=== PATIENT | female | born 1980 | race Caucasian/White ===

== ENCOUNTER 2021-07-16 09:42 | Outpatient (REF) | payer OTHER, SELFPAY ==
--- NOTE | ~2021-07-16 | XR_ITS ---
EXAMINATION: XR KNEE, LEFT CLINICAL INFORMATION: Left knee pain. COMPARISON: None TECHNIQUE: Four views of the left knee. FINDINGS: Bones and soft tissues are normal. No fracture or joint effusion. Alignment is anatomic. Joint spaces are well maintained. No abnormal soft tissue calcification. XR/XR knee LT 2V IMPRESSION: Unremarkable left knee.
== END 2021-07-16 09:43 | disposition home or self-care (01) ==
LOC: HO.XRAY 09:42
PROVIDERS: PCP Internal Medicine; Visit Provider Internal Medicine
DX: M25.562 Pain in left knee (principal)
CPT/HCPCS: 73560

== ENCOUNTER 2021-12-16 16:05 | Outpatient (REF) | payer OTHER, SELFPAY ==
--- NOTE | ~2021-12-16 | XR_ITS ---
EXAMINATION: XR CHEST CLINICAL INFORMATION: Cough. COMPARISON: None TECHNIQUE: 2 views of the chest were obtained. FINDINGS: The lungs are well-expanded and clear. The heart size and the pulmonary vascularity is normal. No gross bony abnormality seen. XR/XR chest 2V IMPRESSION: Unremarkable chest exam.
== END 2021-12-16 16:06 | disposition home or self-care (01) ==
LOC: HO.XRAY 16:05
PROVIDERS: PCP Internal Medicine; Visit Provider Internal Medicine
DX: R05.9 Cough, unspecified (principal)
CPT/HCPCS: 71046

== ENCOUNTER 2021-12-17 00:08 | Emergency (ER) | payer OTHER, SELFPAY ==
[2021-12-17 00:41] VITALS: BP 135/76; PULSE 105; RESP 16; TEMP 37.9; O2SAT 97; BMI 24.1
[2021-12-17 01:30] LABS: Influenza A PCR NEGATIVE (Negative); Influenza B PCR NEGATIVE (Negative); Resp Syncy Virus RNA Qual PCR NEGATIVE (Negative); SARS COV2 PCR INHOUSE NEGATIVE (Negative)
--- NOTE | 2021-12-17 01:49 | ED.URI ---
HPI - URI/Sore Throat General Chief Complaint: General Medical Stated Complaint: SOB Time Seen by Provider: 12/17/21 01:49 Source: patient Mode of arrival: ambulatory Limitations: no limitations History of Present Illness HPI Narrative: Patient history of asthma been coughing for last 3 weeks patient does smoke no fever no chills mostly mucoid phlegm. Patient seen by her PCP who started her on amoxicillin using inhaler about not getting better Related Data Previous Rx's Medication Instructions Recorded ibuprofen 600 mg tablet 600 mg PO TID #90 tab 09/12/21 ProAir HFA 90 mcg/actuation 2 puff INHALATION Q4H PRN #8.5 g NS 11/26/21 aerosol inhaler (albuterol sulfate) amoxicillin 250 mg capsule 250 mg PO Q8H #30 cap 12/10/21 oxycodone 10 mg tablet 10 mg PO Q6H PRN 28 Days #112 tab 12/10/21 albuterol sulfate 2.5 mg (3 mL) INHALATION Q4-6H PRN 12/17/21 #90 ml codeine 10 mg-guaifenesin 100 mg/5 10 ml PO Q6-8H PRN #237 ml 12/17/21 mL oral liquid nebulizers #1 ea 12/17/21 prednisone 20 mg tablet 40 mg PO DAILY #10 tab 12/17/21 Allergies Allergy/AdvReac Type Severity Reaction Status Date / Time No Known Allergies Allergy Unknown Verified 12/10/21 09:30 Review of Systems Review of Systems: Yes all other systems are reviewed and are negative PMFSH Past Medical History Medical History Asthma Surgical History H/O tooth extraction History of carpal tunnel release History of D&C History of tonsillectomy History of total cystectomy Family History Family History Father Alive and well Mother Alive and well Maternal Aunt Breast cancer Social History Social History Housing: House Alcohol intake: current Alcohol intake frequency: does not drink Patient Tobacco Use Status: Current everyday Tobacco user Tobacco use type: Cigarette Cigarettes Per Day: 10 e-Cigarette/Vaping Use: Never Used Second Hand Smoke Exposure: No Advance Directives: No Patient : No service: No Current occupational status: employed Cognitive needs: No Hearing needs: No Vision needs: No Physical Exam Vital Signs: Vital Signs: Last Vital Signs Temp 100.2 F 12/17/21 00:41 Pulse 105 H 12/17/21 02:06 Resp 18 12/17/21 02:06 BP 135/76 12/17/21 00:41 Pulse Ox 97 12/17/21 00:41 BMI result Body Mass Index 24.1 Appearance: Alert. Oriented X3. No acute distress. Frequent cough ENT: Pharynx normal. Oral Mucosa moist Neck: Normal inspection. Neck supple. CVS: Normal heart rate and rhythm. Pulses normal. Respiratory: No respiratory distress. Equal air entry bilateral, bilateral wheezing and rhonchi no rales Abdomen: Soft and nontender. Bowel sounds are present, no mass palpable, no CVA tenderness Skin: Skin warm and dry. Normal skin color. Normal skin turgor. Extremities: No lower extremity edema. No calf tenderness Neuro: Oriented X 3. MDM - URI/Sore Throat MDM Narrative Medical decision making narrative: Patient with history of asthma chronic smoker chest x-ray negative for any infiltrate COVID negative felt better after nebulizer treatment discharge patient on prednisone patient already taking amoxicillin will continue same Lab Data Attestation: I reviewed the patient's lab results. Labs: Lab Results 12/17/21 Range/Units 00:48 Influenza Type A (PCR) NEGATIVE (Negative) Influenza Type B (PCR) NEGATIVE (Negative) RSV RNA Qual (PCR) NEGATIVE (Negative) SARS-CoV-2 RNA (RT-PCR) NEGATIVE (Negative) Discharge Plan Discharge Clinical Impression: Asthmatic bronchitis Patient Disposition: Home, Self-Care Instructions: Acute Bronchitis (ED) Additional Instructions: Stop smoking Continue your daily inhaler 2 puffs every 4 hours as needed Prednisone as prescribed Continue your antibiotics Prescriptions: New albuterol sulfate 2.5 mg /3 mL (0.083 %) solution for nebulization 2.5 mg inhalation Q4-6H PRN (Reason: shortness of breath or wheezing) Qty: 90 0RF prednisone 20 mg tablet 40 mg PO DAILY Qty: 10 0RF (DME) nebulizers Misc See Rx Instructions .Route Qty: 1 0RF Rx Instructions: As directed williamfenesin 10-100 mg/5 mL liquid 10 ml PO Q6-8H PRN (Reason: cough) Qty: 237 0RF No Action ibuprofen 600 mg tablet 600 mg PO TID Qty: 90 8RF albuterol sulfate [ProAir HFA] 90 mcg/actuation HFA aerosol inhaler 2 puff inhalation Q4H PRN (Reason: bronchospasm) Qty: 8.5 8RF amoxicillin 250 mg capsule 250 mg PO Q8H Qty: 30 0RF oxycodone 10 mg tablet 10 mg PO Q6H PRN (Reason: pain) 28 Days Qty: 112 0RF Rx Instructions: Covering for Dr Griffith Interventions: ED Discharge Assessment Last Done: 12/17/21 03:15 Discharge Date/Time: 12/17/21 03:15
[2021-12-17] MEDS: predniSONE 20 MG TABLET 40 MG PO (02:03)
[2021-12-17] MEDS: Albuterol/Iprat 2.5/0.5MG 3 ML AMPUL.NEB INHALE (02:05)
[2021-12-17 02:06] VITALS: PULSE 105; RESP 18; O2SAT 97
== END 2021-12-17 03:15 | disposition home or self-care (01) ==
PROVIDERS: Emergency Provider Internal Medicine; PCP Internal Medicine
DX: J45.909 Unspecified asthma, uncomplicated (principal); R06.02 Shortness of breath; F17.210 Nicotine dependence, cigarettes, uncomplicated; Z20.822 Contact with and (suspected) exposure to COVID-19; Z71.6 Tobacco abuse counseling; Z79.899 Other long term (current) drug therapy
CPT/HCPCS: 0241U; 99283; 99284

== ENCOUNTER 2023-04-28 09:54 | Outpatient (AMB) | payer OTHER, SELFPAY ==
--- NOTE | 2023-04-28 09:55 | A.OFFPC_ITS ---
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 Accompanied by: Self / Same As Patient Allergies No Known Allergies Allergy (Unknown, Verified 04/28/23 09:55) Medication List - Last Reconciled 04/28/23 by Santosh Griffith MD albuterol sulfate 90 mcg/actuation 2 puffs inhalation Q4-6H PRN 30 days albuterol sulfate 90 mcg/actuation (Ventolin HFA) 2 puffs inhalation Q4-6H PRN 30 days albuterol sulfate 2.5 mg (3 mL) inhalation Q4-6H PRN fluticasone propionate 110 mcg/actuation (Flovent HFA) 1 puff inhalation BID ibuprofen 600 mg PO TID nebulizers As directed nicotine 1 patch transdermal DAILY oxycodone 10 mg PO Q6H PRN 28 days selenium sulfide 2.5% 1 appl topical DAILY 30 days Tobacco use date assessed: 04/28/23 Dental Screening Dental Screen Date: 04/28/23 Did you have a dental visit in the last 12 months?: Yes Did you have a dental problem in the last 6 months where you did not have access to dental care?: No Was dental information given to patient?: Patient has dentist HPI Med Management HPI Details chronic back pain; doing well; compliant [facility] Medical History Asthma Surgical History H/O tooth extraction History of carpal tunnel release History of D&C History of tonsillectomy History of total cystectomy Family History Father Alive and well Mother Alive and well Maternal Aunt Breast cancer Social History Housing: House Alcohol intake: current Alcohol intake frequency: does not drink Patient Tobacco Use Status: Current everyday Tobacco user Tobacco use type: Cigarette Cigarettes Per Day: 10 e-Cigarette/Vaping Use: Never Used Second Hand Smoke Exposure: Yes service: No Current occupational status: employed Cognitive needs: No Hearing needs: No Vision needs: No Questionnaire PHQ-9 Over the last 2 weeks, how often have you been bothered by any of the following problems? Depression Screening Interpretation: Negative Source: Developed by Drs. Jeronimo Kenney, Floyd Chung and colleagues, with an educational yara from [employer]. Thrive Questionnaire Date Thrive assessed: 10/14/22 Currently or been in a relationship where the following occur: no concerns reported AUDIT C Alcohol Use Questionnaire (AUDIT-C) 1. How often do you have a drink containing alcohol?: Never 3. How often do you have six or more drinks on one occasion?: Never Total Score: 0 Score Reviewed/Action Taken: Yes FRANCHESCA-7 AMB Questionnaire FRANCHESCA-7 Date FRANCHESCA - 7 assessed: 10/14/22 Source: Developed by Drs. Jeronimo Kenney, Shawna Grier, Floyd Marcelo and colleagues, with an educational yara from [employer]. Review of Systems Const Denies chills, Denies headache(s) and Denies weight loss ENT Denies headache(s) Card Denies chest pain, Denies syncope, Denies irregular heart rhythm and Denies dyspnea Resp Denies chest congestion, Denies cough and Denies dyspnea GI Denies abdominal pain, Denies change in stool character, Denies nausea and Denies vomiting Musc Denies deformity and Denies joint swelling Neuro Denies syncope and Denies headache(s) Physical exam (Primary Care) Vital Signs: Last Vital Signs Pulse 78 04/28/23 09:56 BP 160/82 H 04/28/23 09:56 Pulse Ox 98 04/28/23 09:56 Oxygen Delivery Method Room Air 04/28/23 09:56 BMI result Body Mass Index 21.6 Tobacco/Smoking Status: Tobacco use Status Tobacco use date assessed 04/28/23 04/28/23 09:59 Patient Tobacco Use Status Current everyday Tobacco 04/28/23 09:55 Tobacco use type Cigarette 04/28/23 09:55 e-Cigarette/Vaping Use Never Used 04/28/23 09:55 Depression Screening Interpretation: Negative Thrive Assessment: Date of Thrive Assessment Date Thrive assessed 10/14/22 04/28/23 09:55 Currently or been in a relationship where the following occur: no concerns reported Const General: cooperative, comfortable and no acute distress Resp Effort & Inspection: normal respiratory effort Auscultation: clear to auscultation bilaterally Cardio Jugular venous distension: no JVD Rate: regular rate Rhythm: regular rhythm GI Inspection: Yes normal to inspection Assessment and Plan Assessment & Plan (1) Back pain: Code(s): M54.9 - Dorsalgia, unspecified Plan: stable; same rx Orders: Orders MM tomosynthesis screen imp BI Today Z12.31 - Encounter for screening mammogram for malignant neoplasm of breast Medications: Refilled oxycodone Covering for Dr Griffith 10 mg PO Q6H 28 days PRN 112 tabs 0RF pain Coding Level of Care Code Est Pt Level 3 (16202) Diagnoses Back pain M54.9
[2023-04-28 09:56] VITALS: BP 160/82; PULSE 78; O2SAT 98; BMI 21.6
== END 2023-04-28 10:04 | disposition home or self-care (01) ==
PROVIDERS: PCP Internal Medicine; Visit Provider Internal Medicine
DX: M54.9 Dorsalgia, unspecified (principal)
CPT/HCPCS: 99213

== ENCOUNTER 2023-05-26 09:31 | Outpatient (AMB) | payer OTHER, SELFPAY ==
--- NOTE | 2023-05-26 09:34 | A.OFFPC_ITS ---
Vital Signs 05/26/23 09:35 Height 5 ft 5 in Weight 134 lb 2 oz BMI 22.3 BP 120/70 Blood Pressure Location Lt brachial Position Sitting Pulse 92 Pulse Source Pulse Oximeter Pulse Oximetry (%) 98 Oxygen Delivery Method Room Air Intake Visit Reasons: Med Management Intake Note: Patient is here to follow up on med management. 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: Not Required per policy Accompanied by: Self / Same As Patient Allergies No Known Allergies Allergy (Unknown, Verified 05/26/23 09:34) Medication List - Last Reconciled 05/26/23 by Santosh Griffith MD albuterol sulfate 90 mcg/actuation 2 puffs inhalation Q4-6H PRN 30 days albuterol sulfate 90 mcg/actuation (Ventolin HFA) 2 puffs inhalation Q4-6H PRN 30 days albuterol sulfate 2.5 mg (3 mL) inhalation Q4-6H PRN fluticasone propionate 110 mcg/actuation (Flovent HFA) 1 puff inhalation BID ibuprofen 600 mg PO TID nebulizers As directed nicotine 1 patch transdermal DAILY oxycodone 10 mg PO Q6H PRN 28 days selenium sulfide 2.5% 1 appl topical DAILY 30 days Tobacco use date assessed: 05/26/23 HPI Med Management HPI Details f/u chronic back pain; stable and compliant [facility] Medical History Asthma Surgical History H/O tooth extraction History of carpal tunnel release History of D&C History of tonsillectomy History of total cystectomy Family History Father Alive and well Mother Alive and well Maternal Aunt Breast cancer Social History Housing: House Alcohol intake: current Alcohol intake frequency: does not drink Patient Tobacco Use Status: Current everyday Tobacco user Tobacco use type: Cigarette Cigarettes Per Day: 10 e-Cigarette/Vaping Use: Never Used Second Hand Smoke Exposure: Yes service: No Current occupational status: employed Cognitive needs: No Hearing needs: No Vision needs: No Questionnaire PHQ-9 Over the last 2 weeks, how often have you been bothered by any of the following problems? Depression Screening Interpretation: Negative Source: Developed by Drs. Jeronimo Kenney, Shawna Grier, Floyd Marcelo and colleagues, with an educational yara from [employer]. Thrive Questionnaire Date Thrive assessed: 10/14/22 Currently or been in a relationship where the following occur: no concerns reported FRANCHESCA-7 AMB Questionnaire FRANCHESCA-7 Date FRANCHESCA - 7 assessed: 10/14/22 Source: Developed by Drs. Jeronimo Kenney, Shawna Grier, Floyd Marcelo and colleagues, with an educational yara from [employer]. Review of Systems Const Denies chills, Denies headache(s) and Denies weight loss ENT Denies headache(s) Card Denies chest pain, Denies syncope, Denies irregular heart rhythm and Denies dyspnea Resp Denies chest congestion, Denies cough and Denies dyspnea GI Denies abdominal pain, Denies change in stool character, Denies nausea and Denies vomiting Musc Denies deformity and Denies joint swelling Neuro Denies syncope and Denies headache(s) Physical exam (Primary Care) Vital Signs: Last Vital Signs Pulse 92 05/26/23 09:35 BP 120/70 05/26/23 09:35 Pulse Ox 98 05/26/23 09:35 Oxygen Delivery Method Room Air 05/26/23 09:35 BMI result Body Mass Index 22.3 Tobacco/Smoking Status: Tobacco use Status Tobacco use date assessed 05/26/23 05/26/23 09:41 Patient Tobacco Use Status Current everyday Tobacco 05/26/23 09:41 Tobacco use type Cigarette 05/26/23 09:41 e-Cigarette/Vaping Use Never Used 05/26/23 09:41 Depression Screening Interpretation: Negative Thrive Assessment: Date of Thrive Assessment Date Thrive assessed 10/14/22 05/26/23 09:41 Currently or been in a relationship where the following occur: no concerns reported Const General: cooperative, comfortable and no acute distress Resp Effort & Inspection: normal respiratory effort Auscultation: clear to auscultation bilaterally Cardio Jugular venous distension: no JVD Rate: regular rate Rhythm: regular rhythm GI Inspection: Yes normal to inspection Assessment and Plan Assessment & Plan (1) Back pain: Code(s): M54.9 - Dorsalgia, unspecified Plan: stable; same rx Medications: New methylprednisolone (Medrol (Gregorio)) PO PER PKG DIR 21 ea 0RF Refilled oxycodone Covering for Dr Griffith 10 mg PO Q6H 28 days PRN 112 tabs 0RF pain Coding Level of Care Code Est Pt Level 3 (60531) Diagnoses Back pain M54.9
[2023-05-26 09:35] VITALS: BP 120/70; PULSE 92; O2SAT 98; BMI 22.3
== END 2023-05-26 09:47 | disposition home or self-care (01) ==
PROVIDERS: PCP Internal Medicine; Visit Provider Internal Medicine
DX: M54.9 Dorsalgia, unspecified (principal)
CPT/HCPCS: 99213

== ENCOUNTER 2023-06-23 09:25 | Outpatient (AMB) | payer OTHER, SELFPAY ==
[2023-06-23 09:26] VITALS: BP 120/66; PULSE 67; BMI 21.5
--- NOTE | 2023-06-23 09:26 | A.OFFPC_ITS ---
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 Accompanied by: Self / Same As Patient Allergies No Known Allergies Allergy (Unknown, Verified 06/23/23 09:27) Medication List - Last Reconciled 06/23/23 by Santosh Griffith MD albuterol sulfate 90 mcg/actuation 2 puffs inhalation Q4-6H PRN 30 days albuterol sulfate 90 mcg/actuation (Ventolin HFA) 2 puffs inhalation Q4-6H PRN 30 days albuterol sulfate 2.5 mg (3 mL) inhalation Q4-6H PRN fluticasone propionate 110 mcg/actuation (Flovent HFA) 1 puff inhalation BID ibuprofen 600 mg PO TID methylprednisolone (Medrol (Gregorio)) PO PER PKG DIR nebulizers As directed nicotine 1 patch transdermal DAILY oxycodone 10 mg PO Q6H PRN 28 days selenium sulfide 2.5% 1 appl topical DAILY 30 days Tobacco use date assessed: 05/26/23 Dental Screening Dental Screen Date: 06/23/23 Did you have a dental visit in the last 12 months?: Yes Did you have a dental problem in the last 6 months where you did not have access to dental care?: No Was dental information given to patient?: Patient has dentist HPI Med Management HPI Details chronic back pain on rx; doing well and compliant [facility] Medical History Asthma Surgical History H/O tooth extraction History of carpal tunnel release History of D&C History of total cystectomy History of tonsillectomy Family History Father Alive and well Mother Alive and well Maternal Aunt Breast cancer Social History Housing: House Alcohol intake: current Alcohol intake frequency: does not drink Patient Tobacco Use Status: Current everyday Tobacco user Tobacco use type: Cigarette Cigarettes Per Day: 10 e-Cigarette/Vaping Use: Never Used Second Hand Smoke Exposure: Yes service: No Current occupational status: employed Cognitive needs: No Hearing needs: No Vision needs: No Questionnaire PHQ-9 Over the last 2 weeks, how often have you been bothered by any of the following problems? 1. Little interest or pleasure in doing things: not at all 2. Feeling down, depressed, or hopeless: not at all 3. Trouble falling or staying asleep, or sleeping too much: not at all 4. Feeling tired or having little energy: not at all 5. Poor appetite or overeating: not at all 6. Feeling bad about yourself - or that you are a failure or have let yourself or your family down: not at all 7. Trouble concentrating on things, such as reading the newspaper or watching television: not at all 8. Moving or speaking so slowly that other people could have noticed. Or the opposite - being so fidgety or restless that you have been moving around a lot more than usual: not at all 9. Thoughts that you would be better off or of hurting yourself in some way: not at all Total score: 0 Depression Screening Interpretation: Negative Source: Developed by Drs. Jeronimo Kenney, Shawna Grier, Floyd Marcelo and colleagues, with an educational yara from [employer]. Thrive Questionnaire Date Thrive assessed: 10/14/22 AUDIT C Alcohol Use Questionnaire (AUDIT-C) 1. How often do you have a drink containing alcohol?: Never 3. How often do you have six or more drinks on one occasion?: Never Total Score: 0 Score Reviewed/Action Taken: Yes FRANCHESCA-7 AMB Questionnaire FRANCHESCA-7 Date FRANCHESCA - 7 assessed: 10/14/22 Source: Developed by Drs. Jeronimo Kenney, Floyd Chung and colleagues, with an educational yara from [employer]. Review of Systems Const Denies chills, Denies headache(s) and Denies weight loss ENT Denies headache(s) Card Denies chest pain, Denies syncope, Denies irregular heart rhythm and Denies dyspnea Resp Denies chest congestion, Denies cough and Denies dyspnea GI Denies abdominal pain, Denies change in stool character, Denies nausea and Denies vomiting Musc Denies deformity and Denies joint swelling Neuro Denies syncope and Denies headache(s) Physical exam (Primary Care) Vital Signs: Last Vital Signs Pulse 67 06/23/23 09:26 BP 120/66 06/23/23 09:26 Oxygen Delivery Method Room Air 06/23/23 09:26 BMI result Body Mass Index 21.5 Tobacco/Smoking Status: Tobacco use Status Tobacco use date assessed 05/26/23 06/23/23 09:29 Patient Tobacco Use Status Current everyday Tobacco 06/23/23 09:29 Tobacco use type Cigarette 06/23/23 09:29 e-Cigarette/Vaping Use Never Used 06/23/23 09:29 PHQ-9: PHQ-9 Score PHQ-9: Total score 0 06/23/23 09:29 Depression Screening Interpretation: Negative Thrive Assessment: Date of Thrive Assessment Date Thrive assessed 10/14/22 06/23/23 09:29 Const General: cooperative, comfortable, no acute distress and alert Neck Neck: Yes no lymphadenopathy Thyroid: Thyroid normal Resp Effort & Inspection: normal respiratory effort Auscultation: clear to auscultation bilaterally Percussion: percussion normal Cardio Jugular venous distension: no JVD Palpation: normal PMI Rate: regular rate Rhythm: regular rhythm Heart sounds: S1 normal heart sound present and S2 normal heart sound present GI Inspection: Yes normal to inspection Palpation (GI): No hepatosplenomegaly present Skin General skin exam: no rashes or lesions noted Extrem General: Yes no clubbing, cyanosis or edema Assessment and Plan Assessment & Plan (1) Back pain: Code(s): M54.9 - Dorsalgia, unspecified Plan: stable; same rx Medications: Refilled oxycodone Covering for Dr Griffith 10 mg PO Q6H PRN 112 tabs 0RF pain 28 days Coding Level of Care Code Est Pt Level 3 (15186) Diagnoses Back pain M54.9
== END 2023-06-23 09:38 | disposition home or self-care (01) ==
PROVIDERS: Visit Provider Internal Medicine
DX: M54.9 Dorsalgia, unspecified (principal)
CPT/HCPCS: 99213

== ENCOUNTER 2023-08-18 09:28 | Outpatient (AMB) | payer SELFPAY ==
[2023-08-18 09:30] VITALS: BP 122/68; PULSE 65; O2SAT 100; BMI 21.6
--- NOTE | 2023-08-18 09:30 | A.OFFPC_ITS ---
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: Not Required per policy Accompanied by: Self / Same As Patient Allergies No Known Allergies Allergy (Unknown, Verified 08/18/23 09:31) Medication List - Last Reconciled 08/18/23 by Santosh Griffith MD albuterol sulfate 90 mcg/actuation 2 puffs inhalation Q4-6H PRN 30 days albuterol sulfate 90 mcg/actuation (Ventolin HFA) 2 puffs inhalation Q4-6H PRN 30 days albuterol sulfate 2.5 mg (3 mL) inhalation Q4-6H PRN fluticasone propionate 110 mcg/actuation (Flovent HFA) 1 puff inhalation BID ibuprofen 600 mg PO TID methylprednisolone (Medrol (Gregorio)) PO PER PKG DIR nebulizers As directed nicotine 1 patch transdermal DAILY oxycodone 10 mg PO Q6H PRN 28 days Tobacco use date assessed: 05/26/23 Dental Screening Dental Screen Date: 08/18/23 Did you have a dental visit in the last 12 months?: Yes Did you have a dental problem in the last 6 months where you did not have access to dental care?: No Was dental information given to patient?: Patient has dentist HPI Med Management HPI Details f/u chronic back pain on pain management; doing well PFSH Medical History Asthma Surgical History H/O tooth extraction History of carpal tunnel release History of D&C History of total cystectomy History of tonsillectomy Family History Father Alive and well Mother Alive and well Maternal Aunt Breast cancer Social History Housing: House Alcohol intake: current Alcohol intake frequency: does not drink Patient Tobacco Use Status: Current everyday Tobacco user Tobacco use type: Cigarette Cigarettes Per Day: 10 e-Cigarette/Vaping Use: Never Used Second Hand Smoke Exposure: Yes service: No Current occupational status: employed Cognitive needs: No Hearing needs: No Vision needs: No Questionnaire PHQ-9 Over the last 2 weeks, how often have you been bothered by any of the following problems? 1. Little interest or pleasure in doing things: not at all 2. Feeling down, depressed, or hopeless: not at all 3. Trouble falling or staying asleep, or sleeping too much: not at all 4. Feeling tired or having little energy: not at all 5. Poor appetite or overeating: not at all 6. Feeling bad about yourself - or that you are a failure or have let yourself or your family down: not at all 7. Trouble concentrating on things, such as reading the newspaper or watching television: not at all 8. Moving or speaking so slowly that other people could have noticed. Or the opposite - being so fidgety or restless that you have been moving around a lot more than usual: not at all 9. Thoughts that you would be better off or of hurting yourself in some way: not at all Total score: 0 Depression Screening Interpretation: Negative Depression Screening Done: Yes Source: Developed by Drs. Jeronimo Kenney, Shawna Grier, Floyd Marcelo and colleagues, with an educational yara from [employer]. Thrive Questionnaire Date Thrive assessed: 10/14/22 AUDIT C Alcohol Use Questionnaire (AUDIT-C) 1. How often do you have a drink containing alcohol?: Never 3. How often do you have six or more drinks on one occasion?: Never Total Score: 0 Score Reviewed/Action Taken: Yes FRANCHESCA-7 AMB Questionnaire FRANCHESCA-7 Date FRANCHESCA - 7 assessed: 10/14/22 Source: Developed by Drs. Jeronimo Kenney, Shawna Grier, Floyd Marcelo and colleagues, with an educational yara from [employer]. Review of Systems Const Denies chills, Denies headache(s) and Denies weight loss ENT Denies headache(s) Card Denies chest pain, Denies syncope, Denies irregular heart rhythm and Denies dyspnea Resp Denies chest congestion, Denies cough and Denies dyspnea GI Denies abdominal pain, Denies change in stool character, Denies nausea and Denies vomiting Musc Denies deformity and Denies joint swelling Neuro Denies syncope and Denies headache(s) Physical exam (Primary Care) Vital Signs: Last Vital Signs Pulse 65 08/18/23 09:30 BP 122/68 08/18/23 09:30 Pulse Ox 100 08/18/23 09:30 Oxygen Delivery Method Room Air 08/18/23 09:30 BMI result Body Mass Index 21.6 Tobacco/Smoking Status: Tobacco use Status Tobacco use date assessed 05/26/23 08/18/23 09:35 Patient Tobacco Use Status Current everyday Tobacco 08/18/23 09:35 Tobacco use type Cigarette 08/18/23 09:35 e-Cigarette/Vaping Use Never Used 08/18/23 09:35 PHQ-9: PHQ-9 Score PHQ-9: Total score 0 08/18/23 09:35 Depression Screening Interpretation: Negative Thrive Assessment: Date of Thrive Assessment Date Thrive assessed 10/14/22 08/18/23 09:35 Const General: cooperative, comfortable, no acute distress and alert Neck Neck: Yes no lymphadenopathy Thyroid: Thyroid normal Resp Effort & Inspection: normal respiratory effort Auscultation: clear to auscultation bilaterally Percussion: percussion normal Cardio Jugular venous distension: no JVD Palpation: normal PMI Rate: regular rate Rhythm: regular rhythm Heart sounds: S1 normal heart sound present and S2 normal heart sound present GI Inspection: Yes normal to inspection Palpation (GI): No hepatosplenomegaly present Skin General skin exam: no rashes or lesions noted Extrem General: Yes no clubbing, cyanosis or edema Assessment and Plan Assessment & Plan (1) Back pain: Code(s): M54.9 - Dorsalgia, unspecified Plan: stable; same rx Orders: Orders Influenza [id number] Immunization Today Z23 - Encounter for immunization Medications: New flu vacc [id number] 6mos up(PF) 0.5 mL IM ONCE 0.5 mL 0RF Z23 - Encounter for immunization azithromycin take 500 mg today (day 1), then 250 mg for 4 days (days 2-5) PO 6 tabs 0RF Refilled oxycodone Covering for Dr Griffith 10 mg PO Q6H PRN 112 tabs 0RF pain 28 days Coding Level of Care Code Est Pt Level 3 (43791) Diagnoses Back pain M54.9
== END 2023-08-18 09:46 | disposition home or self-care (01) ==
PROVIDERS: Visit Provider Internal Medicine
DX: M54.9 Dorsalgia, unspecified (principal); Z23 Encounter for immunization
CPT/HCPCS: 90471; 90686; 99213

== ENCOUNTER 2023-09-15 09:29 | Outpatient (AMB) | payer OTHER, SELFPAY ==
[2023-09-15 09:33] VITALS: BP 116/62; PULSE 70; O2SAT 100; BMI 21.6
--- NOTE | 2023-09-15 09:33 | A.OFFPC_ITS ---
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: Not Required per policy Accompanied by: Self / Same As Patient Allergies No Known Allergies Allergy (Unknown, Verified 09/15/23 09:34) Medication List - Last Reconciled 09/15/23 by Santosh Griffith MD albuterol sulfate 90 mcg/actuation 2 puffs inhalation Q4-6H PRN 30 days albuterol sulfate 90 mcg/actuation (Ventolin HFA) 2 puffs inhalation Q4-6H PRN 30 days albuterol sulfate 2.5 mg (3 mL) inhalation Q4-6H PRN azithromycin take 500 mg today (day 1), then 250 mg for 4 days (days 2-5) PO fluticasone propionate 110 mcg/actuation (Flovent HFA) 1 puff inhalation BID ibuprofen 600 mg PO TID methylprednisolone (Medrol (Gregorio)) PO PER PKG DIR nebulizers As directed nicotine 1 patch transdermal DAILY oxycodone 10 mg PO Q6H PRN 28 days Tobacco use date assessed: 05/26/23 Dental Screening Dental Screen Date: 09/15/23 Did you have a dental visit in the last 12 months?: Yes Did you have a dental problem in the last 6 months where you did not have access to dental care?: No Was dental information given to patient?: Patient has dentist HPI Med Management HPI Details f/u chronic back pain; doing well on rx; compliant [facility] Medical History Asthma Surgical History H/O tooth extraction History of carpal tunnel release History of D&C History of total cystectomy History of tonsillectomy Family History Father Alive and well Mother Alive and well Maternal Aunt Breast cancer Social History Housing: House Alcohol intake: current Alcohol intake frequency: does not drink Patient Tobacco Use Status: Current everyday Tobacco user Tobacco use type: Cigarette Cigarettes Per Day: 10 e-Cigarette/Vaping Use: Never Used Second Hand Smoke Exposure: Yes service: No Current occupational status: employed Cognitive needs: No Hearing needs: No Vision needs: No Questionnaire Thrive Questionnaire Date Thrive assessed: 10/14/22 FRANCHESCA-7 AMB Questionnaire FRANCHESCA-7 Date FRANCHESCA - 7 assessed: 10/14/22 Source: Developed by Drs. Jeronimo Kenney, Shawna Grier, Floyd Marcelo and colleagues, with an educational yara from [employer]. Review of Systems Const Denies chills, Denies headache(s) and Denies weight loss ENT Denies headache(s) Card Denies chest pain, Denies syncope, Denies irregular heart rhythm and Denies dyspnea Resp Denies chest congestion, Denies cough and Denies dyspnea GI Denies abdominal pain, Denies change in stool character, Denies nausea and Denies vomiting Musc Denies deformity and Denies joint swelling Neuro Denies syncope and Denies headache(s) Physical exam (Primary Care) Vital Signs: Last Vital Signs Pulse 70 09/15/23 09:33 BP 116/62 09/15/23 09:33 Pulse Ox 100 09/15/23 09:33 Oxygen Delivery Method Room Air 09/15/23 09:33 BMI result Body Mass Index 21.6 Tobacco/Smoking Status: Tobacco use Status Tobacco use date assessed 05/26/23 09/15/23 09:34 Patient Tobacco Use Status Current everyday Tobacco 09/15/23 09:34 Tobacco use type Cigarette 09/15/23 09:34 e-Cigarette/Vaping Use Never Used 09/15/23 09:34 Thrive Assessment: Date of Thrive Assessment Date Thrive assessed 10/14/22 09/15/23 09:34 Const General: cooperative, comfortable, no acute distress and alert Neck Neck: Yes no lymphadenopathy Thyroid: Thyroid normal Resp Effort & Inspection: normal respiratory effort Auscultation: clear to auscultation bilaterally Percussion: percussion normal Cardio Jugular venous distension: no JVD Palpation: normal PMI Rate: regular rate Rhythm: regular rhythm Heart sounds: S1 normal heart sound present and S2 normal heart sound present GI Inspection: Yes normal to inspection Palpation (GI): No hepatosplenomegaly present Skin General skin exam: no rashes or lesions noted Extrem General: Yes no clubbing, cyanosis or edema Assessment and Plan Assessment & Plan (1) Back pain: Code(s): M54.9 - Dorsalgia, unspecified Plan: stable; same rx Medications: Refilled oxycodone Covering for Dr Griffith 10 mg PO Q6H PRN 112 tabs 0RF pain 28 days Coding Level of Care Code Est Pt Level 3 (63268) Diagnoses Back pain M54.9
== END 2023-09-15 09:43 | disposition home or self-care (01) ==
PROVIDERS: Visit Provider Internal Medicine
DX: M54.9 Dorsalgia, unspecified (principal)
CPT/HCPCS: 99213

== ENCOUNTER 2023-10-13 09:26 | Outpatient (AMB) | payer OTHER, SELFPAY ==
[2023-10-13 09:28] VITALS: BP 112/62; PULSE 88; O2SAT 98; BMI 22.0
--- NOTE | 2023-10-13 09:28 | MHC.PC.OV ---
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: Not Required per policy Accompanied by: Self / Same As Patient Allergies No Known Allergies Allergy (Unknown, Verified 10/13/23 09:28) Medication List - Last Reconciled 10/13/23 by Santosh Griffith MD albuterol sulfate 90 mcg/actuation (Ventolin HFA) 2 puffs inhalation Q4-6H PRN 30 days albuterol sulfate 90 mcg/actuation 2 puffs inhalation Q4-6H PRN 30 days albuterol sulfate 2.5 mg (3 mL) inhalation Q4-6H PRN azithromycin take 500 mg today (day 1), then 250 mg for 4 days (days 2-5) PO fluticasone propionate 110 mcg/actuation (Flovent HFA) 1 puff inhalation BID ibuprofen 600 mg PO TID methylprednisolone (Medrol (Gregorio)) PO PER PKG DIR nebulizers As directed nicotine 1 patch transdermal DAILY oxycodone 10 mg PO Q6H PRN 28 days Tobacco use date assessed: 10/13/23 Dental Screening Dental Screen Date: 10/13/23 Did you have a dental visit in the last 12 months?: Yes Did you have a dental problem in the last 6 months where you did not have access to dental care?: No Was dental information given to patient?: Patient has dentist HPI Med Management HPI Details chronic back pain on rx; doing well PFSH Medical History Asthma Surgical History H/O tooth extraction History of carpal tunnel release History of D&C History of total cystectomy History of tonsillectomy Family History Father Alive and well Mother Alive and well Maternal Aunt Breast cancer Social History Housing: House Alcohol intake: current Alcohol intake frequency: does not drink Patient Tobacco Use Status: Current everyday Tobacco user Tobacco use type: Cigarette Cigarettes Per Day: 10 e-Cigarette/Vaping Use: Never Used Second Hand Smoke Exposure: Yes service: No Current occupational status: employed Cognitive needs: No Hearing needs: No Vision needs: No Questionnaire PHQ-9 Over the last 2 weeks, how often have you been bothered by any of the following problems? 1. Little interest or pleasure in doing things: not at all 2. Feeling down, depressed, or hopeless: not at all 3. Trouble falling or staying asleep, or sleeping too much: not at all 4. Feeling tired or having little energy: not at all 5. Poor appetite or overeating: not at all 6. Feeling bad about yourself - or that you are a failure or have let yourself or your family down: not at all 7. Trouble concentrating on things, such as reading the newspaper or watching television: not at all 8. Moving or speaking so slowly that other people could have noticed. Or the opposite - being so fidgety or restless that you have been moving around a lot more than usual: not at all 9. Thoughts that you would be better off or of hurting yourself in some way: not at all Total score: 0 Depression Screening Interpretation: Negative Depression Screening Done: Yes Source: Developed by Drs. Jeronimo Kenney, Shawna Grier, Floyd Marcelo and colleagues, with an educational yara from [employer]. Thrive Questionnaire Date Thrive assessed: 10/13/23 I am a: Patient What is your living situation today?: I have a steady place to live Within the past 12 months, did the food you bought not last and you didn't have the money to get more?: Never true Within the past 12 months, did you worry whether your food would run out before you got money to buy more?: Never true Do you have trouble paying for medicines?: No Do you have trouble getting transportation to medical appointments?: No Do you have trouble paying your heating and electricity bill?: No Do you have trouble taking care of your child, family member or friend?: No Do you have trouble with day-to-day activities such as bathing, preparing meals, shopping, managing finances, etc.?: No Are you currently unemployed and looking for a job?: No Are you interested in more education?: No Please select the resources that you would like help with: None AUDIT C Alcohol Use Questionnaire (AUDIT-C) 1. How often do you have a drink containing alcohol?: Never 3. How often do you have six or more drinks on one occasion?: Never Total Score: 0 Score Reviewed/Action Taken: Yes FRANCHESCA-7 AMB Questionnaire FRANCHESCA-7 Date FRANCHESCA - 7 assessed: 10/13/23 Feeling nervous, anxious, or on edge: 1 = Several days Not being able to stop or control worryin = Several days Worrying too much about different things: 1 = Several days Trouble relaxin = Not at all Being so restless that it is hard to sit still: 0 = Not at all Becoming easily annoyed or irritable: 0 = Not at all Feeling afraid as if something awful might happen: 0 = Not at all Total FRANCHESCA-7 score (0-4 normal; 5-9 mild; 10-14 moderate; 15-21 severe): 3 Source: Developed by Drs. Jeronimo Kenney, Shawna Grier, Floyd Marcelo and colleagues, with an educational yara from [employer]. Review of Systems Const Denies chills, Denies headache(s) and Denies weight loss ENT Denies headache(s) Card Denies chest pain, Denies syncope, Denies irregular heart rhythm and Denies dyspnea Resp Denies chest congestion, Denies cough and Denies dyspnea GI Denies abdominal pain, Denies change in stool character, Denies nausea and Denies vomiting Musc Denies deformity and Denies joint swelling Neuro Denies syncope and Denies headache(s) Physical exam (Primary Care) Vital Signs: Last Vital Signs Pulse 88 10/13/23 09:28 BP 112/62 10/13/23 09:28 Pulse Ox 98 10/13/23 09:28 Oxygen Delivery Method Room Air 10/13/23 09:28 BMI result Body Mass Index 22.0 Tobacco/Smoking Status: Tobacco use Status Tobacco use date assessed 10/13/23 10/13/23 09:33 Patient Tobacco Use Status Current everyday Tobacco 10/13/23 09:33 Tobacco use type Cigarette 10/13/23 09:33 e-Cigarette/Vaping Use Never Used 10/13/23 09:33 PHQ-9: PHQ-9 Score PHQ-9: Total score 0 10/13/23 09:33 Depression Screening Interpretation: Negative Thrive Assessment: Date of Thrive Assessment Date Thrive assessed 10/13/23 10/13/23 09:33 Const General: cooperative, comfortable, no acute distress and alert Neck Neck: Yes no lymphadenopathy Thyroid: Thyroid normal Resp Effort & Inspection: normal respiratory effort Auscultation: clear to auscultation bilaterally Percussion: percussion normal Cardio Jugular venous distension: no JVD Palpation: normal PMI Rate: regular rate Rhythm: regular rhythm Heart sounds: S1 normal heart sound present and S2 normal heart sound present GI Inspection: Yes normal to inspection Palpation (GI): No hepatosplenomegaly present Skin General skin exam: no rashes or lesions noted Extrem General: Yes no clubbing, cyanosis or edema Assessment and Plan Assessment & Plan (1) Back pain: Code(s): M54.9 - Dorsalgia, unspecified Plan: stable; same rx Medications: New azithromycin take 500 mg today (day 1), then 250 mg for 4 days (days 2-5) orally; 6 tabs 0RF Refilled oxycodone Covering for Dr Griffith 10 mg PO Q6H PRN 112 tabs 0RF pain 28 days Coding Level of Care Code Est Pt Level 3 (30975) Diagnoses Back pain M54.9
== END 2023-10-13 09:39 | disposition home or self-care (01) ==
PROVIDERS: PCP Internal Medicine; Visit Provider Internal Medicine
DX: M54.9 Dorsalgia, unspecified (principal)
CPT/HCPCS: 99213

== ENCOUNTER 2023-11-10 09:25 | Outpatient (AMB) | payer OTHER, SELFPAY ==
[2023-11-10 09:27] VITALS: BP 142/72; PULSE 88; O2SAT 98; BMI 21.8
--- NOTE | 2023-11-10 09:27 | MHC.PC.OV ---
Vital Signs 11/10/23 09:27 Height 5 ft 5 in Weight 131 lb BMI 21.8 BP 142/72 H Blood Pressure Location Lt brachial Position Sitting Pulse 88 Pulse Source Pulse Oximeter Pulse Oximetry (%) 98 Oxygen Delivery Method Room Air Intake Visit Reasons: Med Management Residential Sales Associate Required: No Finisher Plate: Not Required per policy Accompanied by: Self / Same As Patient Allergies No Known Allergies Allergy (Unknown, Verified 10/13/23 09:28) Tobacco use date assessed: 10/13/23 HPI Med Management HPI Details f/u chronic back pain; doing well on rx and compliant PFSH Medical History Asthma Surgical History H/O tooth extraction History of carpal tunnel release History of D&C History of total cystectomy History of tonsillectomy Family History Father Alive and well Mother Alive and well Maternal Aunt Breast cancer Social History Housing: House Alcohol intake: current Alcohol intake frequency: does not drink Patient Tobacco Use Status: Current everyday Tobacco user Tobacco use type: Cigarette Cigarettes Per Day: 10 e-Cigarette/Vaping Use: Never Used Second Hand Smoke Exposure: Yes service: No Current occupational status: employed Cognitive needs: No Hearing needs: No Vision needs: No Questionnaire Thrive Questionnaire Date Thrive assessed: 10/13/23 FRANCHESCA-7 AMB Questionnaire FRANCHESCA-7 Date FRANCHESCA - 7 assessed: 10/13/23 Source: Developed by Drs. Jeronimo Kenney, Shawna Grier, Floyd Marcelo and colleagues, with an educational yara from [employer]. Review of Systems Const Denies chills, Denies headache(s) and Denies weight loss ENT Denies headache(s) Card Denies chest pain, Denies syncope, Denies irregular heart rhythm and Denies dyspnea Resp Denies chest congestion, Denies cough and Denies dyspnea GI Denies abdominal pain, Denies change in stool character, Denies nausea and Denies vomiting Musc Denies deformity and Denies joint swelling Neuro Denies syncope and Denies headache(s) Physical exam (Primary Care) Vital Signs: Last Vital Signs Pulse 88 11/10/23 09:27 BP 142/72 H 11/10/23 09:27 Pulse Ox 98 11/10/23 09:27 Oxygen Delivery Method Room Air 11/10/23 09:27 BMI result Body Mass Index 21.8 Tobacco/Smoking Status: Tobacco use Status Tobacco use date assessed 10/13/23 11/10/23 09:29 Patient Tobacco Use Status Current everyday Tobacco 11/10/23 09:29 Tobacco use type Cigarette 11/10/23 09:29 e-Cigarette/Vaping Use Never Used 11/10/23 09:29 Thrive Assessment: Date of Thrive Assessment Date Thrive assessed 10/13/23 11/10/23 09:29 Const General: cooperative, comfortable, no acute distress and alert Neck Neck: Yes no lymphadenopathy Thyroid: Thyroid normal Resp Effort & Inspection: normal respiratory effort Auscultation: clear to auscultation bilaterally Percussion: percussion normal Cardio Jugular venous distension: no JVD Palpation: normal PMI Rate: regular rate Rhythm: regular rhythm Heart sounds: S1 normal heart sound present and S2 normal heart sound present GI Inspection: Yes normal to inspection Palpation (GI): No hepatosplenomegaly present Skin General skin exam: no rashes or lesions noted Extrem General: Yes no clubbing, cyanosis or edema Assessment and Plan Assessment & Plan (1) Back pain: Code(s): M54.9 - Dorsalgia, unspecified Plan: stable; same rx Medications: Refilled oxycodone Covering for Dr Griffith 10 mg PO Q6H PRN 112 tabs 0RF pain 28 days Coding Level of Care Code Est Pt Level 3 (63386) Diagnoses Back pain M54.9
== END 2023-11-10 09:50 | disposition home or self-care (01) ==
PROVIDERS: PCP Internal Medicine; Visit Provider Internal Medicine
DX: M54.9 Dorsalgia, unspecified (principal)
CPT/HCPCS: 99213

== ENCOUNTER 2023-12-08 09:29 | Outpatient (AMB) | payer OTHER, SELFPAY ==
[2023-12-08 09:34] VITALS: BP 116/70; PULSE 80; O2SAT 99; BMI 22.8
--- NOTE | 2023-12-08 09:34 | A.OFFPC_ITS ---
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: Not Required per policy Accompanied by: Self / Same As Patient Allergies No Known Allergies Allergy (Unknown, Verified 12/08/23 09:35) Medication List - Last Reconciled 12/08/23 by Santosh Griffith MD albuterol sulfate 90 mcg/actuation (Ventolin HFA) 2 puffs inhalation Q4-6H PRN 30 days albuterol sulfate 90 mcg/actuation 2 puffs inhalation Q4-6H PRN 30 days albuterol sulfate 2.5 mg (3 mL) inhalation Q4-6H PRN fluticasone propionate 110 mcg/actuation (Flovent HFA) 1 puff inhalation BID ibuprofen 600 mg PO TID methylprednisolone (Medrol (Gregorio)) PO PER PKG DIR nebulizers As directed nicotine 1 patch transdermal DAILY oxycodone 10 mg PO Q6H PRN 28 days Tobacco use date assessed: 10/13/23 Dental Screening Dental Screen Date: 12/08/23 Did you have a dental visit in the last 12 months?: Yes Did you have a dental problem in the last 6 months where you did not have access to dental care?: No Was dental information given to patient?: Patient has dentist HPI Med Management HPI Details f/u chronic back pain; stable on rx PFSH Medical History Asthma Surgical History H/O tooth extraction History of carpal tunnel release History of D&C History of total cystectomy History of tonsillectomy Family History Father Alive and well Mother Alive and well Maternal Aunt Breast cancer Social History Housing: House Alcohol intake: current Alcohol intake frequency: does not drink Patient Tobacco Use Status: Current everyday Tobacco user Tobacco use type: Cigarette Cigarettes Per Day: 10 e-Cigarette/Vaping Use: Never Used Second Hand Smoke Exposure: Yes service: No Current occupational status: employed Cognitive needs: No Hearing needs: No Vision needs: No Questionnaire Thrive Questionnaire Date Thrive assessed: 10/13/23 FRANCHESCA-7 AMB Questionnaire FRANCHESCA-7 Date FRANCHESCA - 7 assessed: 10/13/23 Source: Developed by Drs. Jeronimo Kenney, Shawna Grier, Floyd Marcelo and colleagues, with an educational yara from [employer]. Review of Systems Const Denies chills, Denies headache(s) and Denies weight loss ENT Denies headache(s) Card Denies chest pain, Denies syncope, Denies irregular heart rhythm and Denies dyspnea Resp Denies chest congestion, Denies cough and Denies dyspnea GI Denies abdominal pain, Denies change in stool character, Denies nausea and Denies vomiting Musc Denies deformity and Denies joint swelling Neuro Denies syncope and Denies headache(s) Physical exam (Primary Care) Vital Signs: Last Vital Signs Pulse 80 12/08/23 09:34 BP 116/70 12/08/23 09:34 Pulse Ox 99 12/08/23 09:34 Oxygen Delivery Method Room Air 12/08/23 09:34 BMI result Body Mass Index 22.8 Tobacco/Smoking Status: Tobacco use Status Tobacco use date assessed 10/13/23 12/08/23 09:39 Patient Tobacco Use Status Current everyday Tobacco 12/08/23 09:39 Tobacco use type Cigarette 12/08/23 09:39 e-Cigarette/Vaping Use Never Used 12/08/23 09:39 Thrive Assessment: Date of Thrive Assessment Date Thrive assessed 10/13/23 12/08/23 09:39 Const General: cooperative, comfortable, no acute distress and alert Neck Neck: Yes no lymphadenopathy Thyroid: Thyroid normal Resp Effort & Inspection: normal respiratory effort Auscultation: clear to auscultation bilaterally Percussion: percussion normal Cardio Jugular venous distension: no JVD Palpation: normal PMI Rate: regular rate Rhythm: regular rhythm Heart sounds: S1 normal heart sound present and S2 normal heart sound present GI Inspection: Yes normal to inspection Palpation (GI): No hepatosplenomegaly present Skin General skin exam: no rashes or lesions noted Extrem General: Yes no clubbing, cyanosis or edema Assessment and Plan Assessment & Plan (1) Back pain: Code(s): M54.9 - Dorsalgia, unspecified Plan: stable; same rx Medications: Refilled albuterol sulfate 2.5 mg (3 mL) inhalation Q4-6H PRN 90 mL 0RF shortness of breath or wheezing oxycodone Covering for Dr Griffith 10 mg PO Q6H PRN 112 tabs 0RF pain 28 days Coding Level of Care Code Est Pt Level 3 (73633) Diagnoses Back pain M54.9
== END 2023-12-08 09:54 | disposition home or self-care (01) ==
PROVIDERS: PCP Internal Medicine; Visit Provider Internal Medicine
DX: M54.9 Dorsalgia, unspecified (principal)
CPT/HCPCS: 99213

== ENCOUNTER 2024-01-05 09:17 | Outpatient (AMB) | payer OTHER, SELFPAY ==
--- NOTE | 2024-01-05 09:18 | A.OFFPC_ITS ---
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: No Marketing Sales Consultant: Not Required per policy Accompanied by: Self / Same As Patient Allergies No Known Allergies Allergy (Unknown, Verified 01/05/24 09:19) Medication List - Last Reconciled 01/05/24 by Santosh Griffith MD albuterol sulfate 90 mcg/actuation (Ventolin HFA) 2 puffs inhalation Q4-6H PRN 30 days albuterol sulfate 90 mcg/actuation 2 puffs inhalation Q4-6H PRN 30 days albuterol sulfate 2.5 mg (3 mL) inhalation Q4-6H PRN fluticasone propionate 110 mcg/actuation (Flovent HFA) 1 puff inhalation BID ibuprofen 600 mg PO TID methylprednisolone (Medrol (Gregorio)) PO PER PKG DIR nebulizers As directed nicotine 1 patch transdermal DAILY oxycodone 10 mg PO Q6H PRN 28 days Tobacco use date assessed: 10/13/23 Dental Screening Dental Screen Date: 12/08/23 HPI Med Management HPI Details chronic back pain on rx; doing well and compliant [facility] Medical History Asthma Surgical History H/O tooth extraction History of carpal tunnel release History of D&C History of total cystectomy History of tonsillectomy Family History Father Alive and well Mother Alive and well Maternal Aunt Breast cancer Social History Housing: House Alcohol intake: current Alcohol intake frequency: does not drink Patient Tobacco Use Status: Current everyday Tobacco user Tobacco use type: Cigarette Cigarettes Per Day: 10 e-Cigarette/Vaping Use: Never Used Second Hand Smoke Exposure: Yes service: No Current occupational status: employed Cognitive needs: No Hearing needs: No Vision needs: No Questionnaire Thrive Questionnaire Date Thrive assessed: 10/13/23 FRANCHESCA-7 AMB Questionnaire FRANCHESCA-7 Date FRANCHESCA - 7 assessed: 10/13/23 Source: Developed by Drs. Jeronimo Kenney, Shawna Grier, Floyd Marcelo and colleagues, with an educational yara from [employer]. Review of Systems Const Denies chills, Denies headache(s) and Denies weight loss ENT Denies headache(s) Card Denies chest pain, Denies syncope, Denies irregular heart rhythm and Denies dyspnea Resp Denies chest congestion, Denies cough and Denies dyspnea GI Denies abdominal pain, Denies change in stool character, Denies nausea and Denies vomiting Musc Denies deformity and Denies joint swelling Neuro Denies syncope and Denies headache(s) Physical exam (Primary Care) Vital Signs: Last Vital Signs Pulse 79 01/05/24 09:19 BP 102/60 01/05/24 09:19 Pulse Ox 99 01/05/24 09:19 Oxygen Delivery Method Room Air 01/05/24 09:19 BMI result Body Mass Index 23.5 Tobacco/Smoking Status: Tobacco use Status Tobacco use date assessed 10/13/23 01/05/24 09:19 Patient Tobacco Use Status Current everyday Tobacco 01/05/24 09:19 Tobacco use type Cigarette 01/05/24 09:19 e-Cigarette/Vaping Use Never Used 01/05/24 09:19 Thrive Assessment: Date of Thrive Assessment Date Thrive assessed 10/13/23 01/05/24 09:19 Const General: cooperative, comfortable, no acute distress and alert Neck Neck: Yes no lymphadenopathy Thyroid: Thyroid normal Resp Effort & Inspection: normal respiratory effort Auscultation: clear to auscultation bilaterally Percussion: percussion normal Cardio Jugular venous distension: no JVD Palpation: normal PMI Rate: regular rate Rhythm: regular rhythm Heart sounds: S1 normal heart sound present and S2 normal heart sound present GI Inspection: Yes normal to inspection Palpation (GI): No hepatosplenomegaly present Skin General skin exam: no rashes or lesions noted Extrem General: Yes no clubbing, cyanosis or edema Assessment and Plan Assessment & Plan (1) Back pain: Code(s): M54.9 - Dorsalgia, unspecified Plan: stable; same rx Orders: Orders Lipid Panel Today E78.5 - Hyperlipidemia, unspecified Complete Blood Count Auto Diff Today D64.9 - Anemia, unspecified Comprehensive [place]. Panel Fast Today N28.9 - Disorder of kidney and ureter, unspecified Thyroid Stimulating Hormone Today E03.9 - Hypothyroidism, unspecified Medications: Refilled oxycodone Covering for Dr Griffith 10 mg PO Q6H PRN 112 tabs 0RF pain 28 days Coding Level of Care Code Est Pt Level 3 (31895) Diagnoses Back pain M54.9
[2024-01-05 09:19] VITALS: BP 102/60; PULSE 79; O2SAT 99; BMI 23.5
== END 2024-01-05 09:42 | disposition home or self-care (01) ==
PROVIDERS: PCP Internal Medicine; Visit Provider Internal Medicine
DX: M54.9 Dorsalgia, unspecified (principal)
CPT/HCPCS: 99213

== ENCOUNTER 2024-02-02 08:56 | Outpatient (REF) | payer OTHER, SELFPAY ==
[2024-02-02 09:16] LABS: MANUAL DIFF FLAG NO
[2024-02-02 09:45] LABS: Basophils Absolute Auto 0.1 X10*3/uL (0.0-0.2); Basophils Percent Auto 0.7 % (0-2); Eosinophils Absolute Auto 0.6 X10*3/uL (0.0-0.4); Eosinophils Percent Auto 8.1 % (0-4); Hematocrit 35.1 % (37.0-47.0); Hemoglobin 11.8 g/dl (12.0-16.0); Imm Gran Abs Auto 0.02 X10*3/uL (0.00-0.03); Imm Gran Pct Auto 0.3 % (0.0-0.4); Mean Corpuscular HGB Conc 33.6 g/dl (31.0-35.0); Mean Corpuscular Hemoglobin 30.7 pg (27.0-33.0); Mean Corpuscular Volume 91.4 fL (80.0-98.0); Mean Platelet Volume 10.9 fL (9.4-12.3); Monocytes Absolute Auto 0.5 X10*3/uL (0.1-1.2); Monocytes Percent Auto 6.5 % (2-11); Neutrophils Absolute Auto 4.3 x10*3/uL (2.0-8.3); Neutrophils Percent Auto 57.4 % (45-73); Platelet Count 362 X10*3/uL (160-400); Red Blood Count 3.84 X10*6/uL (4.20-5.50); Red Cell Distribution Width 12.8 % (11.0-16.0); White Blood Count 7.6 X10*3/uL (4.8-10.8)
[2024-02-02 10:33] LABS: Alkaline Phosphatase 70 U/L (39-117); Anion Gap 13 (12-20); Aspartate Amino Transferase 21 U/L (5-31); Bilirubin Total 0.3 mg/dL (0.0-1.0); Blood Urea Nitrogen 10 mg/dL (9-16); Calcium 9.2 mg/dL (8.4-10.2); Carbon Dioxide 27 mmol/L (22-29); Chloride 104 mmol/L (96-108); Cholesterol 171 mg/dL (<200); Estimated Glomerular Filt Rate > 60; Glucose Fasting 113 mg/dL (60-99); HDL Cholesterol 48 mg/dL (>40); LDL Cholesterol Calculated 111 mg/dL (<100); Potassium 3.8 mmol/L (3.3-5.1); Sodium 140 mmol/L (135-145); Triglycerides 61 mg/dL (<150)
[2024-02-02 10:35] LABS: Thyroid Stimulating Hormone 0.46 uIU/mL (0.32-4.0)
== END 2024-02-02 08:57 | disposition home or self-care (01) ==
LOC: HO.LAB 08:56
PROVIDERS: Visit Provider Internal Medicine
DX: E78.5 Hyperlipidemia, unspecified (principal); E03.9 Hypothyroidism, unspecified; D64.9 Anemia, unspecified; N28.9 Disorder of kidney and ureter, unspecified
CPT/HCPCS: 36415; 80053; 80061; 84443; 85025

== ENCOUNTER 2024-02-02 09:29 | Outpatient (AMB) | payer OTHER, SELFPAY ==
[2024-02-02 09:31] VITALS: BP 140/80; PULSE 80; O2SAT 99; BMI 22.8
--- NOTE | 2024-02-02 09:31 | MHC.PC.OV ---
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 Quality Assurance Lab Technician: Not Required per policy Accompanied by: Self / Same As Patient Allergies No Known Allergies Allergy (Unknown, Verified 02/02/24 09:31) Medication List - Last Reconciled 02/02/24 by Santosh Griffith MD albuterol sulfate 90 mcg/actuation (Ventolin HFA) 2 puffs inhalation Q4-6H PRN 30 days albuterol sulfate 90 mcg/actuation 2 puffs inhalation Q4-6H PRN 30 days albuterol sulfate 2.5 mg (3 mL) inhalation Q4-6H PRN fluticasone propionate 110 mcg/actuation (Flovent HFA) 1 puff inhalation BID ibuprofen 600 mg PO TID methylprednisolone (Medrol (Gregorio)) PO PER PKG DIR nebulizers As directed nicotine 1 patch transdermal DAILY oxycodone 10 mg PO Q6H PRN 28 days Tobacco use date assessed: 10/13/23 Dental Screening Dental Screen Date: 12/08/23 HPI Med Management HPI Details chronic back pain on pain mangement; stable and compliant [facility] Medical History Asthma Surgical History H/O tooth extraction History of carpal tunnel release History of D&C History of total cystectomy History of tonsillectomy Family History Father Alive and well Mother Alive and well Maternal Aunt Breast cancer Social History Housing: House Alcohol intake: current Alcohol intake frequency: does not drink Patient Tobacco Use Status: Current everyday Tobacco user Tobacco use type: Cigarette Cigarettes Per Day: 10 e-Cigarette/Vaping Use: Never Used Second Hand Smoke Exposure: Yes service: No Current occupational status: employed Cognitive needs: No Hearing needs: No Vision needs: No Questionnaire Thrive Questionnaire Date Thrive assessed: 10/13/23 FRANCHESCA-7 AMB Questionnaire FRANCHESCA-7 Date FRANCHESCA - 7 assessed: 10/13/23 Source: Developed by Drs. Jeronimo Kenney, Shawna Grier, Floyd Marcelo and colleagues, with an educational yara from [employer]. Review of Systems Const Denies chills, Denies headache(s) and Denies weight loss ENT Denies headache(s) Card Denies chest pain, Denies syncope, Denies irregular heart rhythm and Denies dyspnea Resp Denies chest congestion, Denies cough and Denies dyspnea GI Denies abdominal pain, Denies change in stool character, Denies nausea and Denies vomiting Musc Denies deformity and Denies joint swelling Neuro Denies syncope and Denies headache(s) Physical exam (Primary Care) Vital Signs: Last Vital Signs Pulse 80 02/02/24 09:31 BP 140/80 H 02/02/24 09:31 Pulse Ox 99 02/02/24 09:31 Oxygen Delivery Method Room Air 02/02/24 09:31 BMI result Body Mass Index 22.8 Tobacco/Smoking Status: Tobacco use Status Tobacco use date assessed 10/13/23 02/02/24 09:32 Patient Tobacco Use Status Current everyday Tobacco 02/02/24 09:32 Tobacco use type Cigarette 02/02/24 09:32 e-Cigarette/Vaping Use Never Used 02/02/24 09:32 Thrive Assessment: Date of Thrive Assessment Date Thrive assessed 10/13/23 02/02/24 09:32 Const General: cooperative, comfortable, no acute distress and alert Neck Neck: Yes no lymphadenopathy Thyroid: Thyroid normal Resp Effort & Inspection: normal respiratory effort Auscultation: clear to auscultation bilaterally Percussion: percussion normal Cardio Jugular venous distension: no JVD Palpation: normal PMI Rate: regular rate Rhythm: regular rhythm Heart sounds: S1 normal heart sound present and S2 normal heart sound present GI Inspection: Yes normal to inspection Palpation (GI): No hepatosplenomegaly present Skin General skin exam: no rashes or lesions noted Extrem General: Yes no clubbing, cyanosis or edema Assessment and Plan Assessment & Plan (1) Back pain: Code(s): M54.9 - Dorsalgia, unspecified Plan: stable; same rx Medications: Refilled ibuprofen 600 mg PO TID 90 tabs 8RF albuterol sulfate 2.5 mg (3 mL) inhalation Q4-6H PRN 90 mL 0RF shortness of breath or wheezing oxycodone Covering for Dr Griffith 10 mg PO Q6H PRN 112 tabs 0RF pain 28 days Coding Level of Care Code Est Pt Level 3 (59567) Diagnoses Back pain M54.9
== END 2024-02-02 09:45 | disposition home or self-care (01) ==
PROVIDERS: PCP Internal Medicine; Visit Provider Internal Medicine
DX: M54.9 Dorsalgia, unspecified (principal)
CPT/HCPCS: 99213

== ENCOUNTER 2024-03-29 09:50 | Outpatient (AMB) | payer OTHER, SELFPAY ==
[2024-03-29 09:54] VITALS: BP 130/64; PULSE 69; O2SAT 99; BMI 21.8
--- NOTE | 2024-03-29 09:54 | A.OFFPC_ITS ---
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 per policy Accompanied by: Self / Same As Patient Allergies No Known Allergies Allergy (Unknown, Verified 03/29/24 09:54) Tobacco use date assessed: 10/13/23 Dental Screening Dental Screen Date: 12/08/23 HPI Med Management HPI Details chronic back pain on rx; LDD; compliant with regimen PFSH Medical History Asthma Surgical History H/O tooth extraction History of carpal tunnel release History of D&C History of total cystectomy History of tonsillectomy Family History Father Alive and well Mother Alive and well Maternal Aunt Breast cancer Social History Housing: House Alcohol intake: current Alcohol intake frequency: does not drink Patient Tobacco Use Status: Current everyday Tobacco user Tobacco use type: Cigarette Cigarettes Per Day: 10 e-Cigarette/Vaping Use: Never Used Second Hand Smoke Exposure: Yes service: No Current occupational status: employed Cognitive needs: No Hearing needs: No Vision needs: No Questionnaire Thrive Questionnaire Date Thrive assessed: 10/13/23 FRANCHESCA-7 AMB Questionnaire FRANCHESCA-7 Date FRANCHESCA - 7 assessed: 10/13/23 Source: Developed by Drs. Jeronimo Kenney, Shawna Grier, Floyd Marcelo and colleagues, with an educational yara from [employer].. Review of Systems Const Denies chills, Denies headache(s) and Denies weight loss ENT Denies headache(s) Card Denies chest pain, Denies syncope, Denies irregular heart rhythm and Denies dyspnea Resp Denies chest congestion, Denies cough and Denies dyspnea GI Denies abdominal pain, Denies change in stool character, Denies nausea and Denies vomiting Musc Denies deformity and Denies joint swelling Neuro Denies syncope and Denies headache(s) Physical exam (Primary Care) Vital Signs: Last Vital Signs Pulse 69 03/29/24 09:54 BP 130/64 03/29/24 09:54 Pulse Ox 99 03/29/24 09:54 Oxygen Delivery Method Room Air 03/29/24 09:54 BMI result Body Mass Index 21.8 Tobacco/Smoking Status: Tobacco use Status Tobacco use date assessed 10/13/23 03/29/24 09:54 Patient Tobacco Use Status Current everyday Tobacco 03/29/24 09:54 Tobacco use type Cigarette 03/29/24 09:54 e-Cigarette/Vaping Use Never Used 03/29/24 09:54 Thrive Assessment: Date of Thrive Assessment Date Thrive assessed 10/13/23 03/29/24 09:54 Const General: cooperative, comfortable, no acute distress and alert Neck Neck: Yes no lymphadenopathy Thyroid: Thyroid normal Resp Effort & Inspection: normal respiratory effort Auscultation: clear to auscultation bilaterally Percussion: percussion normal Cardio Jugular venous distension: no JVD Palpation: normal PMI Rate: regular rate Rhythm: regular rhythm Heart sounds: S1 normal heart sound present and S2 normal heart sound present GI Inspection: Yes normal to inspection Palpation (GI): No hepatosplenomegaly present Skin General skin exam: no rashes or lesions noted Extrem General: Yes no clubbing, cyanosis or edema Assessment and Plan Assessment & Plan (1) Back pain: Code(s): M54.9 - Dorsalgia, unspecified Plan: stable; same rx Medications: Refilled oxycodone Covering for Dr Griffith 10 mg PO Q6H 28 days PRN 112 tabs 0RF pain Coding Level of Care Code Est Pt Level 3 (45755) Diagnoses Back pain M54.9
== END 2024-03-29 10:04 | disposition home or self-care (01) ==
PROVIDERS: PCP Internal Medicine; Visit Provider Internal Medicine
DX: M54.9 Dorsalgia, unspecified (principal)
CPT/HCPCS: 99213

== ENCOUNTER 2024-05-24 10:49 | Outpatient (AMB) | payer OTHER, SELFPAY ==
[2024-05-24 10:50] VITALS: BP 142/82; PULSE 98; O2SAT 98; BMI 21.6
--- NOTE | 2024-05-24 10:50 | A.OFFPC_ITS ---
Vital Signs 05/24/24 10:50 Height 5 ft 5 in Weight 130 lb BMI 21.6 BP 142/82 H Blood Pressure Location Lt brachial Position Sitting Pulse 98 Pulse Source Pulse Oximeter Pulse Oximetry (%) 98 Oxygen Delivery Method Room Air Intake Visit Reasons: med management Allergies No Known Allergies Allergy (Unknown, Verified 05/24/24 10:50) Tobacco use date assessed: 10/13/23 Dental Screening Dental Screen Date: 05/24/24 Did you have a dental visit in the last 12 months?: Yes Did you have a dental problem in the last 6 months where you did not have access to dental care?: No Was dental information given to patient?: Patient has dentist HPI med management HPI Details chronic low back pain; compliant with regimen [facility] Medical History Asthma Surgical History H/O tooth extraction History of carpal tunnel release History of D&C History of total cystectomy History of tonsillectomy Family History Father Alive and well Mother Alive and well Maternal Aunt Breast cancer Social History Housing: House Alcohol intake: current Alcohol intake frequency: does not drink Patient Tobacco Use Status: Current everyday Tobacco user Tobacco use type: Cigarette Cigarettes Per Day: 10 e-Cigarette/Vaping Use: Never Used Second Hand Smoke Exposure: Yes service: No Current occupational status: employed Cognitive needs: No Hearing needs: No Vision needs: No Questionnaire PHQ-9 Over the last 2 weeks, how often have you been bothered by any of the following problems? 1. Little interest or pleasure in doing things: not at all 2. Feeling down, depressed, or hopeless: not at all 3. Trouble falling or staying asleep, or sleeping too much: not at all 4. Feeling tired or having little energy: not at all 5. Poor appetite or overeating: not at all 6. Feeling bad about yourself - or that you are a failure or have let yourself or your family down: not at all 7. Trouble concentrating on things, such as reading the newspaper or watching television: not at all 8. Moving or speaking so slowly that other people could have noticed. Or the opposite - being so fidgety or restless that you have been moving around a lot more than usual: not at all 9. Thoughts that you would be better off or of hurting yourself in some way: not at all Total score: 0 Depression Screening Interpretation: Negative Depression Screening Done: Yes Source: Developed by Drs. Jeronimo Kenney, Shawna Grier, Floyd Marcelo and colleagues, with an educational yara from [email or web address]. Thrive Questionnaire Date Thrive assessed: 10/13/23 AUDIT C Alcohol Use Questionnaire (AUDIT-C) 1. How often do you have a drink containing alcohol?: Never 3. How often do you have six or more drinks on one occasion?: Never Total Score: 0 Score Reviewed/Action Taken: Yes FRANCHESCA-7 AMB Questionnaire FRANCHESCA-7 Date FRANCHESCA - 7 assessed: 10/13/23 Source: Developed by Drs. Jeronimo Kenney, Shawna Grier, Floyd Marcelo and colleagues, with an educational yara from [email or web address]. Review of Systems Const Denies chills, Denies headache(s) and Denies weight loss ENT Denies headache(s) Card Denies chest pain, Denies syncope, Denies irregular heart rhythm and Denies dyspnea Resp Denies chest congestion, Denies cough and Denies dyspnea GI Denies abdominal pain, Denies change in stool character, Denies nausea and Denies vomiting Musc Denies deformity and Denies joint swelling Neuro Denies syncope and Denies headache(s) Physical exam (Primary Care) Vital Signs: Last Vital Signs Pulse 98 05/24/24 10:50 BP 142/82 H 05/24/24 10:50 Pulse Ox 98 05/24/24 10:50 Oxygen Delivery Method Room Air 05/24/24 10:50 BMI result Body Mass Index 21.6 Tobacco/Smoking Status: Tobacco use Status Tobacco use date assessed 10/13/23 05/24/24 10:54 Patient Tobacco Use Status Current everyday Tobacco 05/24/24 10:54 Tobacco use type Cigarette 05/24/24 10:54 e-Cigarette/Vaping Use Never Used 05/24/24 10:54 PHQ-9: PHQ-9 Score PHQ-9: Total score 0 05/24/24 10:54 Depression Screening Interpretation: Negative Thrive Assessment: Date of Thrive Assessment Date Thrive assessed 10/13/23 05/24/24 10:54 Const General: cooperative, comfortable, no acute distress and alert Neck Neck: Yes no lymphadenopathy Thyroid: Thyroid normal Resp Effort & Inspection: normal respiratory effort Auscultation: clear to auscultation bilaterally Percussion: percussion normal Cardio Jugular venous distension: no JVD Palpation: normal PMI Rate: regular rate Rhythm: regular rhythm Heart sounds: S1 normal heart sound present and S2 normal heart sound present GI Inspection: Yes normal to inspection Palpation (GI): No hepatosplenomegaly present Skin General skin exam: no rashes or lesions noted Extrem General: Yes no clubbing, cyanosis or edema Assessment and Plan Assessment & Plan (1) Back pain: Code(s): M54.9 - Dorsalgia, unspecified Plan: stable; same rx Medications: Refilled oxycodone Covering for Dr Griffith 10 mg PO Q6H 28 days PRN 112 tabs 0RF pain Coding Level of Care Code Est Pt Level 3 (72795) Diagnoses Back pain M54.9
== END 2024-05-24 11:08 | disposition home or self-care (01) ==
PROVIDERS: PCP Internal Medicine; Visit Provider Internal Medicine
DX: M54.9 Dorsalgia, unspecified (principal)
CPT/HCPCS: 99213

== ENCOUNTER 2024-07-19 09:35 | Outpatient (AMB) | payer OTHER, SELFPAY ==
--- NOTE | 2024-07-19 09:35 | A.OFFPC_ITS ---
Vital Signs 07/19/24 09:36 Height 5 ft 5 in Weight 131 lb BMI 21.8 BP 114/60 Blood Pressure Location Lt brachial Position Sitting Pulse 67 Pulse Source Pulse Oximeter Pulse Oximetry (%) 97 Oxygen Delivery Method Room Air Intake Visit Reasons: Med management Standard Machine Stitcher Required: No Accompanied by: Self / Same As Patient Allergies No Known Allergies Allergy (Unknown, Verified 07/19/24 09:36) Medication List - Last Reconciled 07/19/24 by Santosh Griffith MD albuterol sulfate 90 mcg/actuation (Ventolin HFA) 2 puffs inhalation Q4-6H PRN 30 days albuterol sulfate 90 mcg/actuation 2 puffs inhalation Q4-6H PRN 30 days albuterol sulfate 2.5 mg (3 mL) inhalation Q4-6H PRN fluticasone propionate 110 mcg/actuation (Flovent HFA) 1 puff inhalation BID ibuprofen 600 mg PO TID nebulizers As directed nicotine 1 patch transdermal DAILY oxycodone 10 mg PO Q6H PRN 28 days Tobacco use date assessed: 10/13/23 Dental Screening Dental Screen Date: 05/24/24 HPI Med management HPI Details chronic back pain on rx; doing well and compliant [facility] Medical History Asthma Surgical History H/O tooth extraction History of carpal tunnel release History of D&C History of total cystectomy History of tonsillectomy Family History Father Alive and well Mother Alive and well Maternal Aunt Breast cancer Social History Housing: House Alcohol intake: current Alcohol intake frequency: does not drink Patient Tobacco Use Status: Current everyday Tobacco user Tobacco use type: Cigarette Cigarettes Per Day: 10 e-Cigarette/Vaping Use: Never Used Second Hand Smoke Exposure: Yes service: No Current occupational status: employed Cognitive needs: No Hearing needs: No Vision needs: No Questionnaire PHQ-9 Over the last 2 weeks, how often have you been bothered by any of the following problems? 1. Little interest or pleasure in doing things: not at all 2. Feeling down, depressed, or hopeless: not at all 3. Trouble falling or staying asleep, or sleeping too much: not at all 4. Feeling tired or having little energy: not at all 5. Poor appetite or overeating: not at all 6. Feeling bad about yourself - or that you are a failure or have let yourself or your family down: not at all 7. Trouble concentrating on things, such as reading the newspaper or watching television: not at all 8. Moving or speaking so slowly that other people could have noticed. Or the opposite - being so fidgety or restless that you have been moving around a lot more than usual: not at all 9. Thoughts that you would be better off or of hurting yourself in some way: not at all Total score: 0 Depression Screening Interpretation: Negative Depression Screening Done: Yes Source: Developed by Drs. Jeronimo Kenney, Shawna Grier, Floyd Marcelo and colleagues, with an educational yara from [employer]. Thrive Questionnaire Date Thrive assessed: 10/13/23 Are you currently unemployed and looking for a job?: I choose not to answer this question AUDIT C Alcohol Use Questionnaire (AUDIT-C) 1. How often do you have a drink containing alcohol?: Never 3. How often do you have six or more drinks on one occasion?: Never Total Score: 0 Score Reviewed/Action Taken: Yes FRANCHESCA-7 AMB Questionnaire FRANCHESCA-7 Date FRANCHESCA - 7 assessed: 10/13/23 Source: Developed by Drs. Jeronimo Kenney, Shawna Grier, Floyd Marcelo and colleagues, with an educational yara from [employer]. Review of Systems Const Denies chills, Denies headache(s) and Denies weight loss ENT Denies headache(s) Card Denies chest pain, Denies syncope, Denies irregular heart rhythm and Denies dyspnea Resp Denies chest congestion, Denies cough and Denies dyspnea GI Denies abdominal pain, Denies change in stool character, Denies nausea and Denies vomiting Musc Denies deformity and Denies joint swelling Neuro Denies syncope and Denies headache(s) Physical exam (Primary Care) Vital Signs: Last Vital Signs Pulse 67 07/19/24 09:36 BP 114/60 07/19/24 09:36 Pulse Ox 97 07/19/24 09:36 Oxygen Delivery Method Room Air 07/19/24 09:36 BMI result Body Mass Index 21.8 Tobacco/Smoking Status: Tobacco use Status Tobacco use date assessed 10/13/23 07/19/24 09:40 Patient Tobacco Use Status Current everyday Tobacco 07/19/24 09:40 Tobacco use type Cigarette 07/19/24 09:40 e-Cigarette/Vaping Use Never Used 07/19/24 09:40 PHQ-9: PHQ-9 Score PHQ-9: Total score 0 07/19/24 09:40 Depression Screening Interpretation: Negative Thrive Assessment: Date of Thrive Assessment Date Thrive assessed 10/13/23 07/19/24 09:40 Const General: cooperative, comfortable, no acute distress and alert Neck Neck: Yes no lymphadenopathy Thyroid: Thyroid normal Resp Effort & Inspection: normal respiratory effort Auscultation: clear to auscultation bilaterally Percussion: percussion normal Cardio Jugular venous distension: no JVD Palpation: normal PMI Rate: regular rate Rhythm: regular rhythm Heart sounds: S1 normal heart sound present and S2 normal heart sound present GI Inspection: Yes normal to inspection Palpation (GI): No hepatosplenomegaly present Skin General skin exam: no rashes or lesions noted Extrem General: Yes no clubbing, cyanosis or edema Coding Level of Care Code Est Pt Level 3 (23453) Diagnoses Back pain M54.9 Assessment & Plan Assessment & Plan (1) Back pain: Code(s): M54.9 - Dorsalgia, unspecified Category: Medical Plan: stable; same rx Medications: New cephalexin 250 mg PO Q6H 20 caps 0RF Refilled albuterol sulfate 2.5 mg (3 mL) inhalation Q4-6H PRN 90 mL 0RF shortness of breath or wheezing oxycodone Covering for Dr Griffith 10 mg PO Q6H 28 days PRN 112 tabs 0RF pain selenium sulfide 2.5% 1 appl topical DAILY 30 days 120 mL 2RF
[2024-07-19 09:36] VITALS: BP 114/60; PULSE 67; O2SAT 97; BMI 21.8
== END 2024-07-19 09:49 | disposition home or self-care (01) ==
PROVIDERS: PCP Internal Medicine; Visit Provider Internal Medicine
DX: M54.9 Dorsalgia, unspecified (principal)

== ENCOUNTER → 2024-07-19 09:35 | Outpatient (BNVA) | payer OTHER, SELFPAY | PROVIDERS: PCP Internal Medicine; Visit Provider Internal Medicine | DX: M54.9 Dorsalgia, unspecified (principal) | CPT/HCPCS: 96127; 99212 ==

== ENCOUNTER 2024-08-16 09:33 | Outpatient (AMB) | payer OTHER, SELFPAY ==
[2024-08-16 09:40] VITALS: BP 108/64; PULSE 68; O2SAT 98; BMI 22.5
--- NOTE | 2024-08-16 09:40 | MHC.PC.OV ---
Vital Signs 08/16/24 09:40 Height 5 ft 5 in Weight 135 lb BMI 22.5 BP 108/64 Blood Pressure Location Lt brachial Position Sitting Pulse 68 Pulse Source Pulse Oximeter Pulse Oximetry (%) 98 Oxygen Delivery Method Room Air Intake Visit Reasons: Med Management Nursing Education Consultant Required: No Accompanied by: Self / Same As Patient Allergies No Known Allergies Allergy (Unknown, Verified 08/16/24 09:41) Medication List - Last Reconciled 08/16/24 by Santosh Griffith MD albuterol sulfate 90 mcg/actuation (Ventolin HFA) 2 puffs inhalation Q4-6H PRN 30 days albuterol sulfate 90 mcg/actuation 2 puffs inhalation Q4-6H PRN 30 days albuterol sulfate 2.5 mg (3 mL) inhalation Q4-6H PRN cephalexin 250 mg PO Q6H fluticasone propionate 110 mcg/actuation (Flovent HFA) 1 puff inhalation BID ibuprofen 600 mg PO TID nebulizers As directed nicotine 1 patch transdermal DAILY oxycodone 10 mg PO Q6H PRN 28 days selenium sulfide 2.5% 1 appl topical DAILY 30 days Tobacco use date assessed: 10/13/23 Dental Screening Dental Screen Date: 05/24/24 HPI Med Management HPI Details chronic back pain on rx; doing well and compliant with regimen PFSH Medical History Asthma Surgical History H/O tooth extraction History of carpal tunnel release History of D&C History of total cystectomy History of tonsillectomy Family History Father Alive and well Mother Alive and well Maternal Aunt Breast cancer Social History Housing: House Alcohol intake: current Alcohol intake frequency: does not drink Patient Tobacco Use Status: Current everyday Tobacco user Tobacco use type: Cigarette Cigarettes Per Day: 10 e-Cigarette/Vaping Use: Never Used Second Hand Smoke Exposure: Yes service: No Current occupational status: employed Cognitive needs: No Hearing needs: No Vision needs: No Questionnaire Thrive Questionnaire Date Thrive assessed: 10/13/23 Are you currently unemployed and looking for a job?: I choose not to answer this question FRANCHESCA-7 AMB Questionnaire FRANCHESCA-7 Date FRANCHESCA - 7 assessed: 10/13/23 Source: Developed by Drs. Jeronimo Kenney, Shawna Grier, Floyd Marcelo and colleagues, with an educational yara from [employer]. Review of Systems Const Denies chills, Denies headache(s) and Denies weight loss ENT Denies headache(s) Card Denies chest pain, Denies syncope, Denies irregular heart rhythm and Denies dyspnea Resp Denies chest congestion, Denies cough and Denies dyspnea GI Denies abdominal pain, Denies change in stool character, Denies nausea and Denies vomiting Musc Denies deformity and Denies joint swelling Neuro Denies syncope and Denies headache(s) Physical exam (Primary Care) Vital Signs: Last Vital Signs Pulse 68 08/16/24 09:40 BP 108/64 08/16/24 09:40 Pulse Ox 98 08/16/24 09:40 Oxygen Delivery Method Room Air 08/16/24 09:40 BMI result Body Mass Index 22.5 Tobacco/Smoking Status: Tobacco use Status Tobacco use date assessed 10/13/23 08/16/24 09:43 Patient Tobacco Use Status Current everyday Tobacco 08/16/24 09:43 Tobacco use type Cigarette 08/16/24 09:43 e-Cigarette/Vaping Use Never Used 08/16/24 09:43 Thrive Assessment: Date of Thrive Assessment Date Thrive assessed 10/13/23 08/16/24 09:43 Const General: cooperative, comfortable, no acute distress and alert Neck Neck: Yes no lymphadenopathy Thyroid: Thyroid normal Resp Effort & Inspection: normal respiratory effort Auscultation: clear to auscultation bilaterally Percussion: percussion normal Cardio Jugular venous distension: no JVD Palpation: normal PMI Rate: regular rate Rhythm: regular rhythm Heart sounds: S1 normal heart sound present and S2 normal heart sound present GI Inspection: Yes normal to inspection Palpation (GI): No hepatosplenomegaly present Skin General skin exam: no rashes or lesions noted Extrem General: Yes no clubbing, cyanosis or edema Coding Level of Care Code Est Pt Level 3 (60914) Diagnoses Back pain M54.9 Assessment & Plan Assessment & Plan (1) Back pain: Code(s): M54.9 - Dorsalgia, unspecified Category: Medical Plan: stable; same rx Medications: Refilled oxycodone Covering for Dr Griffith 10 mg PO Q6H 28 days PRN 112 tabs 0RF pain
== END 2024-08-16 09:54 | disposition home or self-care (01) ==
PROVIDERS: PCP Internal Medicine; Visit Provider Internal Medicine
DX: Z23 Encounter for immunization (principal); M54.9 Dorsalgia, unspecified

== ENCOUNTER → 2024-08-16 09:33 | Outpatient (BNVA) | payer OTHER, SELFPAY | PROVIDERS: PCP Internal Medicine; Visit Provider Internal Medicine | DX: Z23 Encounter for immunization (principal); M54.9 Dorsalgia, unspecified | CPT/HCPCS: 90471; 90656; 99212 ==

== ENCOUNTER 2024-09-13 09:23 | Outpatient (AMB) | payer OTHER, SELFPAY ==
[2024-09-13 09:26] VITALS: BP 114/70; PULSE 71; O2SAT 96; BMI 22.6
--- NOTE | 2024-09-13 09:26 | A.OFFPC_ITS ---
Vital Signs 09/13/24 09:26 Height 5 ft 5 in Weight 136 lb BMI 22.6 BP 114/70 Blood Pressure Location Lt brachial Position Sitting Pulse 71 Pulse Source Pulse Oximeter Pulse Oximetry (%) 96 Oxygen Delivery Method Room Air Intake Visit Reasons: Med Management Allergies No Known Allergies Allergy (Unknown, Verified 09/13/24 09:26) Medication List - Last Reconciled 09/13/24 by Santosh Griffith MD albuterol sulfate 90 mcg/actuation (Ventolin HFA) 2 puffs inhalation Q4-6H PRN 30 days albuterol sulfate 90 mcg/actuation 2 puffs inhalation Q4-6H PRN 30 days albuterol sulfate 2.5 mg (3 mL) inhalation Q4-6H PRN fluticasone propionate 110 mcg/actuation (Flovent HFA) 1 puff inhalation BID ibuprofen 600 mg PO TID nebulizers As directed nicotine 1 patch transdermal DAILY oxycodone 10 mg PO Q6H PRN 28 days selenium sulfide 2.5% 1 appl topical DAILY 30 days Tobacco use date assessed: 10/13/23 Dental Screening Dental Screen Date: 05/24/24 HPI Med Management HPI Details chronic back pain on rx; compliant with regimen [facility] Medical History Asthma Surgical History H/O tooth extraction History of carpal tunnel release History of D&C History of total cystectomy History of tonsillectomy Family History Father Alive and well Mother Alive and well Maternal Aunt Breast cancer Social History Housing: House Alcohol intake: current Alcohol intake frequency: does not drink Patient Tobacco Use Status: Current everyday Tobacco user Tobacco use type: Cigarette Cigarettes Per Day: 10 e-Cigarette/Vaping Use: Never Used Second Hand Smoke Exposure: Yes service: No Current occupational status: employed Cognitive needs: No Hearing needs: No Vision needs: No Questionnaire PHQ-9 Over the last 2 weeks, how often have you been bothered by any of the following problems? 1. Little interest or pleasure in doing things: not at all 2. Feeling down, depressed, or hopeless: not at all 3. Trouble falling or staying asleep, or sleeping too much: not at all 4. Feeling tired or having little energy: not at all 5. Poor appetite or overeating: not at all 6. Feeling bad about yourself - or that you are a failure or have let yourself or your family down: not at all 7. Trouble concentrating on things, such as reading the newspaper or watching television: not at all 8. Moving or speaking so slowly that other people could have noticed. Or the opposite - being so fidgety or restless that you have been moving around a lot more than usual: not at all 9. Thoughts that you would be better off or of hurting yourself in some way: not at all Total score: 0 Depression Screening Interpretation: Negative Depression Screening Done: Yes Source: Developed by Drs. Jeronimo Kenney, Shawna Grier, Floyd Marcelo and colleagues, with an educational yara from [employer]. Thrive Questionnaire Date Thrive assessed: 10/13/23 Are you currently unemployed and looking for a job?: I choose not to answer this question AUDIT C Alcohol Use Questionnaire (AUDIT-C) 2. How many drinks containing alcohol do you have on a typical day when you are drinking?: 1 or 2 3. How often do you have six or more drinks on one occasion?: Never Total Score: 0 FRANCHESCA-7 AMB Questionnaire FRANCHESCA-7 Date FRANCHESCA - 7 assessed: 10/13/23 Source: Developed by Drs. Jeronimo Kenney, Shawna Grier, Folyd Marcelo and colleagues, with an educational yara from [employer]. Review of Systems Const Denies chills, Denies headache(s) and Denies weight loss ENT Denies headache(s) Card Denies chest pain, Denies syncope, Denies irregular heart rhythm and Denies dyspnea Resp Denies chest congestion, Denies cough and Denies dyspnea GI Denies abdominal pain, Denies change in stool character, Denies nausea and Denies vomiting Musc Denies deformity and Denies joint swelling Neuro Denies syncope and Denies headache(s) Physical exam (Primary Care) Vital Signs: Last Vital Signs Pulse 71 09/13/24 09:26 BP 114/70 09/13/24 09:26 Pulse Ox 96 09/13/24 09:26 Oxygen Delivery Method Room Air 09/13/24 09:26 BMI result Body Mass Index 22.6 Tobacco/Smoking Status: Tobacco use Status Tobacco use date assessed 10/13/23 09/13/24 09:31 Patient Tobacco Use Status Current everyday Tobacco 09/13/24 09:31 Tobacco use type Cigarette 09/13/24 09:31 e-Cigarette/Vaping Use Never Used 09/13/24 09:31 PHQ-9: PHQ-9 Score PHQ-9: Total score 0 09/13/24 09:31 Depression Screening Interpretation: Negative Thrive Assessment: Date of Thrive Assessment Date Thrive assessed 10/13/23 09/13/24 09:31 Const General: cooperative, comfortable, no acute distress and alert Neck Neck: Yes no lymphadenopathy Thyroid: Thyroid normal Resp Effort & Inspection: normal respiratory effort Auscultation: clear to auscultation bilaterally Percussion: percussion normal Cardio Jugular venous distension: no JVD Palpation: normal PMI Rate: regular rate Rhythm: regular rhythm Heart sounds: S1 normal heart sound present and S2 normal heart sound present GI Inspection: Yes normal to inspection Palpation (GI): No hepatosplenomegaly present Skin General skin exam: no rashes or lesions noted Extrem General: Yes no clubbing, cyanosis or edema Coding Level of Care Code Est Pt Level 3 (33911) Diagnoses Back pain M54.9 Assessment & Plan Assessment & Plan (1) Back pain: Code(s): M54.9 - Dorsalgia, unspecified Category: Medical Plan: stable; same rx Medications: New azithromycin take 500 mg today (day 1), then 250 mg for 4 days (days 2-5) PO 6 tabs 0RF Refilled oxycodone Covering for Dr Griffith 10 mg PO Q6H 28 days PRN 112 tabs 0RF pain
== END 2024-09-13 09:37 | disposition home or self-care (01) ==
PROVIDERS: PCP Internal Medicine; Visit Provider Internal Medicine
DX: M54.9 Dorsalgia, unspecified (principal)

== ENCOUNTER → 2024-09-13 09:23 | Outpatient (BNVA) | payer OTHER, SELFPAY | PROVIDERS: PCP Internal Medicine; Visit Provider Internal Medicine | DX: M54.9 Dorsalgia, unspecified (principal) | CPT/HCPCS: 96127; 99212 ==

== ENCOUNTER 2024-10-11 09:28 | Outpatient (AMB) | payer OTHER, SELFPAY ==
[2024-10-11 09:30] VITALS: BP 112/78; PULSE 77; O2SAT 97; BMI 22.9
--- NOTE | 2024-10-11 09:30 | A.OFFPC_ITS ---
Vital Signs 10/11/24 09:30 Height 5 ft 5 in Weight 137 lb 6 oz BMI 22.9 BP 112/78 Blood Pressure Location Lt brachial Position Sitting Pulse 77 Pulse Source Pulse Oximeter Pulse Oximetry (%) 97 Oxygen Delivery Method Room Air Intake Visit Reasons: Med Management Fiscal Services Director Required: No Accompanied by: Self / Same As Patient Allergies No Known Allergies Allergy (Unknown, Verified 10/11/24 09:30) Medication List - Last Reconciled 10/11/24 by Santosh Griffith MD albuterol sulfate 90 mcg/actuation (Ventolin HFA) 2 puffs inhalation Q4-6H PRN 30 days albuterol sulfate 2.5 mg (3 mL) inhalation Q4-6H PRN albuterol sulfate 90 mcg/actuation 2 puffs inhalation Q4-6H PRN 30 days fluticasone propionate 110 mcg/actuation (Flovent HFA) 1 puff inhalation BID ibuprofen 600 mg PO TID nebulizers As directed nicotine 1 patch transdermal DAILY oxycodone 10 mg PO Q6H PRN 28 days selenium sulfide 2.5% 1 appl topical DAILY 30 days Tobacco use date assessed: 10/11/24 Dental Screening Dental Screen Date: 10/11/24 Did you have a dental visit in the last 12 months?: Yes Did you have a dental problem in the last 6 months where you did not have access to dental care?: No Was dental information given to patient?: Patient has dentist HPI Med Management HPI Details chronic back pain on rx; compliant [facility] Medical History Asthma Surgical History H/O tooth extraction History of carpal tunnel release History of D&C History of total cystectomy History of tonsillectomy Family History Father Alive and well Mother Alive and well Maternal Aunt Breast cancer Social History Housing: House Alcohol intake: current Alcohol intake frequency: does not drink Patient Tobacco Use Status: Current everyday Tobacco user Tobacco use type: Cigarette Cigarettes Per Day: 10 e-Cigarette/Vaping Use: Never Used Second Hand Smoke Exposure: Yes service: No Current occupational status: employed Cognitive needs: No Hearing needs: No Vision needs: No Questionnaire PHQ-9 Over the last 2 weeks, how often have you been bothered by any of the following problems? 1. Little interest or pleasure in doing things: several days (very minimal ) 2. Feeling down, depressed, or hopeless: not at all 3. Trouble falling or staying asleep, or sleeping too much: not at all 4. Feeling tired or having little energy: not at all 5. Poor appetite or overeating: not at all 6. Feeling bad about yourself - or that you are a failure or have let yourself or your family down: not at all 7. Trouble concentrating on things, such as reading the newspaper or watching television: not at all 8. Moving or speaking so slowly that other people could have noticed. Or the opposite - being so fidgety or restless that you have been moving around a lot more than usual: not at all 9. Thoughts that you would be better off or of hurting yourself in some way: not at all Total score: 1 Depression Screening Interpretation: Negative Depression Screening Done: Yes Source: Developed by Drs. Jeronimo Kenney, Shawna Grier, Floyd Marcelo and colleagues, with an educational yara from [employer]. Thrive Questionnaire Date Thrive assessed: 10/11/24 I am a: Patient What is your living situation today?: I have a steady place to live Within the past 12 months, did the food you bought not last and you didn't have the money to get more?: Never true Within the past 12 months, did you worry whether your food would run out before you got money to buy more?: Never true Do you have trouble paying for medicines?: No Do you have trouble getting transportation to medical appointments?: No Do you have trouble paying your heating and electricity bill?: No Do you have trouble taking care of your child, family member or friend?: No Do you have trouble with day-to-day activities such as bathing, preparing meals, shopping, managing finances, etc.?: No Are you currently unemployed and looking for a job?: I choose not to answer this question Are you interested in more education?: No Please select the resources that you would like help with: None Currently or been in a relationship where the following occur: No concerns reported THRIVE Score: 0 AUDIT C Alcohol Use Questionnaire (AUDIT-C) 1. How often do you have a drink containing alcohol?: Monthly or less 2. How many drinks containing alcohol do you have on a typical day when you are drinking?: 1 or 2 3. How often do you have six or more drinks on one occasion?: Never Total Score: 1 FRANCHESCA-7 AMB Questionnaire FRANCHESCA-7 Date FRANCHESCA - 7 assessed: 10/11/24 Feeling nervous, anxious, or on edge: 0 = Not at all Not being able to stop or control worryin = Not at all Worrying too much about different things: 0 = Not at all Trouble relaxin = Not at all Being so restless that it is hard to sit still: 0 = Not at all Becoming easily annoyed or irritable: 0 = Not at all Feeling afraid as if something awful might happen: 0 = Not at all Total FRANCHESCA-7 score (0-4 normal; 5-9 mild; 10-14 moderate; 15-21 severe): 0 Source: Developed by Drs. Jeronimo Kenney, Shawna Grier, Floyd Marcelo and colleagues, with an educational yara from [employer]. Review of Systems Const Denies chills, Denies headache(s) and Denies weight loss ENT Denies headache(s) Card Denies chest pain, Denies syncope, Denies irregular heart rhythm and Denies dyspnea Resp Denies chest congestion, Denies cough and Denies dyspnea GI Denies abdominal pain, Denies change in stool character, Denies nausea and Denies vomiting Musc Denies deformity and Denies joint swelling Neuro Denies syncope and Denies headache(s) Physical exam (Primary Care) Vital Signs: Last Vital Signs Pulse 77 10/11/24 09:30 BP 112/78 10/11/24 09:30 Pulse Ox 97 10/11/24 09:30 Oxygen Delivery Method Room Air 10/11/24 09:30 BMI result Body Mass Index 22.9 Tobacco/Smoking Status: Tobacco use Status Tobacco use date assessed 10/11/24 10/11/24 09:35 Patient Tobacco Use Status Current everyday Tobacco 10/11/24 09:35 Tobacco use type Cigarette 10/11/24 09:35 e-Cigarette/Vaping Use Never Used 10/11/24 09:35 PHQ-9: PHQ-9 Score PHQ-9: Total score 1 10/11/24 09:35 Depression Screening Interpretation: Negative Thrive Assessment: Date of Thrive Assessment Date Thrive assessed 10/11/24 10/11/24 09:35 Currently or been in a relationship where the following occur: No concerns reported Const General: cooperative, comfortable, no acute distress and alert Neck Neck: Yes no lymphadenopathy Thyroid: Thyroid normal Resp Effort & Inspection: normal respiratory effort Auscultation: clear to auscultation bilaterally Percussion: percussion normal Cardio Jugular venous distension: no JVD Palpation: normal PMI Rate: regular rate Rhythm: regular rhythm Heart sounds: S1 normal heart sound present and S2 normal heart sound present GI Inspection: Yes normal to inspection Palpation (GI): No hepatosplenomegaly present Skin General skin exam: no rashes or lesions noted Extrem General: Yes no clubbing, cyanosis or edema Coding Level of Care Code Est Pt Level 3 (20134) Diagnoses Back pain M54.9 Assessment & Plan Assessment & Plan (1) Back pain: Code(s): M54.9 - Dorsalgia, unspecified Category: Medical Plan: stable; same rx Medications: Refilled oxycodone Covering for Dr Griffith 10 mg PO Q6H 28 days PRN 112 tabs 0RF pain
== END 2024-10-11 09:40 | disposition home or self-care (01) ==
PROVIDERS: PCP Internal Medicine; Visit Provider Internal Medicine
DX: M54.9 Dorsalgia, unspecified (principal)

== ENCOUNTER → 2024-10-11 09:28 | Outpatient (BNVA) | payer OTHER, SELFPAY | PROVIDERS: PCP Internal Medicine; Visit Provider Internal Medicine | DX: M54.9 Dorsalgia, unspecified (principal); F17.210 Nicotine dependence, cigarettes, uncomplicated; Z79.891 Long term (current) use of opiate analgesic | CPT/HCPCS: 96127; 99212 ==

== ENCOUNTER 2024-12-06 11:02 | Outpatient (AMB) | payer OTHER, SELFPAY ==
--- NOTE | 2024-12-06 11:13 | A.OFFPC_ITS ---
Vital Signs 12/06/24 11:15 Height 5 ft 5 in Weight 136 lb 6 oz BMI 22.7 BP 140/76 H Blood Pressure Location Lt brachial Position Sitting Pulse 81 Pulse Source Pulse Oximeter Temp 97.3 F Temp Source Temporal Artery Scan Pulse Oximetry (%) 97 Oxygen Delivery Method Room Air Intake Visit Reasons: med management Intake Note: Patient is here to follow up on med management. 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 per policy Accompanied by: Self / Same As Patient Allergies No Known Allergies Allergy (Unknown, Verified 12/06/24 11:14) Medication List - Last Reconciled 12/06/24 by Santosh Griffith MD albuterol sulfate 90 mcg/actuation (Ventolin HFA) 2 puffs inhalation Q4-6H PRN 30 days albuterol sulfate 90 mcg/actuation 2 puffs inhalation Q4-6H PRN 30 days albuterol sulfate 2.5 mg (3 mL) inhalation Q4-6H PRN ibuprofen 600 mg PO TID nebulizers As directed nicotine 1 patch transdermal DAILY oxycodone 10 mg PO Q6H PRN 28 days selenium sulfide 2.5% 1 appl topical DAILY 30 days Tobacco use date assessed: 12/06/24 Dental Screening Dental Screen Date: 10/11/24 HPI med management HPI Details chronic back pain on rx; compliant with regimen PFSH Medical History Asthma Surgical History H/O tooth extraction History of carpal tunnel release History of D&C History of total cystectomy History of tonsillectomy Family History Father Alive and well Mother Alive and well Maternal Aunt Breast cancer Social History Housing: House Alcohol intake: current Alcohol intake frequency: does not drink Patient Tobacco Use Status: Current everyday Tobacco user Tobacco use type: Cigarette Cigarette Packs Per Day: 0.5 Cigarettes Per Day: 10 e-Cigarette/Vaping Use: Never Used Second Hand Smoke Exposure: Yes service: No Current occupational status: employed Cognitive needs: No Hearing needs: No Vision needs: No Questionnaire Thrive Questionnaire Date Thrive assessed: 10/11/24 FRANCHESCA-7 AMB Questionnaire FRANCHESCA-7 Date FRANCHESCA - 7 assessed: 10/11/24 Source: Developed by Drs. Jeronimo Kenney, Shawna Grier, Floyd Marcelo and colleagues, with an educational yara from [employer]. Review of Systems Const Denies chills, Denies headache(s) and Denies weight loss ENT Denies headache(s) Card Denies chest pain, Denies syncope, Denies irregular heart rhythm and Denies dyspnea Resp Denies chest congestion, Denies cough and Denies dyspnea GI Denies abdominal pain, Denies change in stool character, Denies nausea and Denies vomiting Musc Denies deformity and Denies joint swelling Neuro Denies syncope and Denies headache(s) Physical exam (Primary Care) Vital Signs: Last Vital Signs Temp 97.3 F 12/06/24 11:15 Pulse 81 12/06/24 11:15 BP 140/76 H 12/06/24 11:15 Pulse Ox 97 12/06/24 11:15 Oxygen Delivery Method Room Air 12/06/24 11:15 BMI result Body Mass Index 22.7 Tobacco/Smoking Status: Tobacco use Status Tobacco use date assessed 12/06/24 12/06/24 11:18 Patient Tobacco Use Status Current everyday Tobacco 12/06/24 11:18 Tobacco use type Cigarette 12/06/24 11:18 e-Cigarette/Vaping Use Never Used 12/06/24 11:18 Thrive Assessment: Date of Thrive Assessment Date Thrive assessed 10/11/24 12/06/24 11:18 Const General: cooperative, comfortable, no acute distress and alert Neck Neck: Yes no lymphadenopathy Thyroid: Thyroid normal Resp Effort & Inspection: normal respiratory effort Auscultation: clear to auscultation bilaterally Percussion: percussion normal Cardio Jugular venous distension: no JVD Palpation: normal PMI Rate: regular rate Rhythm: regular rhythm Heart sounds: S1 normal heart sound present and S2 normal heart sound present GI Inspection: Yes normal to inspection Palpation (GI): No hepatosplenomegaly present Skin General skin exam: no rashes or lesions noted Extrem General: Yes no clubbing, cyanosis or edema Coding Level of Care Code Est Pt Level 3 (02062) Diagnoses Back pain M54.9 Assessment & Plan Assessment & Plan (1) Back pain: Code(s): M54.9 - Dorsalgia, unspecified Category: Medical Plan: stable; same rx Medications: Refilled albuterol sulfate 2.5 mg (3 mL) inhalation Q4-6H PRN 90 mL 0RF shortness of breath or wheezing oxycodone Covering for Dr Griffith 10 mg PO Q6H 28 days PRN 112 tabs 0RF pain
[2024-12-06 11:15] VITALS: BP 140/76; PULSE 81; TEMP 36.3; O2SAT 97; BMI 22.7
== END 2024-12-06 11:31 | disposition home or self-care (01) ==
PROVIDERS: PCP Internal Medicine; Visit Provider Internal Medicine
DX: M54.9 Dorsalgia, unspecified (principal)

== ENCOUNTER → 2024-12-06 11:02 | Outpatient (BNVA) | payer OTHER, SELFPAY | PROVIDERS: PCP Internal Medicine; Visit Provider Internal Medicine | DX: M54.9 Dorsalgia, unspecified (principal) | CPT/HCPCS: 99212 ==

== ENCOUNTER 2025-01-04 11:47 | Outpatient (AMB) | payer OTHER, SELFPAY ==
[2025-01-04 11:52] VITALS: BP 122/80; PULSE 70; O2SAT 98; BMI 22.9
--- NOTE | 2025-01-04 11:52 | MHC.PC.OV ---
Vital Signs 01/04/25 11:52 Height 5 ft 5 in Weight 137 lb 6 oz BMI 22.9 BP 122/80 Blood Pressure Location Lt brachial Position Sitting Pulse 70 Pulse Source Pulse Oximeter Pulse Oximetry (%) 98 Oxygen Delivery Method Room Air Intake Visit Reasons: KELLY Dr Griffith Physician Gynecologist Required: No Accompanied by: Self / Same As Patient Allergies No Known Allergies Allergy (Unknown, Verified 01/04/25 12:13) Medication List - Last Reconciled 01/04/25 by Louis Thurston MD albuterol sulfate 90 mcg/actuation 2 puffs inhalation Q4-6H PRN 30 days albuterol sulfate 2.5 mg (3 mL) inhalation Q4-6H PRN ibuprofen 600 mg PO TID nebulizers As directed nicotine 1 patch transdermal DAILY oxycodone 10 mg PO Q6H PRN 28 days selenium sulfide 2.5% 1 appl topical DAILY 30 days Tobacco use date assessed: 01/04/25 Dental Screening Dental Screen Date: 01/04/25 Did you have a dental visit in the last 12 months?: Yes Did you have a dental problem in the last 6 months where you did not have access to dental care?: No Was dental information given to patient?: Patient has dentist HPI KELLY Dr Griffith HPI Details Patient comes in today for her follow-up visit - is transferring care over from Dr. Griffith, who retired from the practice a couple of weeks ago States that she has been on chronic pain medication with Dr. Griffith for years for her chronic back pain and mainly needs her prescription refilled today States that in all the years that she has been on her pain medications, she has never once taken it inappropriately or requested for early prescription refills, and that the pain medications are working well enough to allow her to be able to function during today States that she has also been experiencing frequent allergy symptoms lately, including runny nose, eye itching and recurrent sneezing as well as on and off clear nasal discharge She denies any headaches or dizziness; denies any sore throat Denies any chest pains, no increased shortness of breath No nausea/vomiting, no abdominal pain No change in bowel habits noted PFSH Medical History (Updated 01/05/25 @ 04:03 by Louis Thurston MD) Smoker Allergic rhinitis Lumbar degenerative disc disease Asthma Surgical History H/O tooth extraction History of carpal tunnel release History of D&C History of total cystectomy History of tonsillectomy Family History Father Alive and well Mother Alive and well Maternal Aunt Breast cancer Social History Housing: House Alcohol intake: current Alcohol intake frequency: does not drink Patient Tobacco Use Status: Current everyday Tobacco user Tobacco use type: Cigarette Cigarette Packs Per Day: 0.5 Cigarettes Per Day: 10 e-Cigarette/Vaping Use: Never Used Second Hand Smoke Exposure: Yes service: No Current occupational status: employed Cognitive needs: No Hearing needs: No Vision needs: No Questionnaire PHQ-9 Over the last 2 weeks, how often have you been bothered by any of the following problems? 1. Little interest or pleasure in doing things: several days (very minimal ) 2. Feeling down, depressed, or hopeless: not at all 3. Trouble falling or staying asleep, or sleeping too much: not at all 4. Feeling tired or having little energy: not at all 5. Poor appetite or overeating: not at all 6. Feeling bad about yourself - or that you are a failure or have let yourself or your family down: not at all 7. Trouble concentrating on things, such as reading the newspaper or watching television: not at all 8. Moving or speaking so slowly that other people could have noticed. Or the opposite - being so fidgety or restless that you have been moving around a lot more than usual: not at all 9. Thoughts that you would be better off or of hurting yourself in some way: not at all Total score: 1 Depression Screening Interpretation: Negative Depression Screening Done: Yes 30684 - PHQ-9 Billing: Yes Source: Developed by Drs. Jeronimo Kenney, Shawna Grier, Floyd Marcelo and colleagues, with an educational yara from [employer]. Thrive Questionnaire Date Thrive assessed: 01/04/25 I am a: Patient What is your living situation today?: I have a steady place to live Within the past 12 months, did the food you bought not last and you didn't have the money to get more?: Never true Within the past 12 months, did you worry whether your food would run out before you got money to buy more?: Never true Do you have trouble paying for medicines?: No Do you have trouble getting transportation to medical appointments?: No Do you have trouble paying your heating and electricity bill?: No Do you have trouble taking care of your child, family member or friend?: No Do you have trouble with day-to-day activities such as bathing, preparing meals, shopping, managing finances, etc.?: No Are you currently unemployed and looking for a job?: No Are you interested in more education?: No Please select the resources that you would like help with: None Currently or been in a relationship where the following occur: No concerns reported THRIVE Score: 0 AUDIT C Alcohol Use Questionnaire (AUDIT-C) 1. How often do you have a drink containing alcohol?: Monthly or less 2. How many drinks containing alcohol do you have on a typical day when you are drinking?: 1 or 2 3. How often do you have six or more drinks on one occasion?: Never Total Score: 1 Score Reviewed/Action Taken: Yes FRANCHESCA-7 AMB Questionnaire FRANCHESCA-7 Date FRANCHESCA - 7 assessed: 01/04/25 Feeling nervous, anxious, or on edge: 0 = Not at all Not being able to stop or control worryin = Not at all Worrying too much about different things: 0 = Not at all Trouble relaxin = Not at all Being so restless that it is hard to sit still: 0 = Not at all Becoming easily annoyed or irritable: 0 = Not at all Feeling afraid as if something awful might happen: 0 = Not at all Total FRANCHESCA-7 score (0-4 normal; 5-9 mild; 10-14 moderate; 15-21 severe): 0 Source: Developed by Drs. Jeronimo Kenney, Shawna Grier, Floyd Marcelo and colleagues, with an educational yara from [employer]. Review of Systems Const Denies chills, Denies fatigue, Denies fever(s) and Denies headache(s) Eyes Reports itchy eyes ENT Denies dysphagia, Denies dizziness, Denies otalgia, Denies headache(s), Reports nasal discharge (clear, on and off lately), Denies neck pain, Denies odynophagia and Denies sore throat Card Denies chest pain, Denies palpitations and Denies dyspnea Resp Reports chest congestion (at times, mild), Reports cough (on and off lately), Denies dyspnea and Denies wheezing GI Denies abdominal pain, Denies constipation, Denies dysphagia, Denies heartburn, Denies diarrhea, Denies nausea, Denies odynophagia and Denies vomiting Denies difficulty voiding, Denies nocturia and Denies dysuria Musc Reports back pain (over the lower back - chronic) and Denies neck pain Skin/Breast Denies rash Neuro Denies dizziness and Denies headache(s) Endo Denies fatigue and Denies palpitations Aller/Immun Reports itchy eyes, Reports seasonal rhinorrhea and Denies wheezing Physical exam (Primary Care) Vital Signs: Last Vital Signs Pulse 70 01/04/25 11:52 BP 122/80 01/04/25 11:52 Pulse Ox 98 01/04/25 11:52 Oxygen Delivery Method Room Air 01/04/25 11:52 BMI result Body Mass Index 22.9 Tobacco/Smoking Status: Tobacco use Status Tobacco use date assessed 01/04/25 01/04/25 12:00 Patient Tobacco Use Status Current everyday Tobacco 01/04/25 12:00 Tobacco use type Cigarette 01/04/25 12:00 e-Cigarette/Vaping Use Never Used 01/04/25 12:00 PHQ-9: PHQ-9 Score PHQ-9: Total score 1 01/04/25 12:56 Depression Screening Interpretation: Negative Thrive Assessment: Date of Thrive Assessment Date Thrive assessed 01/04/25 01/04/25 12:00 Currently or been in a relationship where the following occur: No concerns reported Const General: no acute distress and alert HENMT Ears: TM's normal bilaterally and EAC's normal Throat: Yes posterior oropharynx normal and Yes tonsils normal (no TP congestion) Neck Neck: Yes supple and No lymphadenopathy Resp Auscultation: clear to auscultation bilaterally, no rales, rhonchi (scattered bilaterally) and wheezes (occasional, faint) Cardio Rate: regular rate Rhythm: regular rhythm Heart sounds: no murmurs GI Palpation (GI): Soft to palpation and nontender Auscultation: normal bowel sounds General: Yes no CVA tenderness Back/Spine/Pelvis Back: no CVA tenderness Thoracic/Lumbar Spine: lumbar spinal tenderness Skin Rashes: no rashes Extrem General: Yes no clubbing, cyanosis or edema Coding Level of Care Code Est Pt Level 4 (79664) Diagnoses Mild persistent asthma without complication J45.30 Asthma severity: mild Asthma persistence: persistent Asthma complication type: uncomplicated Degeneration of intervertebral disc of lumbar region with discogenic back pain M51.360 Disc-related pain type: discogenic back pain only Seasonal allergic rhinitis, unspecified trigger J30.2 Allergic rhinitis trigger: unspecified Allergic rhinitis seasonality: seasonal Smoker F17.200 Additional Codes PHQ-9 - 08533 - PHQ-9 Billing: Yes ([id number]) Assessment & Plan Assessment & Plan (1) Asthma: Code(s): J45.909 - Unspecified asthma, uncomplicated Category: Medical Qualifiers: Asthma severity: mild Asthma persistence: persistent Asthma complication type: uncomplicated Qualified Code(s): J45.30 - Mild persistent asthma, uncomplicated Plan: Patient states that her asthma is normally well controlled and she hardly has to use her rescue inhaler but lately, she has been experiencing recurrent chest congestion and coughing - thinks that this is likely due to her spring allergies triggering her asthma flare-ups Continue Albuterol HFA 1 to 2 inhalations QID PRN for now but advised that if her asthma continues to flare up often, we may need to start her on some additional Rx or inhalers to get her asthma back under control (2) Lumbar degenerative disc disease: Comment: chronic Code(s): M51.369 - Other intervertebral disc degeneration, lumbar region without mention of lumbar back pain or lower extremity pain Category: Medical Qualifiers: Disc-related pain type: discogenic back pain only Qualified Code(s): M51.360 - Other intervertebral disc degeneration, lumbar region with discogenic back pain only Plan: Reinforced activity and weightlifting restrictions to avoid aggravating her low back pain Continue Oxycodone 10 mg Q 6 hours PRN for now - Rx refilled Have advised patient that at her next visit, we will likely need to have her renew her pain management agreement and we will also require her to get some random drug screening sometime later this year to keep us in compliance (3) Allergic rhinitis: Code(s): J30.9 - Allergic rhinitis, unspecified Category: Medical Qualifiers: Allergic rhinitis trigger: unspecified Allergic rhinitis seasonality: seasonal Qualified Code(s): J30.2 - Other seasonal allergic rhinitis Plan: Will start patient for now on Cetirizine 10 mg QD PRN Have advised her to at least take this every day during the spring season hopefully, if we can control her allergies, this would also help minimize her asthma flaring up (4) Smoker: Code(s): F17.200 - Nicotine dependence, unspecified, uncomplicated Category: Social Hx Plan: Patient is counseled on complete smoking cessation Plan Follow up in 1 month Medications: New cetirizine 10 mg PO DAILY 90 days PRN 90 tabs 3RF allergy symptoms Refilled oxycodone Covering for Dr Griffith 10 mg PO Q6H 28 days PRN 112 tabs 0RF pain
== END 2025-01-04 13:04 | disposition home or self-care (01) ==
LOC: HO.HMCH 11:48
PROVIDERS: PCP Internal Medicine; Visit Provider Internal Medicine
DX: J45.30 Mild persistent asthma, uncomplicated (principal); M51.360 Other intervertebral disc degeneration, lumbar region with discogenic back pain only; J30.2 Other seasonal allergic rhinitis; F17.200 Nicotine dependence, unspecified, uncomplicated

== ENCOUNTER → 2025-01-04 11:47 | Outpatient (BNVA) | payer OTHER, SELFPAY | PROVIDERS: PCP Internal Medicine; Visit Provider Internal Medicine | DX: J45.30 Mild persistent asthma, uncomplicated (principal); M51.360 Other intervertebral disc degeneration, lumbar region with discogenic back pain only; J30.2 Other seasonal allergic rhinitis; F17.210 Nicotine dependence, cigarettes, uncomplicated | CPT/HCPCS: 96127; 99212 ==

== ENCOUNTER 2025-01-30 11:00 | Outpatient (AMB) | payer OTHER, SELFPAY ==
[2025-01-30 11:02] VITALS: BP 110/74; PULSE 78; O2SAT 98; BMI 23.0
--- NOTE | 2025-01-30 11:02 | A.OFFPC_ITS ---
Vital Signs 01/30/25 11:02 Height 5 ft 5 in Weight 138 lb 6 oz BMI 23.0 BP 110/74 Blood Pressure Location Lt brachial Position Sitting Pulse 78 Pulse Source Pulse Oximeter Pulse Oximetry (%) 98 Oxygen Delivery Method Room Air Intake Visit Reasons: med f/u It Application Development Manager Required: No Accompanied by: Self / Same As Patient Allergies No Known Allergies Allergy (Unknown, Verified 01/30/25 11:42) Medication List - Last Reconciled 01/30/25 by Louis Thurston MD albuterol sulfate 90 mcg/actuation 2 puffs inhalation Q4-6H PRN 30 days albuterol sulfate 2.5 mg (3 mL) inhalation Q4-6H PRN cetirizine 10 mg PO DAILY PRN 90 days ibuprofen 600 mg PO TID nebulizers As directed nicotine 1 patch transdermal DAILY oxycodone 10 mg PO Q6H PRN 28 days selenium sulfide 2.5% 1 appl topical DAILY 30 days Tobacco use date assessed: 01/30/25 Dental Screening Dental Screen Date: 01/30/25 Did you have a dental visit in the last 12 months?: Yes Did you have a dental problem in the last 6 months where you did not have access to dental care?: No Was dental information given to patient?: Patient has dentist HPI med f/u HPI Details Patient comes in today for her follow-up visit for her chronic back pain States that her pain remains adequately controlled on her current meds and needs her pain prescription refilled today She also continues to experience frequent allergy symptoms which appear to be causing her asthma to flare up often although she feels that her asthma symptoms are starting to settle down She continues to use her Albuterol inhaler often and will need that as well as her Albuterol nebulizer solution refilled today as well She denies any fever or sore throat; denies any headaches or dizziness Denies any chest pains; notes that her chest often feels congested lately - states that her symptoms are promptly relieved when she uses her Albuterol inhaler No nausea/vomiting, no abdominal pain No change in bowel habits noted [facility] Medical History (Updated 01/30/25 @ 11:49 by Louis Thurston MD) Smoker Allergic rhinitis Lumbar degenerative disc disease Asthma Surgical History H/O tooth extraction History of carpal tunnel release History of D&C History of total cystectomy History of tonsillectomy Family History Father Alive and well Mother Alive and well Maternal Aunt Breast cancer Social History Housing: House Alcohol intake: current Alcohol intake frequency: does not drink Patient Tobacco Use Status: Current everyday Tobacco user Tobacco use type: Cigarette Cigarette Packs Per Day: 0.5 Cigarettes Per Day: 10 e-Cigarette/Vaping Use: Never Used Second Hand Smoke Exposure: Yes service: No Current occupational status: employed Cognitive needs: No Hearing needs: No Vision needs: No Questionnaire PHQ-9 Over the last 2 weeks, how often have you been bothered by any of the following problems? 1. Little interest or pleasure in doing things: several days (very minimal ) 2. Feeling down, depressed, or hopeless: not at all 3. Trouble falling or staying asleep, or sleeping too much: not at all 4. Feeling tired or having little energy: not at all 5. Poor appetite or overeating: not at all 6. Feeling bad about yourself - or that you are a failure or have let yourself or your family down: not at all 7. Trouble concentrating on things, such as reading the newspaper or watching television: not at all 8. Moving or speaking so slowly that other people could have noticed. Or the opposite - being so fidgety or restless that you have been moving around a lot more than usual: not at all 9. Thoughts that you would be better off or of hurting yourself in some way: not at all Total score: 1 Depression Screening Interpretation: Negative Depression Screening Done: Yes 35271 - PHQ-9 Billing: Yes Source: Developed by Drs. Jeronimo Kenney, Shawna Grier, Floyd Marcelo and colleagues, with an educational yara from [employer]. Thrive Questionnaire Date Thrive assessed: 01/30/25 I am a: Patient What is your living situation today?: I have a steady place to live Within the past 12 months, did the food you bought not last and you didn't have the money to get more?: Never true Within the past 12 months, did you worry whether your food would run out before you got money to buy more?: Never true Do you have trouble paying for medicines?: No Do you have trouble getting transportation to medical appointments?: No Do you have trouble paying your heating and electricity bill?: No Do you have trouble taking care of your child, family member or friend?: No Do you have trouble with day-to-day activities such as bathing, preparing meals, shopping, managing finances, etc.?: No Are you currently unemployed and looking for a job?: No Are you interested in more education?: No Please select the resources that you would like help with: None Currently or been in a relationship where the following occur: No concerns reported THRIVE Score: 0 AUDIT C Alcohol Use Questionnaire (AUDIT-C) 1. How often do you have a drink containing alcohol?: Monthly or less 2. How many drinks containing alcohol do you have on a typical day when you are drinking?: 1 or 2 3. How often do you have six or more drinks on one occasion?: Never Total Score: 1 Score Reviewed/Action Taken: Yes FRANCHESCA-7 AMB Questionnaire FRANCHESCA-7 Date FRANCHESCA - 7 assessed: 01/30/25 Feeling nervous, anxious, or on edge: 0 = Not at all Not being able to stop or control worryin = Not at all Worrying too much about different things: 0 = Not at all Trouble relaxin = Not at all Being so restless that it is hard to sit still: 0 = Not at all Becoming easily annoyed or irritable: 0 = Not at all Feeling afraid as if something awful might happen: 0 = Not at all Total FRANCHESCA-7 score (0-4 normal; 5-9 mild; 10-14 moderate; 15-21 severe): 0 Source: Developed by Drs. Jeronimo Kenney, Shawna Grier, Floyd Marcelo and colleagues, with an educational yara from [employer]. Review of Systems Const Denies chills, Denies fatigue, Denies fever(s) and Denies headache(s) Eyes Reports itchy eyes ENT Denies dysphagia, Denies dizziness, Denies otalgia, Denies headache(s), Denies nasal congestion, Denies neck pain, Denies odynophagia and Denies sore throat Card Denies chest pain, Denies palpitations and Denies dyspnea Resp Reports chest congestion (at times, mild), Reports cough (on and off ), Denies dyspnea and Denies wheezing GI Denies abdominal pain, Denies constipation, Denies dysphagia, Denies heartburn, Denies diarrhea, Denies nausea, Denies odynophagia and Denies vomiting Denies difficulty voiding, Denies nocturia, Denies dysuria and Denies urinary urgency Musc Reports back pain (over the lower back - chronic) and Denies neck pain Skin/Breast Denies rash Neuro Denies dizziness and Denies headache(s) Endo Denies fatigue and Denies palpitations Aller/Immun Reports itchy eyes, Reports seasonal rhinorrhea and Denies wheezing Physical exam (Primary Care) Vital Signs: Last Vital Signs Pulse 78 01/30/25 11:02 BP 110/74 01/30/25 11:02 Pulse Ox 98 01/30/25 11:02 Oxygen Delivery Method Room Air 01/30/25 11:02 BMI result Body Mass Index 23.0 Tobacco/Smoking Status: Tobacco use Status Tobacco use date assessed 01/30/25 01/30/25 11:05 Patient Tobacco Use Status Current everyday Tobacco 01/30/25 11:05 Tobacco use type Cigarette 01/30/25 11:05 e-Cigarette/Vaping Use Never Used 01/30/25 11:05 PHQ-9: PHQ-9 Score PHQ-9: Total score 1 01/30/25 11:05 Depression Screening Interpretation: Negative Thrive Assessment: Date of Thrive Assessment Date Thrive assessed 01/30/25 01/30/25 11:05 Currently or been in a relationship where the following occur: No concerns reported Const General: no acute distress and alert HENMT Ears: TM's normal bilaterally and EAC's normal Throat: Yes posterior oropharynx normal and Yes tonsils normal (no TP congestion) Neck Neck: Yes supple and No lymphadenopathy Thyroid: Thyroid normal Resp Auscultation: no crackles, no rales, rhonchi (scattered bilaterally) and no wheezes Cardio Rate: regular rate Rhythm: regular rhythm Heart sounds: no murmurs GI Palpation (GI): Soft to palpation and nontender Auscultation: normal bowel sounds General: Yes no CVA tenderness Back/Spine/Pelvis Back: no CVA tenderness Thoracic/Lumbar Spine: lumbar spinal tenderness Skin Rashes: no rashes Extrem General: Yes no clubbing, cyanosis or edema Coding Level of Care Code Est Pt Level 4 (11001) Diagnoses Mild persistent asthma without complication J45.30 Asthma severity: mild Asthma persistence: persistent Asthma complication type: uncomplicated Degeneration of intervertebral disc of lumbar region with discogenic back pain M51.360 Disc-related pain type: discogenic back pain only Seasonal allergic rhinitis, unspecified trigger J30.2 Allergic rhinitis trigger: unspecified Allergic rhinitis seasonality: seasonal Smoker F17.200 Additional Codes PHQ-9 - 02976 - PHQ-9 Billing: Yes ([id number]) Assessment & Plan Assessment & Plan (1) Asthma: Code(s): J45.909 - Unspecified asthma, uncomplicated Category: Medical Qualifiers: Asthma severity: mild Asthma persistence: persistent Asthma complication type: uncomplicated Qualified Code(s): J45.30 - Mild persistent asthma, uncomplicated Plan: She currently still appears to be experiencing frequent flare ups/exacerbations of her asthma, likely due to her spring allergies, although patient feels that they are starting to get better Continue Albuterol HFA 1 to 2 inhalations QID PRN for now but she is again advised that if her asthma continues to flare up often, we may need to start her on some additional Rx or (maintenance) inhalers next month to try to get her asthma back under control (2) Lumbar degenerative disc disease: Comment: chronic Code(s): M51.369 - Other intervertebral disc degeneration, lumbar region without mention of lumbar back pain or lower extremity pain Category: Medical Qualifiers: Disc-related pain type: discogenic back pain only Qualified Code(s): M51.360 - Other intervertebral disc degeneration, lumbar region with discogenic back pain only Plan: Reinforced activity and weight-lifting restrictions to avoid aggravating her low back pain Continue Oxycodone 10 mg Q 6 hours PRN for now - Rx refilled We had patient renew her pain management agreement today; is also advised that we will require her to get random drug screening done - will likely have her do this at one of her upcoming appointments over the next few months (3) Allergic rhinitis: Code(s): J30.9 - Allergic rhinitis, unspecified Category: Medical Qualifiers: Allergic rhinitis trigger: unspecified Allergic rhinitis seasonality: seasonal Qualified Code(s): J30.2 - Other seasonal allergic rhinitis Plan: Continue Cetirizine 10 mg QD PRN (4) Smoker: Code(s): F17.200 - Nicotine dependence, unspecified, uncomplicated Category: Social Hx Plan: Patient is counseled again on complete smoking cessation Plan To return as scheduled next month - will have office change her appt to an annual physical exam Patient is advised to get her yearly labs done (ordered) just before she comes back for her appointment next month Orders: Orders Lipid Panel 02/17/25 E78.00 - Pure hypercholesterolemia, unspecified, Z00.00 - Encounter for general adult medical examination without abnormal findings TSH reflex Free T4 02/17/25 E78.00 - Pure hypercholesterolemia, unspecified, Z00.00 - Encounter for general adult medical examination without abnormal findings UA CC w/rflx Micro + Cult 02/17/25 R30.0 - Dysuria, Z00.00 - Encounter for general adult medical examination without abnormal findings Complete Blood Count Auto Diff 02/17/25 D64.9 - Anemia, unspecified, Z00.00 - Encounter for general adult medical examination without abnormal findings Comprehensive [place]. Panel Fast 02/17/25 E78.00 - Pure hypercholesterolemia, unspecified, Z00.00 - Encounter for general adult medical examination without abnormal findings Vitamin D 25-OH Total 02/17/25 E55.9 - Vitamin D deficiency, unspecified, Z00.00 - Encounter for general adult medical examination without abnormal findings Medications: Refilled albuterol sulfate 90 mcg/actuation 2 puffs inhalation Q4-6H 30 days PRN 8.5 grams 5RF shortness of breath or wheezing albuterol sulfate 2.5 mg (3 mL) inhalation Q4-6H PRN 90 mL 0RF shortness of breath or wheezing oxycodone Covering for Dr Griffith 10 mg PO Q6H 28 days PRN 112 tabs 0RF pain
== END 2025-01-30 11:58 | disposition home or self-care (01) ==
LOC: HO.HMCH 11:01
PROVIDERS: PCP Internal Medicine; Visit Provider Internal Medicine
DX: J45.30 Mild persistent asthma, uncomplicated (principal); M51.360 Other intervertebral disc degeneration, lumbar region with discogenic back pain only; J30.2 Other seasonal allergic rhinitis; F17.200 Nicotine dependence, unspecified, uncomplicated

== ENCOUNTER → 2025-01-30 11:00 | Outpatient (BNVA) | payer OTHER, SELFPAY | PROVIDERS: PCP Internal Medicine; Visit Provider Internal Medicine | DX: J45.30 Mild persistent asthma, uncomplicated (principal); M51.360 Other intervertebral disc degeneration, lumbar region with discogenic back pain only; J30.2 Other seasonal allergic rhinitis; F17.210 Nicotine dependence, cigarettes, uncomplicated; Z79.891 Long term (current) use of opiate analgesic; Z79.899 Other long term (current) drug therapy | CPT/HCPCS: 96127; 99212 ==

== ENCOUNTER 2025-02-28 13:26 | Outpatient (AMB) | payer OTHER, SELFPAY ==
[2025-02-28 13:35] VITALS: BP 118/80; PULSE 75; O2SAT 98; BMI 22.9
--- NOTE | 2025-02-28 13:35 | MHC.PC.OV ---
Vital Signs 02/28/25 13:35 Height 5 ft 5 in Weight 137 lb 8 oz BMI 22.9 BP 118/80 Blood Pressure Location Lt brachial Position Sitting Pulse 75 Pulse Source Pulse Oximeter Pulse Oximetry (%) 98 Oxygen Delivery Method Room Air Intake Visit Reasons: med f/u/ Annual Exam Application Trainer Required: No Accompanied by: Self / Same As Patient Allergies No Known Allergies Allergy (Unknown, Verified 02/28/25 13:47) Medication List - Last Reconciled 02/28/25 by Louis Thurston MD albuterol sulfate 90 mcg/actuation 2 puffs inhalation Q4-6H PRN 30 days albuterol sulfate 2.5 mg (3 mL) inhalation Q4-6H PRN cetirizine 10 mg PO DAILY PRN 90 days ibuprofen 600 mg PO TID nebulizers As directed nicotine 1 patch transdermal DAILY oxycodone 10 mg PO Q6H PRN 28 days selenium sulfide 2.5% 1 appl topical DAILY 30 days Tobacco use date assessed: 02/28/25 Dental Screening Dental Screen Date: 02/28/25 Did you have a dental visit in the last 12 months?: Yes Did you have a dental problem in the last 6 months where you did not have access to dental care?: No Was dental information given to patient?: Patient has dentist HPI med f/u/ Annual Exam HPI Details Patient comes in today for her annual physical examination States that she feels okay She denies any headaches or dizziness Denies any chest pains, no increased shortness of breath - states that her asthma is now under better control No nausea/vomiting, no abdominal pain No change in bowel habits noted She denies any acute urinary symptoms States that her chronic low back pain remains adequately controlled on her current Rx - will need her pain med Rx refilled today Adds that she has a cyst on the lateral side of her left knee for a while now and notes that she feels increased pain in her knee when the cyst swells up She was not able to get her follow up labs done prior to her visit today - states that she will go and get these done DWAINE Patient states that she is now due for all of her cancer screenings [facility] Medical History (Updated 03/05/25 @ 00:48 by Louis Thurston MD) Smoker Allergic rhinitis Lumbar degenerative disc disease Asthma Surgical History (Updated 02/28/25 @ 13:53 by Louis Thurston MD) History of colonoscopy H/O tooth extraction History of carpal tunnel release History of D&C History of total cystectomy History of tonsillectomy Family History Father Alive and well Mother Alive and well Maternal Aunt Breast cancer Social History Housing: House Alcohol intake: current Alcohol intake frequency: does not drink Patient Tobacco Use Status: Current everyday Tobacco user Tobacco use type: Cigarette Cigarette Packs Per Day: 0.5 Cigarettes Per Day: 10 e-Cigarette/Vaping Use: Never Used Second Hand Smoke Exposure: Yes service: No Current occupational status: employed Cognitive needs: No Hearing needs: No Vision needs: No Questionnaire PHQ-9 Over the last 2 weeks, how often have you been bothered by any of the following problems? 1. Little interest or pleasure in doing things: several days 2. Feeling down, depressed, or hopeless: several days 3. Trouble falling or staying asleep, or sleeping too much: several days 4. Feeling tired or having little energy: several days 5. Poor appetite or overeating: several days 6. Feeling bad about yourself - or that you are a failure or have let yourself or your family down: several days 7. Trouble concentrating on things, such as reading the newspaper or watching television: not at all 8. Moving or speaking so slowly that other people could have noticed. Or the opposite - being so fidgety or restless that you have been moving around a lot more than usual: not at all 9. Thoughts that you would be better off or of hurting yourself in some way: not at all Total score: 6 Depression Screening Interpretation: Positive Depression Screening Follow-up: Follow-up Visit Requested Depression Screening Done: Yes 55198 - PHQ-9 Billing: Yes Source: Developed by Drs. Jeronimo Kenney, Shawna Grier, Floyd Marcelo and colleagues, with an educational yara from [employer]. Thrive Questionnaire Date Thrive assessed: 02/28/25 I am a: Patient What is your living situation today?: I choose not to answer this question Within the past 12 months, did the food you bought not last and you didn't have the money to get more?: Sometimes True Within the past 12 months, did you worry whether your food would run out before you got money to buy more?: Sometimes True Do you have trouble paying for medicines?: No Do you have trouble getting transportation to medical appointments?: No Do you have trouble paying your heating and electricity bill?: Yes Do you have trouble taking care of your child, family member or friend?: No Do you have trouble with day-to-day activities such as bathing, preparing meals, shopping, managing finances, etc.?: No Are you currently unemployed and looking for a job?: Yes Are you interested in more education?: I choose not to answer this question Please select the resources that you would like help with: Housing/[facility] and Utilities Currently or been in a relationship where the following occur: No concerns reported THRIVE Score: 3 AUDIT C Alcohol Use Questionnaire (AUDIT-C) 1. How often do you have a drink containing alcohol?: Never 3. How often do you have six or more drinks on one occasion?: Never Total Score: 0 Score Reviewed/Action Taken: Yes FRANCHESCA-7 AMB Questionnaire FRANCHESCA-7 Date FRANCHESCA - 7 assessed: 02/28/25 Feeling nervous, anxious, or on edge: 1 = Several days Not being able to stop or control worryin = Several days Worrying too much about different things: 1 = Several days Trouble relaxin = Several days Being so restless that it is hard to sit still: 0 = Not at all Becoming easily annoyed or irritable: 0 = Not at all Feeling afraid as if something awful might happen: 0 = Not at all Total FRANCHESCA-7 score (0-4 normal; 5-9 mild; 10-14 moderate; 15-21 severe): 4 Source: Developed by Drs. Jeronimo Kenney, Shawna Grier, Floyd Marcelo and colleagues, with an educational yara from [employer]. Review of Systems Const Denies chills, Denies fatigue, Denies fever(s), Denies headache(s) and Denies malaise Eyes Denies blurry vision, Denies change in vision, Denies irritation and Denies itchy eyes ENT Denies dysphagia, Denies dizziness, Denies otalgia, Denies headache(s), Denies nasal congestion, Denies neck pain, Denies odynophagia, Denies sinus pain and Denies sore throat Card Denies chest pain, Denies rapid heart rate, Denies irregular heart rhythm, Denies palpitations and Denies dyspnea Resp Denies chest congestion, Denies cough, Denies dyspnea and Denies wheezing GI Denies abdominal pain, Denies bloating, Denies constipation, Denies dysphagia, Denies heartburn, Denies diarrhea, Denies nausea, Denies odynophagia and Denies vomiting Denies hematuria, Denies urinary frequency, Denies dysuria, Denies urinary incontinence and Denies urinary urgency Musc Reports back pain (over the lower back - chronic), Reports arthralgias (in the left knee - mostly when the cyst on the side of the knee swells up ), Denies joint swelling, Denies muscle weakness and Denies neck pain Skin/Breast Denies breast pain, Denies breast mass, Denies change in pigmentation, Denies lesions, Denies rash and Denies unusual bruising Neuro Denies dizziness, Denies headache(s) and Denies paresthesias Psych Denies anxiety and Denies depression Endo Denies fatigue and Denies palpitations Silas/Lymph Denies easy bruising Aller/Immun Denies itchy eyes and Denies wheezing Physical exam (Primary Care) Vital Signs: Last Vital Signs Pulse 75 02/28/25 13:35 BP 118/80 02/28/25 13:35 Pulse Ox 98 02/28/25 13:35 Oxygen Delivery Method Room Air 02/28/25 13:35 BMI result Body Mass Index 22.9 Tobacco/Smoking Status: Tobacco use Status Tobacco use date assessed 02/28/25 02/28/25 13:41 Patient Tobacco Use Status Current everyday Tobacco 02/28/25 13:41 Tobacco use type Cigarette 02/28/25 13:41 e-Cigarette/Vaping Use Never Used 02/28/25 13:41 PHQ-9: PHQ-9 Score PHQ-9: Total score 6 02/28/25 14:00 Depression Screening Interpretation: Positive Depression Screening Follow-up: Follow-up Visit Requested Thrive Assessment: Date of Thrive Assessment Date Thrive assessed 02/28/25 02/28/25 13:41 Currently or been in a relationship where the following occur: No concerns reported Const General: no acute distress, alert and awake Orientation/consciousness: patient oriented x3 HENMT Head: Yes normocephalic and Yes atraumatic Ears: external ears normal, TM's normal bilaterally and EAC's normal General nose exam: No nasal discharge present Face and sinus: Yes normal facial exam and Yes sinuses nontender Teeth and gingiva: dentition normal Throat: Yes posterior oropharynx normal and Yes tonsils normal (no TP congestion) Eyes Eyelids: Yes eyelids normal Conjunctivae: conjunctivae normal Pupils: Equal, round and reactive pupils present EOM: EOMs intact bilaterally Neck Neck: Yes no lymphadenopathy and Yes supple Thyroid: Thyroid normal Resp Auscultation: clear to auscultation bilaterally, no rales and no wheezes Cardio Rate: regular rate Rhythm: regular rhythm Heart sounds: no murmurs GI Palpation (GI): Soft to palpation, nontender and No hepatosplenomegaly present Auscultation: normal bowel sounds General: Yes no CVA tenderness Back/Spine/Pelvis Back: no CVA tenderness Thoracic/Lumbar Spine: lumbar spinal tenderness Skin Other: (+) palpable cyst on the lateral side of the left knee - cyst is slightly tender on deep palpation Lesions: no lesions Rashes: no rashes Neuro General: patient oriented x3, moves all extremities, no focal motor deficits and CN's II-XI intact bilaterally Cranial nerves: Yes Equal, round and reactive pupils present Cognition (Neuro): normal cognition Gait exam (Neuro): Normal gait present Extrem General: Yes no clubbing, cyanosis or edema Coding Level of Care Code Est Pt Prev Care 40-64y(56318) Diagnoses Annual physical exam Z00.00 Mild intermittent asthma without complication J45.20 Asthma severity: mild Asthma persistence: intermittent Asthma complication type: uncomplicated Degeneration of intervertebral disc of lumbar region with discogenic back pain M51.360 Disc-related pain type: discogenic back pain only Seasonal allergic rhinitis, unspecified trigger J30.2 Allergic rhinitis trigger: unspecified Allergic rhinitis seasonality: seasonal Ganglion cyst M67.40 Smoker F17.200 Colon cancer screening Z12.11 Breast cancer screening by mammogram Z12.31 Cervical cancer screening Z12.4 Additional Codes PHQ-9 - 16468 - PHQ-9 Billing: Yes ([id number]) Assessment & Plan Assessment & Plan (1) Annual physical exam: Code(s): Z00.00 - Encounter for general adult medical examination without abnormal findings Category: Medical Plan: Check labs DWAINE - these were previously ordered and patient is advised to go and get these done DWAINE She is now due for all of her cancer screenings (2) Asthma: Code(s): J45.909 - Unspecified asthma, uncomplicated Category: Medical Qualifiers: Asthma severity: mild Asthma persistence: intermittent Asthma complication type: uncomplicated Qualified Code(s): J45.20 - Mild intermittent asthma, uncomplicated Plan: Controlled Continue Albuterol HFA 1 to 2 inhalations QID PRN (3) Lumbar degenerative disc disease: Comment: chronic Code(s): M51.369 - Other intervertebral disc degeneration, lumbar region without mention of lumbar back pain or lower extremity pain Category: Medical Qualifiers: Disc-related pain type: discogenic back pain only Qualified Code(s): M51.360 - Other intervertebral disc degeneration, lumbar region with discogenic back pain only Plan: Reinforced activity and weight-lifting restrictions to avoid aggravating her low back pain Continue Oxycodone 10 mg Q 6 hours PRN - Rx refilled (4) Allergic rhinitis: Code(s): J30.9 - Allergic rhinitis, unspecified Category: Medical Qualifiers: Allergic rhinitis trigger: unspecified Allergic rhinitis seasonality: seasonal Qualified Code(s): J30.2 - Other seasonal allergic rhinitis Plan: Continue Cetirizine 10 mg QD PRN (5) Ganglion cyst: Code(s): M67.40 - Ganglion, unspecified site Category: Medical Plan: Will refer patient to surgery for further evaluation and management and consideration for excision of the cyst on the lateral side of her left knee (6) Smoker: Code(s): F17.200 - Nicotine dependence, unspecified, uncomplicated Category: Social Hx Plan: Patient is counseled again on complete smoking cessation (7) Colon cancer screening: Code(s): Z12.11 - Encounter for screening for malignant neoplasm of colon Category: Medical Plan: Will refer her to GI for repeat colonoscopy (8) Breast cancer screening by mammogram: Code(s): Z12.31 - Encounter for screening mammogram for malignant neoplasm of breast Category: Medical Plan: Will send patient for her annual mammogram (9) Cervical cancer screening: Code(s): Z12.4 - Encounter for screening for malignant neoplasm of cervix Category: Medical Plan: [facility] exam and pap smear Plan Follow up in 1 month Orders: Orders MM tomosynthesis screening BI 02/28/25 Z12.31 - Encounter for screening mammogram for malignant neoplasm of breast Referrals Gastroenterology Referral Z12.11 - Encounter for screening for malignant neoplasm of colon General Surgery Referral M67.40 - Ganglion, unspecified site SECURITY ASSURANCE ANALYST Referral Z12.4 - Encounter for screening for malignant neoplasm of cervix Medications: Refilled oxycodone Covering for Dr Griffith 10 mg PO Q6H 28 days PRN 112 tabs 0RF pain
== END 2025-02-28 14:01 | disposition home or self-care (01) ==
LOC: HO.HMCH 13:27
PROVIDERS: PCP Internal Medicine; Visit Provider Internal Medicine
DX: Z00.00 Encounter for general adult medical examination without abnormal findings (principal); J45.20 Mild intermittent asthma, uncomplicated; M51.360 Other intervertebral disc degeneration, lumbar region with discogenic back pain only; J30.2 Other seasonal allergic rhinitis; M67.40 Ganglion, unspecified site; F17.200 Nicotine dependence, unspecified, uncomplicated; Z12.11 Encounter for screening for malignant neoplasm of colon; Z12.31 Encounter for screening mammogram for malignant neoplasm of breast; Z12.4 Encounter for screening for malignant neoplasm of cervix

== ENCOUNTER → 2025-02-28 13:26 | Outpatient (BNVA) | payer OTHER, SELFPAY | PROVIDERS: PCP Internal Medicine; Visit Provider Internal Medicine | DX: Z00.00 Encounter for general adult medical examination without abnormal findings (principal); J45.20 Mild intermittent asthma, uncomplicated; M51.360 Other intervertebral disc degeneration, lumbar region with discogenic back pain only; J30.2 Other seasonal allergic rhinitis; M67.40 Ganglion, unspecified site; F17.210 Nicotine dependence, cigarettes, uncomplicated | CPT/HCPCS: 96127; 99396 ==

== ENCOUNTER 2025-03-28 09:21 | Outpatient (REF) | payer OTHER, SELFPAY ==
[2025-03-28 10:21] LABS: MANUAL DIFF FLAG NO
[2025-03-28 10:40] LABS: Basophils Percent Auto 0.5 % (0-2); Eosinophils Absolute Auto 0.3 X10*3/uL (0.0-0.4); Eosinophils Percent Auto 3.8 % (0-4); Hematocrit 31.6 % (37.0-47.0); Hemoglobin 10.7 g/dl (12.0-16.0); Imm Gran Abs Auto 0.02 X10*3/uL (0.00-0.03); Imm Gran Pct Auto 0.2 % (0.0-0.4); Lymphocytes Absolute Auto 2.5 X10*3/uL (1.2-4.9); Lymphocytes Percent Auto 28.8 % (20-40); Mean Corpuscular HGB Conc 33.9 g/dl (31.0-35.0); Mean Corpuscular Hemoglobin 31.2 pg (27.0-33.0); Mean Corpuscular Volume 92.1 fL (80.0-98.0); Mean Platelet Volume 11.4 fL (9.4-12.3); Monocytes Absolute Auto 0.7 X10*3/uL (0.1-1.2); Monocytes Percent Auto 7.7 % (2-11); Neutrophils Absolute Auto 5.2 x10*3/uL (2.0-8.3); Platelet Count 269 X10*3/uL (160-400); Red Blood Count 3.43 X10*6/uL (4.20-5.50); Red Cell Distribution Width 12.4 % (11.0-16.0); White Blood Count 8.7 X10*3/uL (4.8-10.8)
[2025-03-28 11:29] LABS: Alanine Aminotransferase 18 U/L (0-31); Albumin Level 4.1 g/dL (3.5-5.0); Alkaline Phosphatase 59 U/L (39-117); Anion Gap 11 (12-20); Aspartate Amino Transferase 20 U/L (5-31); Bilirubin Total 0.4 mg/dL (0.0-1.0); Blood Urea Nitrogen 11 mg/dL (9-16); Calcium 8.9 mg/dL (8.4-10.2); Carbon Dioxide 26 mmol/L (22-29); Chloride 106 mmol/L (96-108); Cholesterol 138 mg/dL (<200); Estimated Glomerular Filt Rate > 60; Glucose Fasting 101 mg/dL (60-99); HDL Cholesterol 45 mg/dL (>40); LDL Cholesterol Calculated 83 mg/dL (<100); Potassium 3.7 mmol/L (3.3-5.1); Sodium 139 mmol/L (135-145); TSH reflex Free T4 0.76 uIU/mL (0.32-4.0); Total Protein 6.3 g/dL (6.5-8.0); Triglycerides 53 mg/dL (<150); Vitamin D 25-OH Total 35.9 ng/mL (>30)
== END 2025-03-28 09:22 | disposition home or self-care (01) ==
LOC: HO.LAB 09:21
PROVIDERS: Absent Provider Internal Medicine; PCP Nurse Practitioner Family
DX: M51.360 Other intervertebral disc degeneration, lumbar region with discogenic back pain only (principal); K59.00 Constipation, unspecified; E55.9 Vitamin D deficiency, unspecified; D64.9 Anemia, unspecified; E78.00 Pure hypercholesterolemia, unspecified; Z00.00 Encounter for general adult medical examination without abnormal findings
CPT/HCPCS: 36415; 80053; 80061; 82306; 84443; 85025; 99212

== ENCOUNTER 2025-03-28 09:21 | Outpatient (AMB) | payer OTHER, SELFPAY ==
--- NOTE | 2025-03-28 09:29 | A.OFFPC_ITS ---
Vital Signs 03/28/25 09:30 Height 5 ft 5 in Weight 139 lb 6 oz BMI 23.2 BP 116/60 Blood Pressure Location Lt brachial Position Sitting Respiration 18 Pulse 69 Pulse Source Pulse Oximeter Temp 97.5 F Temp Source Temporal Artery Scan Pulse Oximetry (%) 98 Oxygen Delivery Method Room Air Intake Visit Reasons: med f/u Intake Note: Patient is here to follow up on Med review. Shipping Receiving Clerk Required: No Inventory Administrator: Not Required per policy Accompanied by: Self / Same As Patient Allergies No Known Allergies Allergy (Unknown, Verified 03/28/25 09:49) Medication List - Last Reconciled 03/28/25 by BRENDEN Britt albuterol sulfate 90 mcg/actuation 2 puffs inhalation Q4-6H PRN 30 days albuterol sulfate 2.5 mg (3 mL) inhalation Q4-6H PRN cephalexin 500 mg PO QID cetirizine 10 mg PO DAILY PRN 90 days ibuprofen 600 mg PO TID nebulizers As directed nicotine 1 patch transdermal DAILY oxycodone 10 mg PO Q6H PRN 28 days selenium sulfide 2.5% 1 appl topical DAILY 30 days Tobacco use date assessed: 03/28/25 Dental Screening Dental Screen Date: 02/28/25 HPI med f/u HPI Details The patient is a 45-year-old female presenting for a follow-up on chronic lower back pain management. The patient reports chronic lower back pain, primarily localized to the tailbone area, which has developed over time without a specific injury. She attributes the pain to her history of dancing and cheerleading, which may have contributed to deterioration in her lower back. Cortisone injections were attempted but did not provide relief, and imaging suggested possible prior tailbone fracture. She also experienced sciatica, which has subsided with the help of stretching exercises found online by her son. Occasionally, she feels a sensation willam to a hot tobacco primer machine operator the center of her spine, which is intermittent. The patient reports occasional constipation, which she manages carefully, especially considering her medication regimen. She has been advised to use MiraLax daily and increase water intake to prevent constipation. [facility] Medical History Smoker Allergic rhinitis Lumbar degenerative disc disease Asthma Surgical History History of colonoscopy H/O tooth extraction History of carpal tunnel release History of D&C History of total cystectomy History of tonsillectomy Family History Father Alive and well Mother Alive and well Maternal Aunt Breast cancer Social History Housing: House Alcohol intake: current Alcohol intake frequency: does not drink Patient Tobacco Use Status: Current everyday Tobacco user Tobacco use type: Cigarette Cigarette Packs Per Day: 0.5 Cigarettes Per Day: 10 e-Cigarette/Vaping Use: Never Used Second Hand Smoke Exposure: Yes service: No Current occupational status: employed Cognitive needs: No Hearing needs: No Vision needs: No Questionnaire Thrive Questionnaire Date Thrive assessed: 02/28/25 I am a: Patient What is your living situation today?: I choose not to answer this question Within the past 12 months, did the food you bought not last and you didn't have the money to get more?: Sometimes True Within the past 12 months, did you worry whether your food would run out before you got money to buy more?: Sometimes True Do you have trouble paying for medicines?: No Do you have trouble getting transportation to medical appointments?: No Do you have trouble paying your heating and electricity bill?: Yes Do you have trouble taking care of your child, family member or friend?: No Do you have trouble with day-to-day activities such as bathing, preparing meals, shopping, managing finances, etc.?: No Are you currently unemployed and looking for a job?: Yes Are you interested in more education?: I choose not to answer this question Currently or been in a relationship where the following occur: No concerns reported THRIVE Score: 3 FRANCHESCA-7 AMB Questionnaire FRANCHESCA-7 Date FRANCHESCA - 7 assessed: 02/28/25 Source: Developed by Drs. Jeronimo Kenney, Shawna Grier, Floyd Marcelo and colleagues, with an educational yara from [employer]. Review of Systems Const Denies headache(s) Eyes Denies loss of vision ENT Denies vertigo, Denies dizziness, Denies headache(s) and Denies sore throat Card Denies chest pain, Denies leg edema and Denies lightheadedness Resp Denies cough, Denies hemoptysis and Denies wheezing GI Denies abdominal pain, Denies melena, Reports constipation (Occasional), Denies diarrhea and Denies vomiting Denies urinary frequency, Denies dysuria and Denies urinary urgency Musc Reports back pain (Lower back), Denies numbness and Denies tingling Neuro Denies Abnormal speech present, Denies vertigo, Denies dizziness, Denies headache(s), Denies loss of vision, Denies numbness and Denies tingling Aller/Immun Denies wheezing Physical exam (Primary Care) Vital Signs: Last Vital Signs Temp 97.5 F 03/28/25 09:30 Pulse 69 03/28/25 09:30 Resp 18 03/28/25 09:30 BP 116/60 03/28/25 09:30 Pulse Ox 98 03/28/25 09:30 Oxygen Delivery Method Room Air 03/28/25 09:30 BMI result Body Mass Index 23.2 Tobacco/Smoking Status: Tobacco use Status Tobacco use date assessed 03/28/25 03/28/25 09:37 Patient Tobacco Use Status Current everyday Tobacco 03/28/25 09:37 Tobacco use type Cigarette 03/28/25 09:37 e-Cigarette/Vaping Use Never Used 03/28/25 09:37 Thrive Assessment: Date of Thrive Assessment Date Thrive assessed 02/28/25 03/28/25 09:37 Currently or been in a relationship where the following occur: No concerns reported Const General: healthy appearing, no acute distress, alert and awake Nutritional Appearance: well nourished Orientation/consciousness: oriented to person, oriented to place and oriented to time [facility] Ears: external ears normal General nose exam: Normal external nose present Eyes Conjunctivae: conjunctivae normal Sclerae: sclerae normal Pupils: Equal, round and reactive pupils present Neck Neck: Yes no lymphadenopathy and Yes no JVD Thyroid: Thyroid normal Carotids: no bruits Resp Effort & Inspection: normal respiratory effort and not tachypneic Auscultation: no crackles, no rales, no rhonchi and no wheezes Cardio Rate: regular rate Rhythm: regular rhythm Heart sounds: no murmurs and normal S1 and S2 GI Palpation (GI): Soft to palpation, nontender, no hepatomegaly and no splenom egaly Auscultation: normal bowel sounds General: Yes no CVA tenderness Back/Spine/Pelvis Back: no CVA tenderness Cervical Spine: No Cervical spine tenderness Thoracic/Lumbar Spine: No thoracic spinal tenderness and No lumbar spinal tenderness Neuro General: oriented to person, oriented to place and oriented to time Cranial nerves: Yes Equal, round and reactive pupils present Speech: No Abnormal speech present Gait exam (Neuro): Normal gait present Motor exam (neuro): no tremor noted Extrem Right upper extremity: full ROM Left upper extremity: full ROM Right lower extremity: full ROM; no edema Left lower extremity: full ROM; no edema Psych Mental Status: mental status grossly normal Speech and movement: Normal speech and movement present Affect: normal affect Attitude: cooperative Thought process: Normal thought process present Coding Level of Care Code Est Pt Level 3 (15913) Diagnoses Degeneration of intervertebral disc of lumbar region with discogenic back pain M51.360 Disc-related pain type: discogenic back pain only Constipation, unspecified constipation type K59.00 Constipation type: unspecified constipation type Time Spent (min) 32 Assessment & Plan Assessment & Plan (1) Lumbar degenerative disc disease: Comment: chronic Code(s): M51.369 - Other intervertebral disc degeneration, lumbar region without mention of lumbar back pain or lower extremity pain Category: Medical Qualifiers: Disc-related pain type: discogenic back pain only Qualified Code(s): M51.360 - Other intervertebral disc degeneration, lumbar region with discogenic back pain only (2) Constipation: Code(s): K59.00 - Constipation, unspecified Category: Medical Qualifiers: Constipation type: unspecified constipation type Qualified Code(s): K59.00 - Constipation, unspecified Plan The patient will continue with her current pain management regimen for chronic lower back pain, with a focus on non-pharmacological interventions such as stretching exercises that have previously provided relief. She is advised to maintain hydration and use MiraLax daily to manage constipation, especially considering her medication regimen. Patient was informed and verbally consented to the use of an ambient scribe for clinic note documentation during this visit. Medications: Changed From oxycodone Covering for Dr Griffith 10 mg PO Q6H 28 days PRN 112 tabs 0RF pain To oxycodone 10 mg PO Q6H PRN 112 tabs 0RF pain 28 days Refilled ibuprofen 600 mg PO TID 90 tabs 8RF
[2025-03-28 09:30] VITALS: BP 116/60; PULSE 69; RESP 18; TEMP 36.4; O2SAT 98; BMI 23.2
== END 2025-03-28 09:59 | disposition home or self-care (01) ==
LOC: HO.HMCH 09:22
PROVIDERS: PCP Internal Medicine
DX: M51.360 Other intervertebral disc degeneration, lumbar region with discogenic back pain only (principal); K59.00 Constipation, unspecified

== ENCOUNTER 2025-04-25 09:46 | Outpatient (AMB) | payer OTHER, SELFPAY ==
[2025-04-25 09:49] VITALS: BP 110/74; PULSE 68; O2SAT 98; BMI 22.9
--- NOTE | 2025-04-25 09:49 | MHC.PC.OV ---
Vital Signs 04/25/25 09:49 Height 5 ft 5 in Weight 137 lb 6 oz BMI 22.9 BP 110/74 Blood Pressure Location Lt brachial Position Sitting Pulse 68 Pulse Source Pulse Oximeter Pulse Oximetry (%) 98 Oxygen Delivery Method Room Air Intake Visit Reasons: med f/u Imaging Aide Required: No Accompanied by: Self / Same As Patient Allergies No Known Allergies Allergy (Unknown, Verified 04/25/25 10:31) Medication List - Last Reconciled 04/25/25 by Louis Thurston MD albuterol sulfate 90 mcg/actuation 2 puffs inhalation Q4-6H PRN 30 days albuterol sulfate 2.5 mg (3 mL) inhalation Q4-6H PRN cetirizine 10 mg PO DAILY PRN 90 days ibuprofen 600 mg PO TID nebulizers As directed nicotine 1 patch transdermal DAILY oxycodone 10 mg PO Q6H PRN 28 days selenium sulfide 2.5% 1 appl topical DAILY 30 days Tobacco use date assessed: 04/25/25 Dental Screening Dental Screen Date: 04/25/25 Did you have a dental visit in the last 12 months?: Yes Did you have a dental problem in the last 6 months where you did not have access to dental care?: No Was dental information given to patient?: Patient has dentist HPI med f/u HPI Details Patient comes in today for her follow up visit States that she feels okay She denies any headaches or dizziness Denies any chest pains, no increased SOB No nausea/vomiting, no abdominal pain No change in bowel habits noted She had her follow up labs done last month - to discuss her results [facility] Medical History Smoker Allergic rhinitis Lumbar degenerative disc disease Asthma Surgical History History of colonoscopy H/O tooth extraction History of carpal tunnel release History of D&C History of total cystectomy History of tonsillectomy Family History Father Alive and well Mother Alive and well Maternal Aunt Breast cancer Social History Housing: House Alcohol intake: current Alcohol intake frequency: does not drink Patient Tobacco Use Status: Current everyday Tobacco user Tobacco use type: Cigarette Cigarette Packs Per Day: 0.5 Cigarettes Per Day: 10 e-Cigarette/Vaping Use: Never Used Second Hand Smoke Exposure: Yes service: No Current occupational status: employed Cognitive needs: No Hearing needs: No Vision needs: No Questionnaire PHQ-9 Over the last 2 weeks, how often have you been bothered by any of the following problems? 1. Little interest or pleasure in doing things: several days 2. Feeling down, depressed, or hopeless: several days 3. Trouble falling or staying asleep, or sleeping too much: several days 4. Feeling tired or having little energy: several days 5. Poor appetite or overeating: several days 6. Feeling bad about yourself - or that you are a failure or have let yourself or your family down: several days 7. Trouble concentrating on things, such as reading the newspaper or watching television: not at all 8. Moving or speaking so slowly that other people could have noticed. Or the opposite - being so fidgety or restless that you have been moving around a lot more than usual: not at all 9. Thoughts that you would be better off or of hurting yourself in some way: not at all Total score: 6 Depression Screening Interpretation: Positive Depression Screening Follow-up: Follow-up Visit Requested Depression Screening Done: Yes 04624 - PHQ-9 Billing: Yes Source: Developed by Drs. Jeronimo Kenney, Shawna Grier, Floyd Marcelo and colleagues, with an educational yara from [employer]. Thrive Questionnaire Date Thrive assessed: 04/25/25 I am a: Patient What is your living situation today?: I choose not to answer this question Within the past 12 months, did the food you bought not last and you didn't have the money to get more?: Sometimes True Within the past 12 months, did you worry whether your food would run out before you got money to buy more?: Sometimes True Do you have trouble paying for medicines?: No Do you have trouble getting transportation to medical appointments?: No Do you have trouble paying your heating and electricity bill?: Yes Do you have trouble taking care of your child, family member or friend?: No Do you have trouble with day-to-day activities such as bathing, preparing meals, shopping, managing finances, etc.?: No Are you currently unemployed and looking for a job?: Yes Are you interested in more education?: I choose not to answer this question Currently or been in a relationship where the following occur: No concerns reported THRIVE Score: 3 AUDIT C Alcohol Use Questionnaire (AUDIT-C) 1. How often do you have a drink containing alcohol?: Never 3. How often do you have six or more drinks on one occasion?: Never Total Score: 0 Score Reviewed/Action Taken: Yes FRANCHESCA-7 AMB Questionnaire FRANCHESCA-7 Date FRANCHESCA - 7 assessed: 04/25/25 Feeling nervous, anxious, or on edge: 0 = Not at all Not being able to stop or control worryin = Not at all Worrying too much about different things: 0 = Not at all Trouble relaxin = Not at all Being so restless that it is hard to sit still: 0 = Not at all Becoming easily annoyed or irritable: 0 = Not at all Feeling afraid as if something awful might happen: 0 = Not at all Total FRANCHESCA-7 score (0-4 normal; 5-9 mild; 10-14 moderate; 15-21 severe): 0 Source: Developed by Drs. Jeronimo Kenney, Shawna Grier, Floyd Marcelo and colleagues, with an educational yara from [employer]. Review of Systems Const Denies chills, Denies fatigue, Denies fever(s) and Denies headache(s) ENT Denies dysphagia, Denies dizziness, Denies otalgia, Denies headache(s), Denies neck pain, Denies odynophagia and Denies sore throat Card Denies chest pain, Denies rapid heart rate, Denies irregular heart rhythm, Denies palpitations and Denies dyspnea Resp Denies chest congestion, Denies cough and Denies dyspnea GI Denies abdominal pain, Denies constipation, Denies dysphagia, Denies heartburn, Denies diarrhea, Denies nausea, Denies odynophagia and Denies vomiting Denies urinary frequency, Denies dysuria and Denies urinary urgency Musc Reports back pain (over the lower back - chronic), Reports arthralgias (in the left knee - mostly when the cyst on the side of the knee swells up ) and Denies neck pain Skin/Breast Denies rash Neuro Denies dizziness, Denies headache(s) and Denies paresthesias Psych Denies anxiety and Denies depression Endo Denies fatigue and Denies palpitations Silas/Lymph Denies easy bruising Physical exam (Primary Care) Vital Signs: Last Vital Signs Pulse 68 04/25/25 09:49 BP 110/74 04/25/25 09:49 Pulse Ox 98 04/25/25 09:49 Oxygen Delivery Method Room Air 04/25/25 09:49 BMI result Body Mass Index 22.9 Tobacco/Smoking Status: Tobacco use Status Tobacco use date assessed 04/25/25 04/25/25 09:51 Patient Tobacco Use Status Current everyday Tobacco 04/25/25 09:51 Tobacco use type Cigarette 04/25/25 09:51 e-Cigarette/Vaping Use Never Used 04/25/25 09:51 PHQ-9: PHQ-9 Score PHQ-9: Total score 6 04/25/25 09:51 Depression Screening Interpretation: Positive Depression Screening Follow-up: Follow-up Visit Requested Thrive Assessment: Date of Thrive Assessment Date Thrive assessed 04/25/25 04/25/25 09:51 Currently or been in a relationship where the following occur: No concerns reported Const General: no acute distress and alert HENMT Throat: Yes posterior oropharynx normal and Yes tonsils normal (no TP congestion) Neck Neck: Yes supple and No lymphadenopathy Thyroid: Thyroid normal Resp Auscultation: no crackles, no rales, rhonchi (scattered bilaterally) and no wheezes Cardio Rate: regular rate Rhythm: regular rhythm Heart sounds: no murmurs GI Palpation (GI): Soft to palpation and nontender Auscultation: normal bowel sounds General: Yes no CVA tenderness Back/Spine/Pelvis Back: no CVA tenderness Thoracic/Lumbar Spine: lumbar spinal tenderness Skin Rashes: no rashes Extrem General: Yes no clubbing, cyanosis or edema Results Reviewed Results Reviewed: Laboratory Tests 03/28/25 10:20 WBC 8.7 Hgb 10.7 L Hct 31.6 L Plt Count 269 D Sodium 139 Potassium 3.7 Creatinine 0.82 Estimated GFR > 60 Fasting Glucose 101 H Calcium 8.9 AST 20 ALT 18 Triglycerides 53 Cholesterol 138 LDL Cholesterol, Calc 83 HDL Cholesterol 45 25-OH Vitamin D Total 35.9 TSH 0.76 Coding Level of Care Code Est Pt Level 4 (62488) Diagnoses Mild intermittent asthma without complication J45.20 Asthma severity: mild Asthma persistence: intermittent Asthma complication type: uncomplicated Degeneration of intervertebral disc of lumbar region with discogenic back pain M51.360 Disc-related pain type: discogenic back pain only Mild chronic anemia D64.9 Seasonal allergic rhinitis, unspecified trigger J30.2 Allergic rhinitis trigger: unspecified Allergic rhinitis seasonality: seasonal Smoker F17.200 Additional Codes PHQ-9 - 93297 - PHQ-9 Billing: Yes ([id number]) Assessment & Plan Assessment & Plan (1) Asthma: Code(s): J45.909 - Unspecified asthma, uncomplicated Category: Medical Qualifiers: Asthma severity: mild Asthma persistence: intermittent Asthma complication type: uncomplicated Qualified Code(s): J45.20 - Mild intermittent asthma, uncomplicated Plan: Controlled Continue Albuterol HFA 1 to 2 inhalations QID PRN (2) Lumbar degenerative disc disease: Comment: chronic Code(s): M51.369 - Other intervertebral disc degeneration, lumbar region without mention of lumbar back pain or lower extremity pain Category: Medical Qualifiers: Disc-related pain type: discogenic back pain only Qualified Code(s): M51.360 - Other intervertebral disc degeneration, lumbar region with discogenic back pain only Plan: Reinforced activity and weight-lifting restrictions to avoid aggravating her low back pain Continue Oxycodone 10 mg Q 6 hours PRN - Rx refilled (3) Mild chronic anemia: Code(s): D64.9 - Anemia, unspecified Category: Medical Plan: She remains slightly anemic on her recent labs, with H/H at 10.7/31.6 She does not appear to have any microcytosis on hypochromia on her recent labs and she has no evidence of renail impairment so her anemia is most likely related to her monthly menstrual periods Will continue to monitor her CBC regularly for now (4) Allergic rhinitis: Code(s): J30.9 - Allergic rhinitis, unspecified Category: Medical Qualifiers: Allergic rhinitis trigger: unspecified Allergic rhinitis seasonality: seasonal Qualified Code(s): J30.2 - Other seasonal allergic rhinitis Plan: Continue Cetirizine 10 mg QD PRN (5) Smoker: Code(s): F17.200 - Nicotine dependence, unspecified, uncomplicated Category: Social Hx Plan: Patient is counseled again on complete smoking cessation Plan Results of her labs done last month reviewed and discussed with patient Follow up in 1 month Medications: Changed From ibuprofen 600 mg PO TID 90 tabs 8RF To ibuprofen 600 mg PO TID PRN 90 tabs 5RF pain Refilled oxycodone 10 mg PO Q6H PRN 112 tabs 0RF pain 28 days
== END 2025-04-25 10:38 | disposition home or self-care (01) ==
LOC: HO.HMCH 09:47
PROVIDERS: PCP Internal Medicine; Visit Provider Internal Medicine
DX: J45.20 Mild intermittent asthma, uncomplicated (principal); M51.360 Other intervertebral disc degeneration, lumbar region with discogenic back pain only; D64.9 Anemia, unspecified; J30.2 Other seasonal allergic rhinitis; F17.200 Nicotine dependence, unspecified, uncomplicated

== ENCOUNTER → 2025-04-25 09:46 | Outpatient (BNVA) | payer OTHER, SELFPAY | PROVIDERS: PCP Internal Medicine; Visit Provider Internal Medicine | DX: J45.20 Mild intermittent asthma, uncomplicated (principal); M51.360 Other intervertebral disc degeneration, lumbar region with discogenic back pain only; D64.9 Anemia, unspecified; J30.2 Other seasonal allergic rhinitis; F17.210 Nicotine dependence, cigarettes, uncomplicated | CPT/HCPCS: 96127; 99212 ==

== ENCOUNTER 2025-05-23 09:56 | Outpatient (AMB) | payer OTHER, SELFPAY ==
[2025-05-23 09:59] VITALS: BP 126/64; PULSE 75; RESP 16; TEMP 36.2; O2SAT 95; BMI 22.8
--- NOTE | 2025-05-23 09:59 | A.OFFPC_ITS ---
Vital Signs 05/23/25 09:59 Height 5 ft 5 in Weight 137 lb 2 oz BMI 22.8 BP 126/64 Blood Pressure Location Lt brachial Position Sitting Respiration 16 Pulse 75 Pulse Source Pulse Oximeter Temp 97.1 F Temp Source Temporal Artery Scan Pulse Oximetry (%) 95 Oxygen Delivery Method Room Air Intake Visit Reasons: med f/u Allergies No Known Allergies Allergy (Unknown, Verified 05/23/25 10:24) Medication List - Last Reconciled 05/23/25 by Louis Thurston MD albuterol sulfate 90 mcg/actuation 2 puffs inhalation Q4-6H PRN 30 days albuterol sulfate 2.5 mg (3 mL) inhalation Q4-6H PRN cetirizine 10 mg PO DAILY PRN 90 days ibuprofen 600 mg PO TID PRN nebulizers As directed nicotine 1 patch transdermal DAILY oxycodone 10 mg PO Q6H PRN 28 days selenium sulfide 2.5% 1 appl topical DAILY 30 days Tobacco use date assessed: 05/23/25 Dental Screening Dental Screen Date: 05/23/25 Did you have a dental visit in the last 12 months?: Yes Did you have a dental problem in the last 6 months where you did not have access to dental care?: No Was dental information given to patient?: Patient has dentist HPI med f/u HPI Details Patient comes in today for her follow up visit States that she feels okay She denies any headaches or dizziness Denies any chest pains, no increased SOB No nausea/vomiting, no abdominal pain No change in bowel habits noted States that her low back pain and joint pains remains adequately controlled on her current Rx and that she needs her pain meds and a couple of other Rx refilled today [facility] Medical History Smoker Allergic rhinitis Lumbar degenerative disc disease Asthma Surgical History History of colonoscopy H/O tooth extraction History of carpal tunnel release History of D&C History of total cystectomy History of tonsillectomy Family History Father Alive and well Mother Alive and well Maternal Aunt Breast cancer Social History Housing: House Alcohol intake: current Alcohol intake frequency: does not drink Patient Tobacco Use Status: Current everyday Tobacco user Tobacco use type: Cigarette Cigarette Packs Per Day: 0.5 Cigarettes Per Day: 10 e-Cigarette/Vaping Use: Never Used Second Hand Smoke Exposure: Yes service: No Current occupational status: employed Cognitive needs: No Hearing needs: No Vision needs: No Questionnaire PHQ-9 Over the last 2 weeks, how often have you been bothered by any of the following problems? 1. Little interest or pleasure in doing things: several days 2. Feeling down, depressed, or hopeless: several days 3. Trouble falling or staying asleep, or sleeping too much: several days 4. Feeling tired or having little energy: several days 5. Poor appetite or overeating: several days 6. Feeling bad about yourself - or that you are a failure or have let yourself or your family down: several days 7. Trouble concentrating on things, such as reading the newspaper or watching television: not at all 8. Moving or speaking so slowly that other people could have noticed. Or the opposite - being so fidgety or restless that you have been moving around a lot more than usual: not at all 9. Thoughts that you would be better off or of hurting yourself in some way: not at all Total score: 6 Depression Screening Interpretation: Positive Depression Screening Follow-up: Follow-up Visit Requested Depression Screening Done: Yes 50091 - PHQ-9 Billing: Yes Source: Developed by Drs. Jeronimo Kenney, Shawna Grier, Floyd Marcelo and colleagues, with an educational yara from [employer]. Thrive Questionnaire Date Thrive assessed: 02/28/25 I am a: Patient What is your living situation today?: I choose not to answer this question Within the past 12 months, did the food you bought not last and you didn't have the money to get more?: Sometimes True Within the past 12 months, did you worry whether your food would run out before you got money to buy more?: Sometimes True Do you have trouble paying for medicines?: No Do you have trouble getting transportation to medical appointments?: No Do you have trouble paying your heating and electricity bill?: Yes Do you have trouble taking care of your child, family member or friend?: No Do you have trouble with day-to-day activities such as bathing, preparing meals, shopping, managing finances, etc.?: No Are you currently unemployed and looking for a job?: Yes Are you interested in more education?: I choose not to answer this question Currently or been in a relationship where the following occur: No concerns reported THRIVE Score: 3 AUDIT C Alcohol Use Questionnaire (AUDIT-C) 1. How often do you have a drink containing alcohol?: Never 3. How often do you have six or more drinks on one occasion?: Never Total Score: 0 Score Reviewed/Action Taken: Yes FRANCHESCA-7 AMB Questionnaire FRANCHESCA-7 Date FRANCHESCA - 7 assessed: 04/25/25 Feeling nervous, anxious, or on edge: 0 = Not at all Not being able to stop or control worryin = Not at all Worrying too much about different things: 0 = Not at all Trouble relaxin = Not at all Being so restless that it is hard to sit still: 0 = Not at all Becoming easily annoyed or irritable: 0 = Not at all Feeling afraid as if something awful might happen: 0 = Not at all Total FRANCHESCA-7 score (0-4 normal; 5-9 mild; 10-14 moderate; 15-21 severe): 0 Source: Developed by Drs. Jeronimo Kenney, Shawna Grier, Floyd Marcelo and colleagues, with an educational yara from [employer]. Review of Systems Const Denies fatigue, Denies fever(s) and Denies headache(s) ENT Denies dysphagia, Denies dizziness, Denies otalgia, Denies headache(s), Denies neck pain, Denies odynophagia and Denies sore throat Card Denies chest pain, Denies rapid heart rate, Denies irregular heart rhythm, Denies palpitations and Denies dyspnea Resp Denies chest congestion, Denies cough and Denies dyspnea GI Denies abdominal pain, Denies constipation, Denies dysphagia, Denies heartburn, Denies diarrhea, Denies nausea, Denies odynophagia and Denies vomiting Denies difficulty voiding, Denies nocturia, Denies dysuria and Denies urinary urgency Musc Reports back pain (over the lower back - chronic), Reports arthralgias (in the left knee - mostly when the cyst on the side of the knee swells up ) and Denies neck pain Skin/Breast Denies rash Neuro Denies dizziness, Denies headache(s) and Denies paresthesias Psych Denies anxiety and Denies depression Endo Denies fatigue and Denies palpitations Silas/Lymph Denies easy bruising Physical exam (Primary Care) Vital Signs: Last Vital Signs Temp 97.1 F 05/23/25 09:59 Pulse 75 05/23/25 09:59 Resp 16 05/23/25 09:59 BP 126/64 05/23/25 09:59 Pulse Ox 95 05/23/25 09:59 Oxygen Delivery Method Room Air 05/23/25 09:59 BMI result Body Mass Index 22.8 Tobacco/Smoking Status: Tobacco use Status Tobacco use date assessed 05/23/25 05/23/25 10:02 Patient Tobacco Use Status Current everyday Tobacco 05/23/25 10:02 Tobacco use type Cigarette 05/23/25 10:02 e-Cigarette/Vaping Use Never Used 05/23/25 10:02 PHQ-9: PHQ-9 Score PHQ-9: Total score 6 05/23/25 10:33 Depression Screening Interpretation: Positive Depression Screening Follow-up: Follow-up Visit Requested Thrive Assessment: Date of Thrive Assessment Date Thrive assessed 02/28/25 05/23/25 10:02 Currently or been in a relationship where the following occur: No concerns reported Const General: no acute distress and alert HENMT Ears: TM's normal bilaterally and EAC's normal Throat: Yes posterior oropharynx normal and Yes tonsils normal (no TP congestion) Neck Neck: Yes supple and No lymphadenopathy Thyroid: Thyroid normal Resp Auscultation: clear to auscultation bilaterally, no crackles, no rales and no wheezes Cardio Rate: regular rate Rhythm: regular rhythm Heart sounds: no murmurs GI Palpation (GI): Soft to palpation and nontender Auscultation: normal bowel sounds General: Yes no CVA tenderness Back/Spine/Pelvis Back: no CVA tenderness Thoracic/Lumbar Spine: lumbar spinal tenderness Skin Rashes: no rashes Extrem General: Yes no clubbing, cyanosis or edema Coding Level of Care Code Est Pt Level 4 (73379) Diagnoses Mild intermittent asthma without complication J45.20 Asthma severity: mild Asthma persistence: intermittent Asthma complication type: uncomplicated Degeneration of intervertebral disc of lumbar region with discogenic back pain M51.360 Disc-related pain type: discogenic back pain only Mild chronic anemia D64.9 Seasonal allergic rhinitis, unspecified trigger J30.2 Allergic rhinitis trigger: unspecified Allergic rhinitis seasonality: seasonal Smoker F17.200 Additional Codes PHQ-9 - 38416 - PHQ-9 Billing: Yes ([id number]) Assessment & Plan Assessment & Plan (1) Asthma: Code(s): J45.909 - Unspecified asthma, uncomplicated Category: Medical Qualifiers: Asthma severity: mild Asthma persistence: intermittent Asthma complication type: uncomplicated Qualified Code(s): J45.20 - Mild intermittent asthma, uncomplicated Plan: Controlled Continue Albuterol HFA 1 to 2 inhalations QID PRN (2) Lumbar degenerative disc disease: Comment: chronic Code(s): M51.369 - Other intervertebral disc degeneration, lumbar region without mention of lumbar back pain or lower extremity pain Category: Medical Qualifiers: Disc-related pain type: discogenic back pain only Qualified Code(s): M51.360 - Other intervertebral disc degeneration, lumbar region with discogenic back pain only Plan: Reinforced again activity and weight-lifting restrictions to avoid aggravating her low back pain Continue Oxycodone 10 mg Q 6 hours PRN - Rx refilled (3) Mild chronic anemia: Code(s): D64.9 - Anemia, unspecified Category: Medical Plan: She remains slightly anemic on her recent labs, with H/H at 10.7/31.6 She does not appear to have any microcytosis on hypochromia on her recent labs and she has no evidence of renail impairment so her anemia is most likely related to her monthly menstrual periods Will continue to monitor her CBC regularly for now (4) Allergic rhinitis: Code(s): J30.9 - Allergic rhinitis, unspecified Category: Medical Qualifiers: Allergic rhinitis trigger: unspecified Allergic rhinitis seasonality: seasonal Qualified Code(s): J30.2 - Other seasonal allergic rhinitis Plan: Continue Cetirizine 10 mg QD PRN (5) Smoker: Code(s): F17.200 - Nicotine dependence, unspecified, uncomplicated Category: Social Hx Plan: Patient is counseled again on complete smoking cessation Plan Follow up in 1 month Medications: Changed From albuterol sulfate 90 mcg/actuation 2 puffs inhalation Q4-6H 30 days PRN 8.5 grams 5RF shortness of breath or wheezing To albuterol sulfate 90 mcg/actuation 2 puffs inhalation Q4-6H PRN 8.5 grams 5RF shortness of breath or wheezing 30 days Refilled ibuprofen 600 mg PO TID PRN 90 tabs 5RF pain oxycodone 10 mg PO Q6H PRN 112 tabs 0RF pain 28 days
== END 2025-05-23 10:30 | disposition home or self-care (01) ==
LOC: HO.HMCH 09:57
PROVIDERS: PCP Internal Medicine; Visit Provider Internal Medicine
DX: J45.20 Mild intermittent asthma, uncomplicated (principal); M51.360 Other intervertebral disc degeneration, lumbar region with discogenic back pain only; D64.9 Anemia, unspecified; J30.2 Other seasonal allergic rhinitis; F17.200 Nicotine dependence, unspecified, uncomplicated

== ENCOUNTER → 2025-05-23 09:56 | Outpatient (BNVA) | payer OTHER, SELFPAY | PROVIDERS: PCP Internal Medicine; Visit Provider Internal Medicine | DX: J45.20 Mild intermittent asthma, uncomplicated (principal); M51.360 Other intervertebral disc degeneration, lumbar region with discogenic back pain only; D64.9 Anemia, unspecified; J30.2 Other seasonal allergic rhinitis; F17.210 Nicotine dependence, cigarettes, uncomplicated | CPT/HCPCS: 96127; 99212 ==

== ENCOUNTER 2025-06-20 09:32 | Outpatient (AMB) | payer OTHER, SELFPAY ==
[2025-06-20 09:37] VITALS: BP 120/80; PULSE 81; O2SAT 98; BMI 23.5
--- NOTE | 2025-06-20 09:37 | MHC.PC.OV ---
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 Accompanied by: Self / Same As Patient Allergies No Known Allergies Allergy (Unknown, Verified 06/20/25 10:01) Medication List - Last Reconciled 06/20/25 by Louis Thurston MD albuterol sulfate 2.5 mg (3 mL) inhalation Q4-6H PRN albuterol sulfate 90 mcg/actuation 2 puffs inhalation Q4-6H PRN 30 days cetirizine 10 mg PO DAILY PRN 90 days ibuprofen 600 mg PO TID PRN nebulizers As directed nicotine 1 patch transdermal DAILY oxycodone 10 mg PO Q6H PRN 28 days selenium sulfide 2.5% 1 appl topical DAILY 30 days Tobacco use date assessed: 06/20/25 Dental Screening Dental Screen Date: 06/20/25 Did you have a dental visit in the last 12 months?: Yes Did you have a dental problem in the last 6 months where you did not have access to dental care?: No Was dental information given to patient?: Patient has dentist HPI med f/u HPI Details Patient comes in today for her follow up visit States that she has been experiencing a flare up of her asthma over the past few days and she's had to use her Albuterol inhaler more often lately States that she otherwise just normally uses her rescue inhaler once or twice a week on average Recalls that she came down with sore throat and was running a low grade fever about 2 to 3 days ago, then started having some symptoms of cough and congestion the next day States that her boyfriend has also been sick with similar symptoms for a few days now She denies any headaches or dizziness; throat still feels slightly sore but has had no fever over the past couple of days Denies any chest pains but notes (+) on and off chest tightness and congestion; states that she coughs up some thick whitish phlegm at times No nausea/vomiting, no abdominal pain No change in bowel habits noted Adds that she has also been breaking out in open wounds and sores on both her lower legs repeatedly over the past few weeks and has noticed that some of her wounds seem to take some time before healing up States that her chronic pains (low back pain and joint pains) remain adequately controlled on her current Rx Will need her pain med Rx refilled today PFSH Medical History Smoker Allergic rhinitis Lumbar degenerative disc disease Asthma Surgical History History of colonoscopy H/O tooth extraction History of carpal tunnel release History of D&C History of total cystectomy History of tonsillectomy Family History Father Alive and well Mother Alive and well Maternal Aunt Breast cancer Social History Housing: House Alcohol intake: current Alcohol intake frequency: does not drink Patient Tobacco Use Status: Current everyday Tobacco user Tobacco use type: Cigarette Cigarette Packs Per Day: 0.5 Cigarettes Per Day: 10 e-Cigarette/Vaping Use: Never Used Second Hand Smoke Exposure: Yes service: No Current occupational status: employed Cognitive needs: No Hearing needs: No Vision needs: No Questionnaire PHQ-9 Over the last 2 weeks, how often have you been bothered by any of the following problems? Depression Screening Interpretation: Positive Depression Screening Follow-up: Follow-up Visit Requested Depression Screening Done: Yes Source: Developed by Drs. Jeronimo Kenney, Shawna Grier, Floyd Marcelo and colleagues, with an educational yara from [employer]. Thrive Questionnaire Date Thrive assessed: 02/28/25 I am a: Patient What is your living situation today?: I choose not to answer this question Within the past 12 months, did the food you bought not last and you didn't have the money to get more?: Sometimes True Within the past 12 months, did you worry whether your food would run out before you got money to buy more?: Sometimes True Do you have trouble paying for medicines?: No Do you have trouble getting transportation to medical appointments?: No Do you have trouble paying your heating and electricity bill?: Yes Do you have trouble taking care of your child, family member or friend?: No Do you have trouble with day-to-day activities such as bathing, preparing meals, shopping, managing finances, etc.?: No Are you currently unemployed and looking for a job?: Yes Are you interested in more education?: I choose not to answer this question Currently or been in a relationship where the following occur: No concerns reported THRIVE Score: 3 AUDIT C Alcohol Use Questionnaire (AUDIT-C) 1. How often do you have a drink containing alcohol?: Never 3. How often do you have six or more drinks on one occasion?: Never Total Score: 0 Score Reviewed/Action Taken: Yes FRANCHESCA-7 AMB Questionnaire FRANCHESCA-7 Date FRANCHESCA - 7 assessed: 04/25/25 Source: Developed by Drs. Jeronimo Kenney, Shawna Grier, Floyd Marcelo and colleagues, with an educational yara from [employer]. Review of Systems Const Denies chills, Reports fatigue, Denies fever(s) (but had low grade fever a few days ago) and Denies headache(s) ENT Denies dysphagia, Denies dizziness, Denies otalgia, Denies headache(s), Denies neck pain, Denies odynophagia and Reports sore throat (mild) Card Denies chest pain, Denies rapid heart rate, Denies palpitations and Reports dyspnea on exertion (at times, mostly mild and relieved with Albuterol inhaler) Resp Reports chest congestion, Reports cough (on and off - see HPI), Reports dyspnea on exertion (at times, mostly mild and relieved with Albuterol inhaler) and Reports wheezing (occasional) GI Denies abdominal pain, Denies constipation, Denies dysphagia, Denies heartburn, Denies diarrhea, Denies nausea, Denies odynophagia and Denies vomiting Denies difficulty voiding, Denies nocturia, Denies dysuria and Denies urinary urgency Musc Reports back pain (over the lower back - chronic), Reports arthralgias (in the left knee - mostly when the cyst on the side of the knee swells up ) and Denies neck pain Skin/Breast Details: (+) couple of open sores (now healing) on both lower legs Denies rash Neuro Denies dizziness, Denies headache(s) and Denies paresthesias Psych Denies anxiety and Denies depression Endo Reports fatigue and Denies palpitations Silas/Lymph Denies easy bruising Aller/Immun Reports wheezing (occasional) Physical exam (Primary Care) Vital Signs: Last Vital Signs Pulse 81 06/20/25 09:37 BP 120/80 06/20/25 09:37 Pulse Ox 98 06/20/25 09:37 Oxygen Delivery Method Room Air 06/20/25 09:37 BMI result Body Mass Index 23.5 Tobacco/Smoking Status: Tobacco use Status Tobacco use date assessed 06/20/25 06/20/25 09:42 Patient Tobacco Use Status Current everyday Tobacco 06/20/25 09:42 Tobacco use type Cigarette 06/20/25 09:42 e-Cigarette/Vaping Use Never Used 06/20/25 09:42 Depression Screening Interpretation: Positive Depression Screening Follow-up: Follow-up Visit Requested Thrive Assessment: Date of Thrive Assessment Date Thrive assessed 02/28/25 06/20/25 09:42 Currently or been in a relationship where the following occur: No concerns reported Const General: no acute distress and alert HENMT Throat: Yes tonsils normal (no TP congestion) and Yes posterior oropharynx abnormal ((+) mild erythema of the posterior pharyngeal wall) Neck Neck: Yes supple and No lymphadenopathy Thyroid: Thyroid normal Resp Auscultation: no crackles, no rales, rhonchi (scattered), wheezes (occasional) expiratory wheezes and diminished lung sounds (slightly) bilateral Cardio Rate: regular rate Rhythm: regular rhythm Heart sounds: no murmurs GI Palpation (GI): Soft to palpation and nontender Auscultation: normal bowel sounds General: Yes no CVA tenderness Back/Spine/Pelvis Back: no CVA tenderness Thoracic/Lumbar Spine: lumbar spinal tenderness Skin Other: (+) 1 to 2 healing sores/superficial wounds on both lower legs, some with mild erythema around the wounds Rashes: no rashes Extrem General: Yes no clubbing, cyanosis or edema Coding Level of Care Code Est Pt Level 4 (65368) Diagnoses Moderate persistent asthma with exacerbation J45.41 Asthma severity: moderate Asthma persistence: persistent Degeneration of intervertebral disc of lumbar region with discogenic back pain M51.360 Disc-related pain type: discogenic back pain only Mild chronic anemia D64.9 Seasonal allergic rhinitis, unspecified trigger J30.2 Allergic rhinitis trigger: unspecified Allergic rhinitis seasonality: seasonal Wound of lower extremity, unspecified laterality, sequela S81.809S Encounter type: sequela Laterality: unspecified laterality Smoker F17.200 Assessment & Plan Assessment & Plan (1) Asthma exacerbation: Code(s): J45.901 - Unspecified asthma with (acute) exacerbation Category: Medical Qualifiers: Asthma severity: moderate Asthma persistence: persistent Qualified Code(s): J45.41 - Moderate persistent asthma with (acute) exacerbation Plan: Continue Albuterol HFA 1 to 2 inhalations QID PRN Will start patient empirically on Augmentin 875 mg BID x 7 days - advised that this should also cover her current wounds on both lower legs Will start her as well on oral Prednisone taper Patient is advised to call back if she does not experience any significant improvement of her respiratory symptoms over the next few days (2) Lumbar degenerative disc disease: Comment: chronic Code(s): M51.369 - Other intervertebral disc degeneration, lumbar region without mention of lumbar back pain or lower extremity pain Category: Medical Qualifiers: Disc-related pain type: discogenic back pain only Qualified Code(s): M51.360 - Other intervertebral disc degeneration, lumbar region with discogenic back pain only Plan: Reinforced again activity and weight-lifting restrictions to avoid aggravating her low back pain Continue Oxycodone 10 mg Q 6 hours PRN - Rx refilled (3) Mild chronic anemia: Code(s): D64.9 - Anemia, unspecified Category: Medical Plan: She remains slightly anemic on her most recent labs in March 2025, with H/H at 10.7/31.6 She does not appear to have any microcytosis on hypochromia on her recent labs and she has no evidence of renail impairment so her anemia is most likely related to her monthly menstrual periods Will continue to monitor her CBC regularly for now (4) Allergic rhinitis: Code(s): J30.9 - Allergic rhinitis, unspecified Category: Medical Qualifiers: Allergic rhinitis trigger: unspecified Allergic rhinitis seasonality: seasonal Qualified Code(s): J30.2 - Other seasonal allergic rhinitis Plan: Continue Cetirizine 10 mg QD PRN (5) Wound of lower extremity: Code(s): S81.809A - Unspecified open wound, unspecified lower leg, initial encounter Category: Medical Qualifiers: Encounter type: sequela Laterality: unspecified laterality Qualified Code(s): S81.809S - Unspecified open wound, unspecified lower leg, sequela Plan: Have advised patient that the Augmentin she will be started on should also help cover and clear these up If she continues to break out repeatedly in sores and wounds on her lower legs, then she will need to be evaluated for these further, including rechecking her blood sugar levels (6) Smoker: Code(s): F17.200 - Nicotine dependence, unspecified, uncomplicated Category: Social Hx Plan: Patient is counseled again on complete smoking cessation Plan Follow up in 1 month Medications: New prednisone 4 tablets x 2 days, then 3 tablets x 2 days, then 2 tablets x 2 days, then 1 tablet x 2 days 20 tabs 0RF 8 days J45.901 - Unspecified asthma with (acute) exacerbation, M25.50 - Pain in unspecified joint amoxicillin-pot clavulanate 875-125 mg 1 tab PO BID 14 tabs 0RF 7 days Refilled oxycodone 10 mg PO Q6H PRN 112 tabs 0RF pain 28 days
== END 2025-06-20 10:13 | disposition home or self-care (01) ==
LOC: HO.HMCH 09:33
PROVIDERS: PCP Internal Medicine; Visit Provider Internal Medicine
DX: J45.41 Moderate persistent asthma with (acute) exacerbation (principal); M51.360 Other intervertebral disc degeneration, lumbar region with discogenic back pain only; D64.9 Anemia, unspecified; J30.2 Other seasonal allergic rhinitis; S81.809S Unspecified open wound, unspecified lower leg, sequela; F17.200 Nicotine dependence, unspecified, uncomplicated

== ENCOUNTER → 2025-06-20 09:32 | Outpatient (BNVA) | payer OTHER, SELFPAY | PROVIDERS: PCP Internal Medicine; Visit Provider Internal Medicine | DX: J45.41 Moderate persistent asthma with (acute) exacerbation (principal); M51.360 Other intervertebral disc degeneration, lumbar region with discogenic back pain only; R07.89 Other chest pain; D64.9 Anemia, unspecified; J30.2 Other seasonal allergic rhinitis; S81.801A Unspecified open wound, right lower leg, initial encounter; S81.802A Unspecified open wound, left lower leg, initial encounter; F17.210 Nicotine dependence, cigarettes, uncomplicated; X58.XXXA Exposure to other specified factors, initial encounter; Y93.9 Activity, unspecified; Y92.9 Unspecified place or not applicable; Y99.9 Unspecified external cause status | CPT/HCPCS: 99212 ==

== ENCOUNTER 2025-07-18 09:59 | Outpatient (AMB) | payer OTHER, SELFPAY ==
[2025-07-18 10:05] VITALS: BP 120/80; PULSE 78; O2SAT 98; BMI 23.3
--- NOTE | 2025-07-18 10:05 | A.OFFPC_ITS ---
Vital Signs 07/18/25 10:05 Height 5 ft 5 in Weight 140 lb 2 oz BMI 23.3 BP 120/80 Blood Pressure Location Lt brachial Position Sitting Pulse 78 Pulse Source Pulse Oximeter Pulse Oximetry (%) 98 Oxygen Delivery Method Room Air Intake Visit Reasons: med f/u [employer] Required: No Accompanied by: Self / Same As Patient Allergies No Known Allergies Allergy (Unknown, Verified 07/18/25 10:44) Medication List - Last Reconciled 07/18/25 by Louis Thurston MD albuterol sulfate 2.5 mg (3 mL) inhalation Q4-6H PRN albuterol sulfate 90 mcg/actuation 2 puffs inhalation Q4-6H PRN 30 days cetirizine 10 mg PO DAILY PRN 90 days ibuprofen 600 mg PO TID PRN nebulizers As directed nicotine 1 patch transdermal DAILY oxycodone 10 mg PO Q6H PRN 28 days selenium sulfide 2.5% 1 appl topical DAILY 30 days Tobacco use date assessed: 07/18/25 Dental Screening Dental Screen Date: 07/18/25 Did you have a dental visit in the last 12 months?: Yes Did you have a dental problem in the last 6 months where you did not have access to dental care?: No Was dental information given to patient?: Patient has dentist HPI med f/u HPI Details Patient comes in today for her follow up visit States that she feels okay and that all of the respiratory symptoms that she had last month have all cleared up completely She denies any headaches or dizziness Denies any chest pains, no increased shortness of breath No nausea/vomiting, no abdominal pain No change in bowel habits noted States that her chronic low back pain and joint pains remain adequately controlled on her current Rx Will need her pain med Rx refilled today [facility] Medical History Smoker Allergic rhinitis Lumbar degenerative disc disease Asthma Surgical History History of colonoscopy H/O tooth extraction History of carpal tunnel release History of D&C History of total cystectomy History of tonsillectomy Family History Father Alive and well Mother Alive and well Maternal Aunt Breast cancer Social History Housing: House Alcohol intake: current Alcohol intake frequency: does not drink Patient Tobacco Use Status: Current everyday Tobacco user Tobacco use type: Cigarette Cigarette Packs Per Day: 0.5 Cigarettes Per Day: 10 e-Cigarette/Vaping Use: Never Used Second Hand Smoke Exposure: Yes service: No Current occupational status: employed Cognitive needs: No Hearing needs: No Vision needs: No Questionnaire Thrive Questionnaire Date Thrive assessed: 02/28/25 I am a: Patient What is your living situation today?: I choose not to answer this question Within the past 12 months, did the food you bought not last and you didn't have the money to get more?: Sometimes True Within the past 12 months, did you worry whether your food would run out before you got money to buy more?: Sometimes True Do you have trouble paying for medicines?: No Do you have trouble getting transportation to medical appointments?: No Do you have trouble paying your heating and electricity bill?: Yes Do you have trouble taking care of your child, family member or friend?: No Do you have trouble with day-to-day activities such as bathing, preparing meals, shopping, managing finances, etc.?: No Are you currently unemployed and looking for a job?: Yes Are you interested in more education?: I choose not to answer this question Currently or been in a relationship where the following occur: No concerns reported THRIVE Score: 3 AUDIT C Alcohol Use Questionnaire (AUDIT-C) 1. How often do you have a drink containing alcohol?: Never 3. How often do you have six or more drinks on one occasion?: Never Total Score: 0 Score Reviewed/Action Taken: Yes FRANCHESCA-7 AMB Questionnaire FRANCHESCA-7 Date FRANCHESCA - 7 assessed: 04/25/25 Source: Developed by Drs. Jeronimo Kenney, Shawna Grier, Floyd Marcelo and colleagues, with an educational yara from [employer]. Review of Systems Const Denies chills, Denies fatigue, Denies fever(s) and Denies headache(s) ENT Denies dysphagia, Denies dizziness, Denies otalgia, Denies headache(s), Denies neck pain, Denies odynophagia and Denies sore throat Card Denies chest pain, Denies rapid heart rate, Denies irregular heart rhythm, Denies palpitations and Denies dyspnea Resp Denies chest congestion, Denies cough and Denies dyspnea GI Denies abdominal pain, Denies constipation, Denies dysphagia, Denies heartburn, Denies diarrhea, Denies nausea, Denies odynophagia and Denies vomiting Denies difficulty voiding, Denies nocturia, Denies dysuria and Denies urinary urgency Musc Reports back pain (over the lower back - chronic), Reports arthralgias (in the left knee - mostly when the cyst on the side of the knee swells up ) and Denies neck pain Skin/Breast Denies rash Neuro Denies dizziness, Denies headache(s) and Denies paresthesias Psych Denies anxiety and Denies depression Endo Denies fatigue and Denies palpitations Silas/Lymph Denies easy bruising Physical exam (Primary Care) Vital Signs: Last Vital Signs Pulse 78 07/18/25 10:05 BP 120/80 07/18/25 10:05 Pulse Ox 98 07/18/25 10:05 Oxygen Delivery Method Room Air 07/18/25 10:05 BMI result Body Mass Index 23.3 Tobacco/Smoking Status: Tobacco use Status Tobacco use date assessed 07/18/25 07/18/25 10:17 Patient Tobacco Use Status Current everyday Tobacco 07/18/25 10:17 Tobacco use type Cigarette 07/18/25 10:17 e-Cigarette/Vaping Use Never Used 07/18/25 10:17 Thrive Assessment: Date of Thrive Assessment Date Thrive assessed 02/28/25 07/18/25 10:17 Currently or been in a relationship where the following occur: No concerns reported Const General: no acute distress and alert HENMT Ears: TM's normal bilaterally and EAC's normal Throat: Yes posterior oropharynx normal and Yes tonsils normal (no TP congestion) Neck Neck: Yes supple and No lymphadenopathy Thyroid: Thyroid normal Resp Auscultation: clear to auscultation bilaterally, no crackles and no rales Cardio Rate: regular rate Rhythm: regular rhythm Heart sounds: no murmurs GI Palpation (GI): Soft to palpation and nontender Auscultation: normal bowel sounds General: Yes no CVA tenderness Back/Spine/Pelvis Back: no CVA tenderness Thoracic/Lumbar Spine: lumbar spinal tenderness Skin Rashes: no rashes Extrem General: Yes no clubbing, cyanosis or edema Coding Level of Care Code Est Pt Level 4 (99924) Diagnoses Mild intermittent asthma without complication J45.20 Asthma severity: mild Asthma persistence: intermittent Asthma complication type: uncomplicated Degeneration of intervertebral disc of lumbar region with discogenic back pain M51.360 Disc-related pain type: discogenic back pain only Mild chronic anemia D64.9 Seasonal allergic rhinitis, unspecified trigger J30.2 Allergic rhinitis trigger: unspecified Allergic rhinitis seasonality: seasonal Smoker F17.200 Assessment & Plan Assessment & Plan (1) Asthma: Code(s): J45.909 - Unspecified asthma, uncomplicated Category: Medical Qualifiers: Asthma severity: mild Asthma persistence: intermittent Asthma complication type: uncomplicated Qualified Code(s): J45.20 - Mild intermittent asthma, uncomplicated Plan: Controlled Continue Albuterol HFA 1 to 2 inhalations QID PRN (2) Lumbar degenerative disc disease: Comment: chronic Code(s): M51.369 - Other intervertebral disc degeneration, lumbar region without mention of lumbar back pain or lower extremity pain Category: Medical Qualifiers: Disc-related pain type: discogenic back pain only Qualified Code(s): M51.360 - Other intervertebral disc degeneration, lumbar region with discogenic back pain only Plan: Reinforced again activity and weight-lifting restrictions to avoid aggravating her low back pain Continue Oxycodone 10 mg Q 6 hours PRN - Rx refilled (3) Mild chronic anemia: Code(s): D64.9 - Anemia, unspecified Category: Medical Plan: She remains slightly anemic on her recent labs, with H/H at 10.7/31.6 She does not appear to have any microcytosis on hypochromia on her recent labs and she has no evidence of renail impairment so her anemia is most likely related to her monthly menstrual periods Will continue to monitor her CBC regularly for now (4) Allergic rhinitis: Code(s): J30.9 - Allergic rhinitis, unspecified Category: Medical Qualifiers: Allergic rhinitis trigger: unspecified Allergic rhinitis seasonality: seasonal Qualified Code(s): J30.2 - Other seasonal allergic rhinitis Plan: Continue Cetirizine 10 mg QD PRN (5) Smoker: Code(s): F17.200 - Nicotine dependence, unspecified, uncomplicated Category: Social Hx Plan: Patient is counseled again on complete smoking cessation Plan Follow up in 1 month Medications: Refilled oxycodone 10 mg PO Q6H PRN 112 tabs 0RF pain 28 days
== END 2025-07-18 10:47 | disposition home or self-care (01) ==
LOC: HO.HMCH 10:00
PROVIDERS: PCP Internal Medicine; Visit Provider Internal Medicine
DX: J45.20 Mild intermittent asthma, uncomplicated (principal); M51.360 Other intervertebral disc degeneration, lumbar region with discogenic back pain only; D64.9 Anemia, unspecified; J30.2 Other seasonal allergic rhinitis; F17.200 Nicotine dependence, unspecified, uncomplicated

== ENCOUNTER → 2025-07-18 09:59 | Outpatient (BNVA) | payer OTHER, SELFPAY | PROVIDERS: PCP Internal Medicine; Visit Provider Internal Medicine | DX: J45.20 Mild intermittent asthma, uncomplicated (principal); M51.360 Other intervertebral disc degeneration, lumbar region with discogenic back pain only; D64.9 Anemia, unspecified; J30.2 Other seasonal allergic rhinitis; F17.210 Nicotine dependence, cigarettes, uncomplicated | CPT/HCPCS: 99212 ==

== ENCOUNTER 2025-08-15 09:27 | Outpatient (AMB) | payer OTHER, SELFPAY ==
[2025-08-15 09:41] VITALS: BP 100/62; PULSE 89; TEMP 36.3; O2SAT 96; BMI 22.5
--- NOTE | 2025-08-15 09:41 | A.OFFPC_ITS ---
Vital Signs 08/15/25 09:41 Height 5 ft 5 in Weight 135 lb 4 oz BMI 22.5 BP 100/62 Blood Pressure Location Lt brachial Position Sitting Pulse 89 Pulse Source Pulse Oximeter Temp 97.3 F Temp Source Temporal Artery Scan Pulse Oximetry (%) 96 Oxygen Delivery Method Room Air Intake Visit Reasons: med f/u Woolen Suiting Shrinker Required: No Accompanied by: Self / Same As Patient Allergies No Known Allergies Allergy (Unknown, Verified 08/15/25 10:09) Medication List - Last Reconciled 08/15/25 by Louis Thurston MD albuterol sulfate 2.5 mg (3 mL) inhalation Q4-6H PRN albuterol sulfate 90 mcg/actuation 2 puffs inhalation Q4-6H PRN 30 days cetirizine 10 mg PO DAILY PRN 90 days ibuprofen 600 mg PO TID PRN nebulizers As directed nicotine 1 patch transdermal DAILY oxycodone 10 mg PO Q6H PRN 28 days selenium sulfide 2.5% 1 appl topical DAILY 30 days Tobacco use date assessed: 07/18/25 Dental Screening Dental Screen Date: 08/15/25 Did you have a dental visit in the last 12 months?: Yes Did you have a dental problem in the last 6 months where you did not have access to dental care?: No Was dental information given to patient?: Patient has dentist HPI med f/u HPI Details Patient comes in today for her follow up visit States that she has been feeling very congested again for the past week - states that her chest feels tight often and she has a hard time coughing up her phlegm States that she has been taking some OTC Mucinex for the past couple of days to help with her coughing She has not been able to use her nebulizer lately as she is missing a piece for her nebulizer tubing wherein the Albuterol solution is supposed to go in so she will need a new Rx for the tubing and accessories now States that she has just been getting by with using her Albuterol inhaler PRN for the past few days She denies any fever or sore throat; denies any headaches or dizziness Denies any chest pains and states that her chest has been feeling tight and congested often lately No nausea/vomiting, no abdominal pain No change in bowel habits noted States that her chronic low back pain and joint pains remain adequately controlled on her current Rx and she will need her pain med Rx refilled today as well PFSH Medical History Smoker Allergic rhinitis Lumbar degenerative disc disease Asthma Surgical History History of colonoscopy H/O tooth extraction History of carpal tunnel release History of D&C History of total cystectomy History of tonsillectomy Family History Father Alive and well Mother Alive and well Maternal Aunt Breast cancer Social History Housing: House Alcohol intake: current Alcohol intake frequency: does not drink Patient Tobacco Use Status: Current everyday Tobacco user Tobacco use type: Cigarette Cigarette Packs Per Day: 0.5 Cigarettes Per Day: 10 e-Cigarette/Vaping Use: Never Used Second Hand Smoke Exposure: Yes service: No Current occupational status: employed Cognitive needs: No Hearing needs: No Vision needs: No Questionnaire PHQ-9 Over the last 2 weeks, how often have you been bothered by any of the following problems? Depression Screening Interpretation: Positive Depression Screening Follow-up: Follow-up Visit Requested Depression Screening Done: Yes Source: Developed by Drs. Jeronimo Kenney, Shawna Grier, Floyd Marcelo and colleagues, with an educational yara from [employer]. Thrive Questionnaire Date Thrive assessed: 02/28/25 I am a: Patient What is your living situation today?: I choose not to answer this question Within the past 12 months, did the food you bought not last and you didn't have the money to get more?: Sometimes True Within the past 12 months, did you worry whether your food would run out before you got money to buy more?: Sometimes True Do you have trouble paying for medicines?: No Do you have trouble getting transportation to medical appointments?: No Do you have trouble paying your heating and electricity bill?: Yes Do you have trouble taking care of your child, family member or friend?: No Do you have trouble with day-to-day activities such as bathing, preparing meals, shopping, managing finances, etc.?: No Are you currently unemployed and looking for a job?: Yes Are you interested in more education?: I choose not to answer this question Currently or been in a relationship where the following occur: No concerns reported THRIVE Score: 3 AUDIT C Alcohol Use Questionnaire (AUDIT-C) 1. How often do you have a drink containing alcohol?: Never 3. How often do you have six or more drinks on one occasion?: Never Total Score: 0 Score Reviewed/Action Taken: Yes FRANCHESCA-7 AMB Questionnaire FRANCHESCA-7 Date FRANCHESCA - 7 assessed: 04/25/25 Source: Developed by Drs. Jeronimo Kenney, Shawna Grier, Floyd Marcelo and colleagues, with an educational yara from [employer]. Review of Systems Const Denies chills, Reports fatigue, Denies fever(s) and Denies headache(s) ENT Denies dysphagia, Denies dizziness, Denies otalgia, Denies headache(s), Reports nasal congestion, Denies neck pain, Denies odynophagia and Denies sore throat Card Denies chest pain, Denies rapid heart rate, Denies palpitations and Reports dyspnea (chest feels congested and tight often for the past week) Resp Reports chest congestion (chest feels tight often), Reports cough (has a hard time coughing up any phlegm), Reports dyspnea (chest feels congested and tight often for the past week) and Reports wheezing (lately) GI Denies abdominal pain, Denies constipation, Denies dysphagia, Denies heartburn, Denies diarrhea, Denies nausea, Denies odynophagia and Denies vomiting Denies difficulty voiding, Denies nocturia, Denies dysuria and Denies urinary urgency Musc Reports back pain (over the lower back - chronic), Reports arthralgias (in the left knee - on and off) and Denies neck pain Skin/Breast Denies rash Neuro Denies dizziness, Denies headache(s) and Denies paresthesias Psych Denies anxiety and Denies depression Endo Reports fatigue and Denies palpitations Silas/Lymph Denies easy bruising Aller/Immun Reports wheezing (lately) Physical exam (Primary Care) Vital Signs: Last Vital Signs Temp 97.3 F 08/15/25 09:41 Pulse 89 08/15/25 09:41 BP 100/62 08/15/25 09:41 Pulse Ox 96 08/15/25 09:41 Oxygen Delivery Method Room Air 08/15/25 09:41 BMI result Body Mass Index 22.5 Tobacco/Smoking Status: Tobacco use Status Tobacco use date assessed 07/18/25 08/15/25 09:43 Patient Tobacco Use Status Current everyday Tobacco 08/15/25 09:43 Tobacco use type Cigarette 08/15/25 09:43 e-Cigarette/Vaping Use Never Used 08/15/25 09:43 Depression Screening Interpretation: Positive Depression Screening Follow-up: Follow-up Visit Requested Thrive Assessment: Date of Thrive Assessment Date Thrive assessed 02/28/25 08/15/25 09:43 Currently or been in a relationship where the following occur: No concerns reported Const General: no acute distress and alert HENMT Ears: TM's normal bilaterally and EAC's normal Throat: Yes posterior oropharynx normal and Yes tonsils normal (no TP congestion) Neck Neck: Yes supple and No lymphadenopathy Thyroid: Thyroid normal Resp Auscultation: no crackles, no rales, rhonchi (scattered), wheezes expiratory wheezes and diminished lung sounds (slightly) bilateral Cardio Rate: regular rate Rhythm: regular rhythm Heart sounds: no murmurs GI Palpation (GI): Soft to palpation and nontender Auscultation: normal bowel sounds General: Yes no CVA tenderness Back/Spine/Pelvis Back: no CVA tenderness Thoracic/Lumbar Spine: lumbar spinal tenderness Skin Rashes: no rashes Extrem General: Yes no clubbing, cyanosis or edema Coding Level of Care Code Est Pt Level 4 (83653) Diagnoses Moderate persistent asthma with exacerbation J45.41 Asthma severity: moderate Asthma persistence: persistent Lumbar degenerative disc disease M51.369 Mild chronic anemia D64.9 Seasonal allergic rhinitis, unspecified trigger J30.2 Allergic rhinitis trigger: unspecified Allergic rhinitis seasonality: seasonal Smoker F17.200 Assessment & Plan Assessment & Plan (1) Asthma exacerbation: Code(s): J45.901 - Unspecified asthma with (acute) exacerbation Category: Medical Qualifiers: Asthma severity: moderate Asthma persistence: persistent Qualified Code(s): J45.41 - Moderate persistent asthma with (acute) exacerbation Plan: Will start patient again empirically on Azithromycin QD x 5 days and oral Prednisone taper Will also start her on Pulmicort Flexhaler 180 mcg 1 inhalation BID for controller Tx for her asthma and this should hopefully get her asthma under better control and she should experience fewer exacerbations Continue Albuterol HFA 1 to 2 inhalations Q 6 hours PRN Will also provide her with a printed Rx for her nebulizer tubing and accessories - she is to bring this to her medical supply store [facility] so she will have her nebulizer available for use if needed (2) Lumbar degenerative disc disease: Comment: chronic Code(s): M51.369 - Other intervertebral disc degeneration, lumbar region without mention of lumbar back pain or lower extremity pain Category: Medical Plan: Reinforced again activity and weight-lifting restrictions to avoid aggravating her low back pain Continue Oxycodone 10 mg Q 6 hours PRN - Rx refilled (3) Mild chronic anemia: Code(s): D64.9 - Anemia, unspecified Category: Medical Plan: She remains slightly anemic on her recent labs, with H/H at 10.7/31.6 She does not appear to have any microcytosis on hypochromia on her recent labs and she has no evidence of renal impairment so this is most likely related to her monthly menstrual periods Will continue to monitor her CBC regularly for now (4) Allergic rhinitis: Code(s): J30.9 - Allergic rhinitis, unspecified Category: Medical Qualifiers: Allergic rhinitis trigger: unspecified Allergic rhinitis seasonality: seasonal Qualified Code(s): J30.2 - Other seasonal allergic rhinitis Plan: Continue Cetirizine 10 mg QD PRN (5) Smoker: Code(s): F17.200 - Nicotine dependence, unspecified, uncomplicated Category: Social Hx Plan: Patient is counseled again on complete smoking cessation, especially in light of her recurrent asthma exacerbations recently Plan Follow up in 1 month Medications: New nebulizer accessories NEBULIZER TUBING and related accessories - use as directed 1 ea 12RF prednisone 4 tablets x 2 days, then 3 tablets x 2 days, then 2 tablets x 2 days, then 1 tablet x 2 days 20 tabs 0RF 8 days J45.901 - Unspecified asthma with (acute) exacerbation, M25.50 - Pain in unspecified joint azithromycin take 500 mg today (day 1), then 250 mg for 4 days (days 2-5) PO 6 tabs 0RF budesonide 180 mcg/actuation (Pulmicort Flexhaler) 1 inh inhalation BID 1 ea 5RF 30 days J45.20 - Mild intermittent asthma, uncomplicated Refilled oxycodone 10 mg PO Q6H PRN 112 tabs 0RF pain 28 days
== END 2025-08-15 10:20 | disposition home or self-care (01) ==
LOC: HO.HMCH 09:27
PROVIDERS: PCP Internal Medicine; Visit Provider Internal Medicine
DX: J45.41 Moderate persistent asthma with (acute) exacerbation (principal); M51.369 Other intervertebral disc degeneration, lumbar region without mention of lumbar back pain or lower extremity pain; D64.9 Anemia, unspecified; J30.2 Other seasonal allergic rhinitis; F17.200 Nicotine dependence, unspecified, uncomplicated

== ENCOUNTER → 2025-08-15 09:27 | Outpatient (BNVA) | payer OTHER, SELFPAY | PROVIDERS: PCP Internal Medicine; Visit Provider Internal Medicine | DX: J45.41 Moderate persistent asthma with (acute) exacerbation (principal); M51.369 Other intervertebral disc degeneration, lumbar region without mention of lumbar back pain or lower extremity pain; D64.9 Anemia, unspecified; J30.2 Other seasonal allergic rhinitis; F17.210 Nicotine dependence, cigarettes, uncomplicated | CPT/HCPCS: 99212 ==

== ENCOUNTER 2025-09-12 09:28 | Outpatient (AMB) | payer OTHER, SELFPAY ==
[2025-09-12 09:38] VITALS: BP 116/78; PULSE 81; O2SAT 98; BMI 21.5
--- NOTE | 2025-09-12 09:38 | A.OFFPC_ITS ---
Vital Signs 09/12/25 09:38 Height 5 ft 5 in Weight 129 lb BMI 21.5 BP 116/78 Blood Pressure Location Lt brachial Position Sitting Pulse 81 Pulse Source Pulse Oximeter Pulse Oximetry (%) 98 Oxygen Delivery Method Room Air Intake Visit Reasons: med f/u Sales Support Representative Required: No Accompanied by: Self / Same As Patient Allergies No Known Allergies Allergy (Unknown, Verified 09/12/25 10:05) Medication List - Last Reconciled 09/12/25 by Louis Thurston MD albuterol sulfate 2.5 mg (3 mL) inhalation Q4-6H PRN albuterol sulfate 90 mcg/actuation 2 puffs inhalation Q4-6H PRN 30 days budesonide 180 mcg/actuation (Pulmicort Flexhaler) 1 inh inhalation BID 30 days cetirizine 10 mg PO DAILY PRN 90 days ibuprofen 600 mg PO TID PRN nebulizer accessories NEBULIZER TUBING and related accessories - use as directed nebulizers As directed nicotine 1 patch transdermal DAILY oxycodone 10 mg PO Q6H PRN 28 days selenium sulfide 2.5% 1 appl topical DAILY 30 days Tobacco use date assessed: 09/12/25 Dental Screening Dental Screen Date: 09/12/25 Did you have a dental visit in the last 12 months?: Yes Did you have a dental problem in the last 6 months where you did not have access to dental care?: No Was dental information given to patient?: Patient has dentist HPI med f/u HPI Details Patient comes in today for her follow up visit States that she was having a hard time coping for a while when her father back in July 2025 but she is now doing better - she has lost about 5 to 6 pounds since she was last here last month States that she has not yet started her Pulmicort inhaler as her pharmacy supposedly did not have it in stock and it took them a while to get her Rx in but she was advised that they have it now and she will be picking up her inhaler and starting on it right way She still has some chest congestion but states that she has not really had too much trouble with her breathing lately She denies any fever or sore throat; denies any headaches or dizziness Denies any chest pains, no increased SOB No nausea/vomiting, no abdominal pain No change in bowel habits noted States that her chronic low back pain and joint pains remain adequately controlled on her current Rx and she needs only her pain med Rx refilled today PFSH Medical History Smoker Allergic rhinitis Lumbar degenerative disc disease Asthma Surgical History History of colonoscopy H/O tooth extraction History of carpal tunnel release History of D&C History of total cystectomy History of tonsillectomy Family History Father Alive and well Mother Alive and well Maternal Aunt Breast cancer Social History Housing: House Alcohol intake: current Alcohol intake frequency: does not drink Patient Tobacco Use Status: Current everyday Tobacco user Tobacco use type: Cigarette Cigarette Packs Per Day: 0.5 Cigarettes Per Day: 10 e-Cigarette/Vaping Use: Never Used Second Hand Smoke Exposure: Yes service: No Current occupational status: employed Cognitive needs: No Hearing needs: No Vision needs: No Questionnaire Thrive Questionnaire Date Thrive assessed: 09/12/25 I am a: Patient What is your living situation today?: I choose not to answer this question Within the past 12 months, did the food you bought not last and you didn't have the money to get more?: Sometimes True Within the past 12 months, did you worry whether your food would run out before you got money to buy more?: Sometimes True Do you have trouble paying for medicines?: No Do you have trouble getting transportation to medical appointments?: No Do you have trouble paying your heating and electricity bill?: Yes Do you have trouble taking care of your child, family member or friend?: No Do you have trouble with day-to-day activities such as bathing, preparing meals, shopping, managing finances, etc.?: No Are you currently unemployed and looking for a job?: Yes Are you interested in more education?: I choose not to answer this question Currently or been in a relationship where the following occur: No concerns reported THRIVE Score: 3 AUDIT C Alcohol Use Questionnaire (AUDIT-C) 1. How often do you have a drink containing alcohol?: Never 3. How often do you have six or more drinks on one occasion?: Never Total Score: 0 Score Reviewed/Action Taken: Yes FRANCHESCA-7 AMB Questionnaire FRANCHESCA-7 Date FRANCHESCA - 7 assessed: 09/12/25 Feeling nervous, anxious, or on edge: 0 = Not at all Not being able to stop or control worryin = Not at all Worrying too much about different things: 0 = Not at all Trouble relaxin = Not at all Being so restless that it is hard to sit still: 0 = Not at all Becoming easily annoyed or irritable: 0 = Not at all Feeling afraid as if something awful might happen: 0 = Not at all Total FRANCHESCA-7 score (0-4 normal; 5-9 mild; 10-14 moderate; 15-21 severe): 0 Source: Developed by Drs. Jeronimo Kenney, Shawna Grier, Floyd Marcelo and colleagues, with an educational yara from [email or web address]. Review of Systems Const Denies chills, Reports fatigue, Denies fever(s), Denies headache(s) and Reports weight loss ENT Denies dysphagia, Denies dizziness, Denies otalgia, Denies headache(s), Denies neck pain, Denies odynophagia and Denies sore throat Card Denies chest pain, Denies rapid heart rate, Denies palpitations and Reports dyspnea on exertion (mild) Resp Reports chest congestion (mild), Reports cough (on and off; non-productive), Denies pain with cough, Reports dyspnea on exertion (mild) and Denies wheezing GI Denies abdominal pain, Denies constipation, Denies dysphagia, Denies heartburn, Denies diarrhea, Denies nausea, Denies odynophagia and Denies vomiting Denies difficulty voiding, Denies nocturia and Denies dysuria Musc Reports back pain (over the lower back - chronic), Reports arthralgias (in the left knee - on and off) and Denies neck pain Skin/Breast Denies rash Neuro Denies dizziness, Denies headache(s) and Denies paresthesias Psych Denies anxiety and Denies depression Endo Reports fatigue and Denies palpitations Silas/Lymph Denies easy bruising Aller/Immun Denies wheezing Physical exam (Primary Care) Vital Signs: Last Vital Signs Pulse 81 09/12/25 09:38 BP 116/78 09/12/25 09:38 Pulse Ox 98 09/12/25 09:38 Oxygen Delivery Method Room Air 09/12/25 09:38 BMI result Body Mass Index 21.5 Tobacco/Smoking Status: Tobacco use Status Tobacco use date assessed 09/12/25 09/12/25 09:43 Patient Tobacco Use Status Current everyday Tobacco 09/12/25 09:43 Tobacco use type Cigarette 09/12/25 09:43 e-Cigarette/Vaping Use Never Used 09/12/25 09:43 Thrive Assessment: Date of Thrive Assessment Date Thrive assessed 09/12/25 09/12/25 09:43 Currently or been in a relationship where the following occur: No concerns reported Const General: no acute distress and alert HENMT Ears: TM's normal bilaterally and EAC's normal Throat: Yes posterior oropharynx normal and Yes tonsils normal (no TP congestion) Neck Neck: Yes supple and No lymphadenopathy Thyroid: Thyroid normal Resp Auscultation: no crackles, no rales, rhonchi (occasional) upper bilaterally, no wheezes and diminished lung sounds (slightly) bilateral Cardio Rate: regular rate Rhythm: regular rhythm Heart sounds: no murmurs GI Palpation (GI): Soft to palpation and nontender Auscultation: normal bowel sounds General: Yes no CVA tenderness Back/Spine/Pelvis Back: no CVA tenderness Thoracic/Lumbar Spine: lumbar spinal tenderness Skin Rashes: no rashes Extrem General: Yes no clubbing, cyanosis or edema Coding Level of Care Code Est Pt Level 4 (50090) Diagnoses Mild intermittent asthma without complication J45.20 Asthma severity: mild Asthma persistence: intermittent Asthma complication type: uncomplicated Degeneration of intervertebral disc of lumbar region with discogenic back pain M51.360 Disc-related pain type: discogenic back pain only Mild chronic anemia D64.9 Seasonal allergic rhinitis, unspecified trigger J30.2 Allergic rhinitis trigger: unspecified Allergic rhinitis seasonality: seasonal Smoker F17.200 Assessment & Plan Assessment & Plan (1) Asthma: Code(s): J45.909 - Unspecified asthma, uncomplicated Category: Medical Qualifiers: Asthma severity: mild Asthma persistence: intermittent Asthma complication type: uncomplicated Qualified Code(s): J45.20 - Mild intermittent asthma, uncomplicated Plan: Patient is advised that her asthma still does not appear to be adequately controlled She is also still actively smoking Have advised her to get her Pulmicort inhaler Rx from her pharmacy [facility] and to start using it BID DAILY as her controller inhaler and hopefully this should help gradually get her asthma under control, with fewer exacerbations Continue Albuterol HFA 1 to 2 inhalations Q 6 hours PRN She has also been advised again to quit smoking completely as soon as possible, something she is still struggling with at this time (2) Lumbar degenerative disc disease: Comment: chronic Code(s): M51.369 - Other intervertebral disc degeneration, lumbar region without mention of lumbar back pain or lower extremity pain Category: Medical Qualifiers: Disc-related pain type: discogenic back pain only Qualified Code(s): M51.360 - Other intervertebral disc degeneration, lumbar region with discogenic back pain only Plan: Reinforced again activity and weight-lifting restrictions to avoid aggravating her low back pain Continue Oxycodone 10 mg Q 6 hours PRN - Rx refilled (3) Mild chronic anemia: Code(s): D64.9 - Anemia, unspecified Category: Medical Plan: She remains slightly anemic on her recent labs, with H/H at 10.7/31.6 She does not appear to have any microcytosis on hypochromia on her recent labs and she has no evidence of renal impairment so this is most likely related to her monthly menstrual periods and iron deficiency/iron loss Will continue to monitor her CBC regularly for now (4) Allergic rhinitis: Code(s): J30.9 - Allergic rhinitis, unspecified Category: Medical Qualifiers: Allergic rhinitis trigger: unspecified Allergic rhinitis seasonality: seasonal Qualified Code(s): J30.2 - Other seasonal allergic rhinitis Plan: Continue Cetirizine 10 mg QD PRN (5) Smoker: Code(s): F17.200 - Nicotine dependence, unspecified, uncomplicated Category: Social Hx Plan: Patient is counseled again on complete smoking cessation, especially in light of her recurrent asthma exacerbations recently Plan Follow up in 1 month Medications: Refilled oxycodone 10 mg PO Q6H PRN 112 tabs 0RF pain 28 days
== END 2025-09-12 10:11 | disposition home or self-care (01) ==
LOC: HO.HMCH 09:30
PROVIDERS: PCP Internal Medicine; Visit Provider Internal Medicine
DX: J45.20 Mild intermittent asthma, uncomplicated (principal); M51.360 Other intervertebral disc degeneration, lumbar region with discogenic back pain only; D64.9 Anemia, unspecified; J30.2 Other seasonal allergic rhinitis; F17.200 Nicotine dependence, unspecified, uncomplicated

== ENCOUNTER → 2025-09-12 09:28 | Outpatient (BNVA) | payer OTHER, SELFPAY | PROVIDERS: PCP Internal Medicine; Visit Provider Internal Medicine | DX: J45.20 Mild intermittent asthma, uncomplicated (principal); D64.9 Anemia, unspecified; M51.360 Other intervertebral disc degeneration, lumbar region with discogenic back pain only; J30.2 Other seasonal allergic rhinitis; Z13.31 Encounter for screening for depression; Z13.39 Encounter for screening examination for other mental health and behavioral disorders | CPT/HCPCS: 96127; 99212 ==